=== PATIENT | male | born 1960 | race Caucasian/White ===

== ENCOUNTER → 2016-08-22 | Outpatient (CLI) | payer OTHER ==
[~2016-08-22] MED LIST: AMLO10TA2 PO; ASPI81TA83 OR; ATOR1TAB19 PO; BENA10TA2 OR; BISO5TAB5 PO; CHLO25TA PO; COLA100C2 OR; GLYB2.5T6 OR; HYDR25TA6 OR; LABE30TA OR; METF500T4 OR; METF500T4 PO; ONGLYZA PO; PRIL20CA9 PO; RANI150C OR; SIMV20TA2 OR; TYLE500T53 OR
--- NOTE | 2016-08-22 14:06 | REP ---
PA and lateral chest: Comparison is 08/24/2015. There is an incomplete inspiratory effort. The lung devries are under aerated. No infiltrates or effusions are identified. No nodules or masses are identified. Cardiac size is normal. The marlon, mediastinum, and bony thorax are unremarkable. Impression: Under aerated lung devries from an incomplete inspiratory effort. Given the history renal malignancy, I would recommend a repeat study with optimal inspiration or a chest CT. Signed by Sav Latif MD 08/22/2016 01:57 P
[2016-08-22 19:23] LABS: CALCIUM LEVEL 9.3 MG/DL (8.5-10.1); CREATININE FOR GFR 1.53 MG/DL (0.70-1.30); POTASSIUM SERUM 4.3 MEQ/L (3.5-5.1)
== END ==
LOC: M SMT 13:27
PROVIDERS: ATTEND Urology
DX: C64.2 Malignant neoplasm of left kidney, except renal pelvis (principal)

== ENCOUNTER → 2016-09-10 | Outpatient (CLI) | payer OTHER ==
[2016-09-10 13:33] LABS: CREATININE FOR GFR 1.37 MG/DL (0.70-1.30); GLOMERULAR FILTRATION RATE 56.8 (>56)
== END ==
LOC: M LAB 11:20
PROVIDERS: ATTEND Urology
DX: C64.2 Malignant neoplasm of left kidney, except renal pelvis (principal)

== ENCOUNTER → 2016-09-17 | Outpatient (CLI) | payer OTHER ==
[2016-09-17 12:06] LABS: CREATININE FOR GFR 1.43 MG/DL (0.70-1.30); GLOMERULAR FILTRATION RATE 54.1 (>56)
== END ==
LOC: M LAB 11:11
PROVIDERS: ATTEND Urology
DX: C64.2 Malignant neoplasm of left kidney, except renal pelvis (principal)

== ENCOUNTER → 2016-12-19 | Outpatient (REF) | payer OTHER | LOC: M SFHCCLAY 09:26 | PROVIDERS: ATTEND Family Medicine | DX: L02.611 Cutaneous abscess of right foot (principal) ==

== ENCOUNTER → 2017-01-01 | Outpatient (CLI) | payer OTHER ==
[~2017-01-01] MED LIST changes: +GASTROGRAFIN SOLUTION 30ML (Q9963) As Ordered ONE; +ISOVUE-370 76% 100ML VIAL (Q9967) As Ordered ONE
--- NOTE | 2017-01-01 12:28 | REP ---
CT chest with IV contrast: History: Left kidney cancer. CT contrast dose: 100 ml of Isovue 370 is administered intravenously. No comparison CT study. CT findings: There is a spiculated nodule in the left upper lobe adjacent to the pleura measuring 1.7 cm in greatest diameter x 0.9 x 0.8 cm. Primary versus metastatic lung malignancy cannot be excluded. There is a second noncalcified nodule in the right lower lobe measuring 8 mm in diameter. No other pulmonary nodule is seen. There is a small area of subpleural fibrosis in the left lower lobe. No pleural or pericardial effusion is seen. No hilar or mediastinal mass or adenopathy is observed. No extrathoracic mass or adenopathy is seen. Gynecomastia is seen mild in degree bilaterally. There is evidence of mild diffuse fatty infiltration of the liver. No focal liver lesion is seen. The patient is status post left nephrectomy. Gallstones are seen in the gallbladder. There is an area of focal fatty infiltration in the left lobe of the liver. No bony destructive lesion is seen. Impression: 1. Noncalcified pulmonary nodules noted, one in the left upper lobe measuring 1.7 cm and the other in the right lower lobe measuring 0.8 cm in greatest diameter. Primary versus metastatic pulmonary malignancy cannot be excluded. 2. Cholelithiasis. 3. Fatty infiltration of the liver. 4. Gynecomastia. Signed by Carrington Thompson MD 01/01/2017 01:07 P
--- NOTE | 2017-01-01 13:11 | REP ---
CT abdomen and pelvis without and with IV contrast: With oral contrast. History: Left renal malignancy status post left nephrectomy. CT contrast dose: 100 ccs of Isovue 370 is given intravenously. No comparison study. CT findings: There is diffuse fatty infiltration of the liver seen with a geographic area of decreased attenuation in the left lobe consistent with focal fatty liver change. No liver mass lesion is appreciated. There is a second area of focal fatty liver change adjacent to the intrahepatic segment of the IVC. Spleen is unremarkable. The patient is status post left nephrectomy. Pancreas is normal in appearance. There is no evidence of recurrent mass. There are normal sized periaortic lymph nodes noted. No definite adenopathy is seen. Gallstones are noted in the dependent portion of gallbladder. No right adrenal lesion is seen. No right renal mass is seen. Small and large intestinal bowel loops are normal in the abdomen and pelvis. A normal appendix is observed. Seminal vesicles, prostate and urinary bladder are unremarkable. No abdominal wall defect is seen. Bone window settings show no bony destructive lesion. Impression: 1. Cholelithiasis. 2. Foci of fatty infiltration of the liver. 3. Status post left nephrectomy. 4. No other significant abnormality. Signed by Carrington Thompson MD 01/01/2017 02:54 P
== END ==
LOC: M RAD 09:19
PROVIDERS: ATTEND Internal Medicine Hematology & Oncology
DX: C64.2 Malignant neoplasm of left kidney, except renal pelvis (principal); K80.80 Other cholelithiasis without obstruction; K76.0 Fatty (change of) liver, not elsewhere classified; R91.8 Other nonspecific abnormal finding of lung field; N62 Hypertrophy of breast; Z90.5 Acquired absence of kidney
CPT/HCPCS: 71260; 74178; Q9963; Q9967

== ENCOUNTER → 2017-03-22 | Outpatient (CLI) | payer OTHER ==
[~2017-03-22] MED LIST changes: -GASTROGRAFIN SOLUTION 30ML (Q9963) As Ordered ONE; -ISOVUE-370 76% 100ML VIAL (Q9967) As Ordered ONE
--- NOTE | 2017-03-22 14:30 | REP ---
RIGHT FOOT, FOUR VIEWS: HISTORY: Pain. There is no acute fracture or dislocation. There are old fractures of the bases of the 3rd through 5th metatarsals. The joint spaces are normal in appearance. Osteophytes are present on the inferior and posterior calcaneus. IMPRESSION: There is no acute fracture or dislocation.
== END ==
LOC: M CLY 11:05
PROVIDERS: ATTEND Family Medicine
DX: M79.671 Pain in right foot (principal)

== ENCOUNTER → 2017-03-22 | Outpatient (REF) | payer OTHER ==
[2017-03-22 16:36] LABS: ALBUMIN 3.5 GM/DL (3.2-5.2); ANION GAP 9 MEQ/L (8-16); BLOOD UREA NITROGEN 17 MG/DL (7-18); CALCIUM LEVEL 9.4 MG/DL (8.5-10.1); CARBON DIOXIDE LEVEL 28 MEQ/L (21-32); CHLORIDE LEVEL 100 MEQ/L (98-107); GLOMERULAR FILTRATION RATE > 60.0 (>56); GLUCOSE, FASTING 267 MG/DL (70-105); PHOSPHORUS LEVEL 3.2 MG/DL (2.5-4.9); POTASSIUM SERUM 4.1 MEQ/L (3.5-5.1); SODIUM LEVEL 137 MEQ/L (136-145)
== END ==
LOC: M SFHCCLAY 10:42
PROVIDERS: ATTEND Family Medicine
DX: E11.49 Type 2 diabetes mellitus with other diabetic neurological complication (principal)

== ENCOUNTER → 2017-06-16 | Outpatient (CLI) | payer OTHER ==
[2017-06-16 14:34] LABS: BASO % 0.4 % (0.0-1.0); EOS # 0.6 10^3/uL (0.0-0.50); EOS % 5.6 % (0.0-3.0); HEMATOCRIT 43.8 % (42.0-52.0); HEMOGLOBIN 15.7 g/dl (14.0-18.0); IMMATURE GRANULOCYTE % 0.1 % (0-0); LYMPH # 2.8 10^3/uL (1.5-4.5); MEAN CORPUSCULAR HEMOGLOBIN 32.8 pg (27.0-33.0); MEAN CORPUSCULAR HGB CONC 35.8 g/dl (32.0-36.5); MEAN CORPUSCULAR VOLUME 91.6 fl (80.0-96.0); MONO # 0.7 10^3/uL (0.0-0.8); MONO % 6.6 % (0.0-5.0); NEUTROPHILS # 6.3 10^3/uL (1.8-7.7); NEUTROPHILS % 60.3 % (36.0-66.0); PLATELET COUNT, AUTOMATED 256 10^3/uL (150-450); RED BLOOD COUNT 4.78 10^6/uL (4.30-6.10); WHITE BLOOD COUNT 10.5 10^3/uL (4.0-10.0)
[2017-06-16 14:49] LABS: ALBUMIN 3.5 GM/DL (3.2-5.2); ALKALINE PHOSPHATASE 79 U/L (45-117); ALT/SGPT 40 U/L (12-78); ANION GAP 7 MEQ/L (8-16); AST/SGOT 20 U/L (7-37); BILIRUBIN,TOTAL 0.4 MG/DL (0.2-1.0); BLOOD UREA NITROGEN 20 MG/DL (7-18); CALCIUM LEVEL 8.9 MG/DL (8.5-10.1); CARBON DIOXIDE LEVEL 29 MEQ/L (21-32); CHLORIDE LEVEL 100 MEQ/L (98-107); CREATININE FOR GFR 1.37 MG/DL (0.70-1.30); GLOMERULAR FILTRATION RATE 56.6 (>56); GLUCOSE, FASTING 247 MG/DL (70-100); POTASSIUM SERUM 4.1 MEQ/L (3.5-5.1); SODIUM LEVEL 136 MEQ/L (136-145); TOTAL PROTEIN 7.4 GM/DL (6.4-8.2)
== END ==
LOC: M LAB 14:06
DX: C64.2 Malignant neoplasm of left kidney, except renal pelvis (principal)

== ENCOUNTER → 2017-06-18 | Outpatient (CLI) | payer OTHER ==
[~2017-06-18] MED LIST changes: -AMLO10TA2 PO; -ASPI81TA83 OR; -ATOR1TAB19 PO; -BENA10TA2 OR; -BISO5TAB5 PO; -CHLO25TA PO; -COLA100C2 OR; +GASTROGRAFIN SOLUTION 30ML (Q9963) As Ordered; -GLYB2.5T6 OR; -HYDR25TA6 OR; +ISOVUE-370 76% 100ML VIAL (Q9967) As Ordered; -LABE30TA OR; -METF500T4 OR; -METF500T4 PO; -ONGLYZA PO; -PRIL20CA9 PO; -RANI150C OR; -SIMV20TA2 OR; -TYLE500T53 OR
== END ==
LOC: M RAD 12:07
DX: C78.00 Secondary malignant neoplasm of unspecified lung (principal); C64.2 Malignant neoplasm of left kidney, except renal pelvis
CPT/HCPCS: Q9963

== ENCOUNTER → 2017-08-15 | Outpatient (CLI) | payer OTHER ==
[2017-08-15 08:26] LABS: ALBUMIN 3.6 GM/DL (3.2-5.2); ALBUMIN/GLOBULIN RATIO 0.88 (1.00-1.93); ALKALINE PHOSPHATASE 87 U/L (45-117); ALT/SGPT 35 U/L (12-78); ANION GAP 7 MEQ/L (8-16); AST/SGOT 21 U/L (7-37); BILIRUBIN,TOTAL 0.5 MG/DL (0.2-1.0); BLOOD UREA NITROGEN 22 MG/DL (7-18); CALCIUM LEVEL 9.4 MG/DL (8.5-10.1); CARBON DIOXIDE LEVEL 29 MEQ/L (21-32); CHLORIDE LEVEL 103 MEQ/L (98-107); CREATININE FOR GFR 1.12 MG/DL (0.70-1.30); GLOMERULAR FILTRATION RATE > 60.0 (>56); GLUCOSE, FASTING 166 MG/DL (70-100); POTASSIUM SERUM 3.8 MEQ/L (3.5-5.1); SODIUM LEVEL 139 MEQ/L (136-145); TOTAL PROTEIN 7.7 GM/DL (6.4-8.2)
== END ==
LOC: M LAB 07:10
DX: C64.2 Malignant neoplasm of left kidney, except renal pelvis (principal)

== ENCOUNTER → 2017-09-24 | Outpatient (REF) | payer OTHER ==
[2017-09-24 17:19] LABS: ESTIMATED AVERAGE GLUCOSE 209 MG/DL (60-110); HEMOGLOBIN A1c 8.9 %
== END ==
LOC: M SFHCCLAY 09:41
DX: E11.49 Type 2 diabetes mellitus with other diabetic neurological complication (principal)

== ENCOUNTER → 2017-09-24 | Outpatient (REF) | payer OTHER ==
[2017-09-24 18:41] LABS: FREE T4 1.11 NG/DL (0.76-1.46)
== END ==
LOC: M LAB REF 17:31
DX: C64.2 Malignant neoplasm of left kidney, except renal pelvis (principal); C78.00 Secondary malignant neoplasm of unspecified lung
CPT/HCPCS: 84443

== ENCOUNTER → 2017-09-25 | Outpatient (REF) | payer OTHER ==
[2017-09-25 13:46] LABS: INR 0.94; PROTHROMBIN TIME 12.7 SECONDS (12.4-14.5)
[2017-09-25 13:47] LABS: PARTIAL THROMBOPLASTIN TIME 33.8 SECONDS (26.8-37.9)
== END ==
LOC: M LAB REF 12:57
DX: C64.2 Malignant neoplasm of left kidney, except renal pelvis (principal); C78.00 Secondary malignant neoplasm of unspecified lung
CPT/HCPCS: 85610

== ENCOUNTER → 2017-10-01 | Outpatient (CLI) | payer OTHER | END | disposition home or self-care (01) | LOC: M IRPRO 07:08 | DX: C64.9 Malignant neoplasm of unspecified kidney, except renal pelvis (principal); C78.00 Secondary malignant neoplasm of unspecified lung | CPT/HCPCS: 36561 ==

== ENCOUNTER → 2017-10-03 | Outpatient (CLI) | payer OTHER | LOC: M RAD 18:40 | DX: M25.552 Pain in left hip (principal) | CPT/HCPCS: 73502 ==

== ENCOUNTER → 2017-10-14 | Outpatient (CLI) | payer OTHER | LOC: M PLARAD 08:22 | DX: I67.82 Cerebral ischemia (principal); C64.9 Malignant neoplasm of unspecified kidney, except renal pelvis; R42 Dizziness and giddiness | CPT/HCPCS: 70553 ==

== ENCOUNTER → 2017-10-18 | Outpatient (REF) | payer OTHER ==
[2017-10-18 14:00] LABS: FREE T4 1.07 NG/DL (0.76-1.46)
== END ==
LOC: M LAB REF 13:16
DX: Z51.81 Encounter for therapeutic drug level monitoring (principal); Z79.899 Other long term (current) drug therapy

== ENCOUNTER → 2017-10-23 | Outpatient (CLI) | payer OTHER | LOC: M RAD 10:42 | DX: M25.552 Pain in left hip (principal); R07.81 Pleurodynia; C64.2 Malignant neoplasm of left kidney, except renal pelvis | CPT/HCPCS: 78306 ==

== ENCOUNTER → 2017-11-15 | Outpatient (REF) | payer OTHER ==
[2017-11-15 19:44] LABS: FREE T4 1.07 NG/DL (0.76-1.46)
== END ==
LOC: M LAB REF 16:38
DX: C64.9 Malignant neoplasm of unspecified kidney, except renal pelvis (principal); C78.00 Secondary malignant neoplasm of unspecified lung; Z79.899 Other long term (current) drug therapy
CPT/HCPCS: 84443

== ENCOUNTER → 2017-11-18 | Outpatient (REF) | payer OTHER | LOC: M SFHCLERA 12:05 | DX: L30.9 Dermatitis, unspecified (principal) | CPT/HCPCS: 88305 ==

== ENCOUNTER → 2017-11-30 | Outpatient (CLI) | payer OTHER ==
[2017-11-30 13:43] LABS: ALBUMIN 3.5 GM/DL (3.2-5.2); ALBUMIN/GLOBULIN RATIO 0.88 (1.00-1.93); ALKALINE PHOSPHATASE 111 U/L (45-117); ALT/SGPT 24 U/L (12-78); ANION GAP 7 MEQ/L (8-16); AST/SGOT 17 U/L (7-37); BILIRUBIN,TOTAL 0.3 MG/DL (0.2-1.0); BLOOD UREA NITROGEN 20 MG/DL (7-18); CALCIUM LEVEL 9.1 MG/DL (8.5-10.1); CARBON DIOXIDE LEVEL 28 MEQ/L (21-32); CHLORIDE LEVEL 103 MEQ/L (98-107); CREATININE FOR GFR 1.32 MG/DL (0.70-1.30); GLOMERULAR FILTRATION RATE 59.1 (>56); GLUCOSE, FASTING 195 MG/DL (70-100); POTASSIUM SERUM 4.1 MEQ/L (3.5-5.1); SODIUM LEVEL 138 MEQ/L (136-145); TOTAL PROTEIN 7.5 GM/DL (6.4-8.2)
== END ==
LOC: M LAB 12:39
DX: C78.00 Secondary malignant neoplasm of unspecified lung (principal); C64.2 Malignant neoplasm of left kidney, except renal pelvis
CPT/HCPCS: 80053

== ENCOUNTER → 2017-12-02 | Outpatient (CLI) | payer OTHER | LOC: M RAD 11:45 | DX: C64.2 Malignant neoplasm of left kidney, except renal pelvis (principal); C78.00 Secondary malignant neoplasm of unspecified lung | CPT/HCPCS: Q9963 ==

== ENCOUNTER → 2017-12-03 | Outpatient (REF) | payer OTHER ==
[2017-12-03 18:30] LABS: FREE T4 1.04 NG/DL (0.76-1.46)
== END ==
LOC: M LAB REF 17:21
DX: C64.9 Malignant neoplasm of unspecified kidney, except renal pelvis (principal); C78.00 Secondary malignant neoplasm of unspecified lung; Z79.899 Other long term (current) drug therapy

== ENCOUNTER → 2017-12-20 | Outpatient (REF) | payer OTHER ==
[2017-12-20 19:31] LABS: FREE T4 1.08 NG/DL (0.76-1.46)
== END ==
LOC: M LAB REF 16:58
DX: Z79.899 Other long term (current) drug therapy (principal)

== ENCOUNTER → 2018-01-17 | Outpatient (REF) | payer OTHER ==
[2018-01-17 19:33] LABS: FREE T4 1.15 NG/DL (0.76-1.46)
== END ==
LOC: M LAB REF 17:28
DX: Z79.899 Other long term (current) drug therapy (principal); C78.00 Secondary malignant neoplasm of unspecified lung; C79.51 Secondary malignant neoplasm of bone; C64.9 Malignant neoplasm of unspecified kidney, except renal pelvis

== ENCOUNTER → 2018-01-31 | Outpatient (REF) | payer OTHER ==
[2018-01-31 14:46] LABS: FREE T4 1.13 NG/DL (0.76-1.46)
== END ==
LOC: M LAB REF 13:55
DX: Z79.899 Other long term (current) drug therapy (principal); C78.00 Secondary malignant neoplasm of unspecified lung; C79.51 Secondary malignant neoplasm of bone; C64.9 Malignant neoplasm of unspecified kidney, except renal pelvis

== ENCOUNTER → 2018-03-28 | Outpatient (CLI) | payer OTHER | LOC: M RAD 13:59 | DX: M54.2 Cervicalgia (principal) | CPT/HCPCS: 72052 ==

== ENCOUNTER → 2018-04-08 | Outpatient (CLI) | payer OTHER ==
[~2018-04-08] MED LIST changes: +EMLA CREAM 5GM (LIDOCAINE/PRILOCAINE) As Ordered
== END ==
LOC: M RAD 13:49
DX: C64.9 Malignant neoplasm of unspecified kidney, except renal pelvis (principal); Z79.51 Long term (current) use of inhaled steroids; C78.00 Secondary malignant neoplasm of unspecified lung; Z90.5 Acquired absence of kidney; K57.30 Diverticulosis of large intestine without perforation or abscess without bleeding
CPT/HCPCS: Q9963

== ENCOUNTER → 2018-04-25 | Outpatient (CLI) | payer OTHER ==
[~2018-04-25] MED LIST changes: +AMLO10TA4 PO; +ASPI1TAB PO; +ASPI81TA83 OR; +ATOR1TAB19 PO; +BENA10TA2 OR; +BENA40TA7 PO; +BISO10TA6 PO; +BISO5TAB5 PO; +CHLO25TA PO; +CLON-412 PO; +COLA100C2 OR; -EMLA CREAM 5GM (LIDOCAINE/PRILOCAINE) As Ordered; -GASTROGRAFIN SOLUTION 30ML (Q9963) As Ordered; +GLIM4TAB PO; +GLYB2.5T6 OR; +HYDR25TA6 OR; -ISOVUE-370 76% 100ML VIAL (Q9967) As Ordered; +LABE30TA OR; +LANTINJ4 SC; +LORA10CA PO; +METF500T4 OR; +METF500T4 PO; +OMEP20CA3 PO; +ONGLYZA PO; +PRIL20CA9 PO; +RANI150C OR; +SIMV20TA2 OR; +TYLE500T53 OR
--- NOTE | 2018-04-25 11:26 | REP ---
Chest x-ray: Two views. History: Cough and shortness of breath. Kidney cancer. Comparison study: August 22, 2016. Findings: A right-sided [id number] catheter is noted in place. The lungs are well inflated and clear. The pleural angles are sharp. Heart size is normal. No nodule or infiltrate is appreciated. No hilar or mediastinal adenopathy is seen. There are some mild degenerative changes in the thoracic spine. No significant bony abnormality. Impression: Strruo-H-Cmfy catheter in place. No acute disease. Electronically Signed by Carrington Thompson MD 04/25/2018 11:18 A
== END ==
LOC: M RAD 10:29
PROVIDERS: ATTEND Internal Medicine Medical Oncology
DX: M54.2 Cervicalgia (principal); M25.519 Pain in unspecified shoulder

== ENCOUNTER 2018-05-08 09:45 | Outpatient (RCR) | payer OTHER | END 2018-05-12 | LOC: M PT 09:45 | PROVIDERS: ATTEND Internal Medicine Medical Oncology | DX: M54.2 Cervicalgia (principal); M25.512 Pain in left shoulder ==

== ENCOUNTER 2018-06-03 09:40 | Outpatient (RCR) | payer BC, OTHER ==
[~2018-06-03 09:40] MED LIST changes: -AMLO10TA4 PO; +AMLO10TA5 PO; +CEPH500C PO
== END 2018-06-12 ==
LOC: M PT 09:40
PROVIDERS: ATTEND Internal Medicine Medical Oncology
DX: M54.2 Cervicalgia (principal); M25.512 Pain in left shoulder

== ENCOUNTER → 2018-06-05 | Outpatient (CLI) | payer BC ==
[~2018-06-05] MED LIST changes: +METHACHOLINE KIT (J7674) INH ONE
--- NOTE | 2018-06-05 14:42 | PFTRPT ---
Height: 68.00 Inches Weight: 300.00 Lbs BSA: 2.43 Diagnosis: R06.02 DATE OF PROCEDURE: 06/05/2018 ORDERED BY: Dr. Jaime INTERPRETATION: Study of excellent technical quality. Under protocol, methacholine was administered. At a dose of 10 mg or 63.875 CDUs, a 23% decline in the FEV1 was noted. PC of 5.12 is significant. Flow rates did return to baseline post bronchodilator administration. IMPRESSION: Positive methacholine challenge study. MTDD
== END ==
LOC: M CARPUL 05-29 07:31
PROVIDERS: ATTEND Internal Medicine Pulmonary Disease
DX: R06.02 Shortness of breath (principal)
CPT/HCPCS: 94070; J7674

== ENCOUNTER → 2018-07-07 | Outpatient (CLI) | payer BC ==
[~2018-07-07] MED LIST changes: +GASTROGRAFIN SOLUTION 30ML (Q9963) As Ordered ONE; +ISOVUE-370 76% 100ML VIAL (Q9967) As Ordered ONE; -METHACHOLINE KIT (J7674) INH ONE
--- NOTE | 2018-07-07 12:48 | REP ---
Clinical: History of kidney cancer. Technique: Axial contrast enhanced images from the thoracic inlet to the upper abdomen with coronal and sagittal re-formations using 100 ml Isovue 370 intravenous contrast material. Comparison: 04/08/2018. Findings: The lung devries are well-aerated. There has been an obvious increase in quantity and size to the scattered bilateral pulmonary metastatic foci. As example, the largest previously noted metastatic focus in the left lower lobe previously measuring approximately 5.3 mm has increased to 8 mm maximal diameter. No pleural effusion. No pneumothorax. Tracheobronchial tree is patent. No obvious axillary, hilar, or mediastinal adenopathy is identified. Thoracic aorta without aneurysm or dissection. No cardiomegaly or pericardial effusion. Osseous structures are intact without obvious acute abnormality. Impression: Scattered bilateral pulmonary metastatic foci have increased in quantity and size. Electronically Signed by Isidro Prater MD 07/07/2018 12:40 P
--- NOTE | 2018-07-07 13:06 | REP ---
Clinical: History of kidney cancer. Technique: Axial contrast enhanced images from the lung bases to the pubic symphysis using oral oral (per protocol) and 100 ml Isovue 370 intravenous contrast material with delayed images of the abdomen as well as coronal and sagittal re-formations. Comparison: 04/08/2018. Findings: Lung bases demonstrate scattered bilateral pulmonary metastases which are increased from prior examination. Largest lesion in the left lower lobe measures approximately 8 mm diameter. Liver, spleen, pancreas, bilateral adrenal glands and right kidney are essentially normal/stable. Cholelithiasis noted without evidence for acute cholecystitis. The patient is known to be status post left nephrectomy. Few left periaortic retroperitoneal lymph nodes measure up to approximately 8 mm and are otherwise nonspecific but may be slightly more pronounced than prior examination. The enteric system is without obstruction or acute inflammatory process. Colonic diverticulosis noted without acute diverticulitis. Normal terminal ileum and appendix are identified in the right lower quadrant. Pelvis demonstrates normal bladder and age appropriate prostate/seminal vesicles. No ascites. No focal mass lesion identified. Abdominal aorta and vasculature without aneurysm or dissection. Surrounding musculoskeletal structures demonstrate degenerative changes along with stable lytic lesion in the proximal left femur. Impression: 1. Lung bases demonstrate increased pulmonary metastases. 2. Slightly more prominent appearance to the left periaortic retroperitoneal lymph nodes at the level of the left nephrectomy measure up to approximately 8 mm. 3. Cholelithiasis. 4. Diverticulosis without acute diverticulitis. 5. Stable lytic lesion in the proximal left femur. 6. No ascites. No focal recurrent mass lesion. Electronically Signed by Isidro Prater MD 07/07/2018 12:57 P
== END ==
LOC: M RAD 11:04
PROVIDERS: ATTEND Internal Medicine Medical Oncology
DX: C78.00 Secondary malignant neoplasm of unspecified lung (principal); M89.8X5 Other specified disorders of bone, thigh; K80.20 Calculus of gallbladder without cholecystitis without obstruction; K57.90 Diverticulosis of intestine, part unspecified, without perforation or abscess without bleeding; Z90.5 Acquired absence of kidney; Z85.528 Personal history of other malignant neoplasm of kidney
CPT/HCPCS: 71260; 74177; Q9963; Q9967

== ENCOUNTER → 2018-07-15 | Outpatient (CLI) | payer BC ==
[~2018-07-15] MED LIST changes: -GASTROGRAFIN SOLUTION 30ML (Q9963) As Ordered ONE; -ISOVUE-370 76% 100ML VIAL (Q9967) As Ordered ONE
--- NOTE | 2018-07-15 08:16 | REP ---
PA and lateral chest: Comparison is 04/25/2018. There are no lung masses or nodules. There are no infiltrates or pleural effusions. Lung devries are clear and unchanged. Cardiac size is normal. The marlon, mediastinum, skeletal structures are unremarkable. A right IJ Ijczjh-J-Rvzt is again identified with the tip in the superior vena cava in satisfactory position, unchanged. Impression: [id number], otherwise negative PA and lateral chest. No interval change. Half Electronically Signed by Sav Latif MD 07/15/2018 08:07 A
== END ==
LOC: M LAB 07:14
PROVIDERS: ATTEND Urology
DX: C64.2 Malignant neoplasm of left kidney, except renal pelvis (principal)

== ENCOUNTER → 2018-07-17 | Outpatient (CLI) | payer BC ==
--- NOTE | 2018-07-22 18:38 | SLEEPHOME ---
DATE OF PROCEDURE: 07/17/2018 ORDERED BY: Dr. Jaime Diagnostic home sleep testing was performed due to concern for the obstructive sleep apnea syndrome in this patient with excessive somnolence and nonrestorative sleep. For testing, a nocturnal T3 respiratory monitoring device was used. Continuous record was made of pulse, oxygen saturation, airflow, chest, abdominal strain and body position. 9 hours and 24 minutes of data were reviewed. There were 7 hours and 37 minutes marked as time in bed. During the interval marked time in bed, there were 95 respiratory events identified of 10 seconds in duration or greater for a respiratory event index of 12.5. The events were obstructive. Baseline pulse rate 64, pulse rate ranged 60-80. Baseline saturation 94%, saturations fell to 80%. Testing was performed in both the supine and nonsupine positions. IMPRESSION: Abnormal home sleep testing with repetitive respiratory events and oxygen desaturations to 80% with a respiratory event index of 12 is consistent with the obstructive sleep apnea syndrome. RECOMMENDATIONS: The patient should be referred for a formal sleep evaluation and in laboratory pressure titration.
== END ==
LOC: M SLEEP HO 13:29
PROVIDERS: ATTEND Internal Medicine Pulmonary Disease
DX: G47.30 Sleep apnea, unspecified (principal)

== ENCOUNTER → 2018-08-04 | Outpatient (CLI) | payer BC ==
[~2018-08-04] MED LIST changes: +LEVO500T3 PO
--- NOTE | 2018-08-04 14:47 | REP ---
WHOLE BODY RADIONUCLIDE BONE SCAN: HISTORY: Clear cell renal cell carcinoma progression. COMPARISON: Bone scan October 23, 2017. TECHNIQUE: 22.0 mCi of technetium 99m MDP is injected, and standard whole body bone scan imaging was acquired. SCINTIGRAPHIC FINDINGS: The patient's left kidney is absent. There is uptake in the right kidney and in the urinary bladder. An arthritic pattern of increased uptake is seen in the acromioclavicular joints, the medial compartment of each knee. The area of increased uptake in the greater trochanter of the left proximal femur is much less prominent consistent with improvement. The previously noted metaphyseal uptake pattern in the distal right femur just above the knee is no longer apparent. The previously noted uptake in the right anterior 8th rib is a much less prominent. No new bony lesion is seen. IMPRESSION: Improvement noted. No new skeletal metastatic site is appreciated. Electronically Signed by Carrington Thompson MD 08/04/2018 02:53 P
== END ==
LOC: M RAD 09:25
PROVIDERS: ATTEND Internal Medicine Hematology & Oncology
DX: C64.2 Malignant neoplasm of left kidney, except renal pelvis (principal)
CPT/HCPCS: 78306; A9503

== ENCOUNTER → 2018-11-05 | Outpatient (CLI) | payer BC ==
[~2018-11-05] MED LIST changes: +AMOX500C PO; -ASPI1TAB PO; +ASPI81TA26 PO; +CHLO125TA PO; +GASTROGRAFIN SOLUTION 30ML (Q9963) As Ordered ONE; +ISOVUE-370 76% 100ML VIAL (Q9967) As Ordered ONE; +KEFL250C11 PO; +LEVO25TA5 PO; +LEVO50TA5 PO; +LORA-674 PO; +MAGO400T2 PO
--- NOTE | 2018-11-05 14:14 | REP ---
Clinical: Metastatic renal cell carcinoma. Technique: Axial contrast enhanced images from the thoracic inlet to the upper abdomen with coronal and sagittal re-formations using 100 ml Isovue 370 intravenous contrast material. Comparison: 07/07/2018. Findings: Innumerable bilateral metastatic lesions measure up to approximately 1.4 cm and have increased in size and quantity as compared to prior examination. No consolidation. No effusion. No pneumothorax. Tracheobronchial tree is patent. Mediastinal and hilar lymph nodes measure up to approximately 1.5 cm and remains stable. Thoracic aorta, pulmonary vasculature and heart/pericardium appear normal. Surrounding musculoskeletal structures are intact. Impression: Innumerable bilateral pulmonary metastatic lesions up to 1.4 cm increased in both size and quantity as compared to prior examination. Electronically Signed by Isidro Prater MD 11/05/2018 02:06 P
--- NOTE | 2018-11-05 14:19 | REP ---
Clinical: Metastatic renal cell carcinoma. Technique: Axial contrast enhanced images from the lung bases to the pubic symphysis using oral (per protocol) and 100 ml Isovue 370 intravenous contrast material with coronal and sagittal re-formations as well as delayed images of the abdomen. Comparison: 07/07/2018. Findings: Evidence for prior left nephrectomy. Small lymph nodes in the left upper lobe are similar to prior examination measuring up to approximately 9 mm maximal diameter. No residual mass lesion identified. Liver, spleen, pancreas, bilateral adrenal glands and right kidney are essentially normal/stable. Cholelithiasis again noted without acute cholecystitis. The enteric system is without obstruction or acute inflammatory process. Normal terminal ileum and appendix identified in the right lower quadrant. Pelvis demonstrates normal bladder and age appropriate prostate/seminal vesicles. Small fat containing left inguinal hernia again noted. No ascites. No free air. Impression: 1. Multiple lymph nodes in the left upper abdomen adjacent to the left renal fossa up to 9 mm and essentially unchanged. No ascites or obvious recurrent mass lesion. 2. Cholelithiasis. Electronically Signed by Isidro Prater MD 11/05/2018 02:09 P
== END ==
LOC: M RAD 11:00
PROVIDERS: ATTEND Internal Medicine Hematology & Oncology
DX: C64.9 Malignant neoplasm of unspecified kidney, except renal pelvis (principal)
CPT/HCPCS: 71260; 74177; Q9963; Q9967

== ENCOUNTER → 2018-12-16 | Outpatient (REF) | payer BC ==
[~2018-12-16] MED LIST changes: -BISO10TA6 PO; +BISO10TA7 PO; -GASTROGRAFIN SOLUTION 30ML (Q9963) As Ordered ONE; +INLY5TAB PO; -ISOVUE-370 76% 100ML VIAL (Q9967) As Ordered ONE; -OMEP20CA3 PO; +OMEP20CA4 PO
[2018-12-16 17:55] LABS: HEMOGLOBIN A1c 9.4 %
== END ==
LOC: M SFHCCLAY 10:29
PROVIDERS: ATTEND Family Medicine
DX: E11.49 Type 2 diabetes mellitus with other diabetic neurological complication (principal)

== ENCOUNTER → 2019-01-29 | Outpatient (CLI) | payer BC ==
[~2019-01-29] MED LIST changes: +BISO10TA10 PO; -BISO10TA7 PO; -BISO5TAB5 PO; +BISO5TAB9 PO; +GASTROGRAFIN SOLUTION 30ML (Q9963) As Ordered ONE; +ISOVUE-370 76% 100ML VIAL (Q9967) As Ordered ONE; +METF-791 PO; -METF500T4 PO; +[UNRECOGNIZED DRUG - CODE] PO
--- NOTE | 2019-01-30 06:32 | REP ---
Clinical: History of renal cell carcinoma. Technique: Axial contrast enhanced images from the thoracic inlet to the upper abdomen with coronal and sagittal re-formations using 100 ml Isovue 370 intravenous contrast material. Comparison: 11/05/2018, 12/02/2017. Findings: In comparison with prior examination the bilateral metastatic lesions have either completely resolved or significantly regressed. As example, the previously noted 14.3 mm lesion along the medial left lower lobe currently measures roughly 7 mm maximal diameter. No new metastatic lesions are identified. No consolidation. No effusion. No pneumothorax. Tracheobronchial tree is patent. No obvious adenopathy. Mediastinum demonstrates normal thoracic aorta, pulmonary vasculature and heart/pericardium. Impression: 1. Significant improvement with near complete regression of the pulmonary metastatic lesions. 2. No new acute mediastinal or pleuroparenchymal process appreciated. Electronically Signed by Isidro Prater MD 01/30/2019 06:23 A
--- NOTE | 2019-01-30 06:41 | REP ---
Clinical: History of renal cell carcinoma for restaging. Technique: Axial contrast enhanced images from the lung bases to the pubic symphysis using oral (per protocol) and 100 ml Isovue 370 intravenous contrast material with coronal and sagittal re-formations as well as delayed images of the abdomen. Comparison: 11/05/2018. Findings: Lung bases demonstrate decreased pulmonary metastatic lesions. There is an area of low density involving the medial segment left hepatic lobe adjacent to the falciform which represents a relatively new finding as compared to prior examination. Findings are nonspecific and may represent fatty infiltration although further pathology given the patient's history of metastatic renal carcinoma cannot be excluded. Spleen, pancreas, bilateral adrenal glands and right kidney are normal. The patient is status post left nephrectomy. Cholelithiasis noted without acute cholecystitis. The enteric system is without obstruction or acute inflammatory process. Pelvis demonstrates normal bladder and age appropriate prostate/seminal vesicles. No ascites. No free air. Small left retroperitoneal lymph nodes at the level of the left renal fossa are nonspecific and essentially unchanged. No significant adenopathy or mass lesion appreciated. Abdominal aorta without aneurysm or dissection. Musculoskeletal structures demonstrate degenerative changes without focal abnormality. Impression: 1. 3 cm area of low density in the left hepatic lobe warrants followup examination. Consider ultrasound or MRI examination to reduce radiation exposure. Differential diagnosis includes but is not limited to fatty infiltration as well as metastatic disease given the patient's history of renal cell carcinoma. 2. Cholelithiasis. Electronically Signed by Isidro Prater MD 01/30/2019 06:33 A
== END ==
LOC: M RAD 14:25
PROVIDERS: ATTEND Advanced Practice Midwife
DX: C64.9 Malignant neoplasm of unspecified kidney, except renal pelvis (principal); C78.02 Secondary malignant neoplasm of left lung; Z90.5 Acquired absence of kidney; K80.20 Calculus of gallbladder without cholecystitis without obstruction
CPT/HCPCS: 71260; 74177; Q9963; Q9967

== ENCOUNTER → 2019-01-30 | Outpatient (CLI) | payer BC ==
[~2019-01-30] MED LIST changes: -GASTROGRAFIN SOLUTION 30ML (Q9963) As Ordered ONE; -ISOVUE-370 76% 100ML VIAL (Q9967) As Ordered ONE
--- NOTE | 2019-01-30 12:12 | REP ---
CHEST, TWO VIEWS: Two views of the chest performed and compared to a prior study of 07/15/2018. No acute infiltrate is seen. The heart is normal in size. Mediastinal silhouette is unchanged. Right central venous catheter is seen with the tip in the superior vena cava. There are degenerative changes of the spine. The pulmonary nodules seen on the CT from 01/29/2019 are not visualized on plane radiographs. IMPRESSION: No acute infiltrate. No change since the prior study of 07/15/2018. Electronically Signed by Sav Villarreal MD 01/30/2019 06:45 P
== END ==
LOC: M LAB 10:53
PROVIDERS: ATTEND Urology
DX: C64.2 Malignant neoplasm of left kidney, except renal pelvis (principal)

== ENCOUNTER → 2019-03-03 | Outpatient (CLI) | payer BC ==
[~2019-03-03] MED LIST changes: -GLIM4TAB PO; +GLIM4TAB3 PO; +SYNT75TA PO
--- NOTE | 2019-03-03 16:22 | REP ---
Two-view chest: 03/03/2019. Indication: Cough. Comparison: 01/30/2019. Findings: The lungs are clear. There is no pleural effusion or pneumothorax. Right-sided Port-A-Cath is present with the distal tip in the SVC near the cavoatrial junction. The known pulmonary metastases are better demonstrated on the recent CT evaluation. The cardiac silhouette is not enlarged. Impression: There is no evidence of acute cardiopulmonary process. Electronically Signed by Harmeet Flowers DO 03/03/2019 04:13 P
== END ==
LOC: M RAD 14:56
PROVIDERS: ATTEND Internal Medicine Hematology & Oncology
DX: R05 Cough (principal); C64.9 Malignant neoplasm of unspecified kidney, except renal pelvis

== ENCOUNTER → 2019-04-08 | Outpatient (REF) | payer BC ==
[2019-04-08 16:15] LABS: CALCIUM LEVEL 9.2 MG/DL (8.8-10.2); CREATININE FOR GFR 1.37 MG/DL (0.70-1.30); GLOMERULAR FILTRATION RATE 56.2 (>49); POTASSIUM SERUM 3.7 MEQ/L (3.5-5.1)
[2019-04-08 16:30] LABS: HEMOGLOBIN A1c 9.7 %
== END ==
LOC: M SFHCCLAY 13:03
PROVIDERS: ATTEND Family Medicine
DX: E11.49 Type 2 diabetes mellitus with other diabetic neurological complication (principal)

== ENCOUNTER → 2019-05-21 | Outpatient (CLI) | payer BC ==
[~2019-05-21] MED LIST changes: +GASTROGRAFIN SOLUTION 30ML (Q9963) As Ordered ONE; +ISOVUE-370 76% 100ML VIAL (Q9967) As Ordered ONE; +OMEP-172 PO; -OMEP20CA4 PO
--- NOTE | 2019-05-21 17:18 | REP ---
Whole body radionuclide bone scan: History: Status post renal cell carcinoma. Comparison bone scan study August 04, 2018. Comparison study is also reviewed from October 23, 2017. Technique: 21.7 mCi technetium 99m MDP is injected and standard whole body bone scan imaging was acquired. Scintigraphic findings: There is arthritic uptake in the medial compartment each knee and in both acromioclavicular joints. There is normal distribution of skeletal tracer with uptake in the remaining right kidney and in the urinary bladder. The left kidney is surgically absent. The originally noted area of avid uptake in the left greater trochanter and in the right distal femur are no longer apparent. No new focus of increased skeletal uptake is seen. There is no evidence to suggest skeletal metastatic disease. Impression: No evidence of skeletal metastasis. Previously noted foci of increased uptake in the left proximal femur and right distal femur and right rib cage are no longer apparent. Electronically Signed by Carrington Thompson MD 05/21/2019 06:34 P
--- NOTE | 2019-05-22 06:16 | REP ---
Clinical: Renal cell carcinoma. Restaging. Technique: Axial contrast enhanced images from the thoracic inlet to the upper abdomen with coronal and sagittal re-formations using 100 ml Isovue 370 intravenous contrast material. Comparison: 01/29/2019. Findings: The bilateral lung devries are well-aerated. Very subtle residual small scattered nodules up to approximately 2 mm and non solid ground-glass areas are consistent with continued resolution of prior metastatic lesions. No new consolidation, significant nodule or mass lesion is appreciated. No effusion. No pneumothorax. No axillary, hilar, or mediastinal adenopathy. Mediastinum demonstrates normal thoracic aorta, pulmonary vasculature and heart/pericardium. Musculoskeletal structures are intact without focal abnormality. Impression: 1. Continued improvement and resolution to the previously noted metastatic foci. 2. No new lesions identified. No acute mediastinal or pleuroparenchymal process. Electronically Signed by Isidro Prater MD 05/22/2019 06:08 A
--- NOTE | 2019-05-22 06:43 | REP ---
Clinical: Renal cell carcinoma. Restaging. Technique: Axial contrast enhanced images from the lung bases to the pubic symphysis using oral (per protocol) and 100 ml Isovue 370 intravenous contrast material with delayed images of the abdomen as well as coronal and sagittal re-formations. Comparison: 01/29/2019. Findings: Liver, spleen, pancreas, bilateral adrenal glands and right kidney are normal. Evidence of prior left nephrectomy. Previously identified hypodense region within the left hepatic lobe is no longer visible and likely represented transient fatty infiltration. The left renal fossa is unremarkable and without evidence for recurrent mass lesion. The enteric system including stomach, small and large bowel is without obstruction or acute inflammatory process. Normal terminal ileum, cecum and appendix identified in the right lower quadrant. Pelvis demonstrates normal bladder and age appropriate prostate/seminal vesicles. Small fat containing left inguinal hernia noted. No ascites. No free air. No intraperitoneal or retroperitoneal adenopathy. Abdominal aorta and vasculature without aneurysm or dissection. Musculoskeletal structures appear intact without focal osseous abnormality. Impression: 1. No evidence for recurrence or metastatic disease. 2. Cholelithiasis. 3. Small fat containing left inguinal hernia. 4. No ascites. No adenopathy. No focal inflammatory stranding. Electronically Signed by Isidro Prater MD 05/22/2019 06:35 A
== END ==
LOC: M RAD 09:28
PROVIDERS: ATTEND Internal Medicine Hematology
DX: C64.9 Malignant neoplasm of unspecified kidney, except renal pelvis (principal)
CPT/HCPCS: 71260; 74177; 78306; A9503; Q9963; Q9967

== ENCOUNTER → 2019-07-17 | Outpatient (REF) | payer BC ==
[~2019-07-17] MED LIST changes: +BENA40TA5 PO; -BENA40TA7 PO; -BISO10TA10 PO; +BISO10TA14 PO; +BISO5TAB14 PO; -BISO5TAB9 PO; -GASTROGRAFIN SOLUTION 30ML (Q9963) As Ordered ONE; -GLIM4TAB3 PO; +GLIM4TAB5 PO; -ISOVUE-370 76% 100ML VIAL (Q9967) As Ordered ONE; +LEVO100T5 PO; -OMEP-172 PO; +OMEP1CAP73 PO
[2019-07-17 16:54] LABS: HEMOGLOBIN A1c 8.4 %
== END ==
LOC: M SFHCCLAY 13:02
PROVIDERS: ATTEND Family Medicine
DX: E11.49 Type 2 diabetes mellitus with other diabetic neurological complication (principal)

== ENCOUNTER → 2019-07-30 | Outpatient (REF) | payer BC ==
[2019-07-30 19:23] LABS: INR 1.05; PROTHROMBIN TIME 13.5 SECONDS (11.8-14.0)
[2019-07-30 19:24] LABS: PARTIAL THROMBOPLASTIN TIME 34.1 SECONDS (25.0-38.4)
[2019-07-30 19:37] LABS: COMPLEMENT C3 199 MG/DL (90-180); COMPLEMENT C4 32 MG/DL (10-40)
[2019-08-04 00:06] LABS: ANCA-ATYPICAL <1:20 titer (Neg:<1:20); ANTI DS-DNA AB Negative (Negative); ANTI-GLOMERULAR BASEMENT MEMB 4 units (0-20); CYTOPLASMIC NEUTROP AB ANCA-C <1:20 titer (Neg:<1:20); PERINUCLEAR AB ANCA-P <1:20 titer (Neg:<1:20)
== END ==
LOC: M LAB REF 16:52
PROVIDERS: ATTEND Internal Medicine Nephrology
DX: R80.9 Proteinuria, unspecified (principal); R31.9 Hematuria, unspecified; N18.3 Chronic kidney disease, stage 3 (moderate)

== ENCOUNTER → 2019-08-04 | Outpatient (REF) | payer BC ==
[2019-08-04 14:34] LABS: URINE TOTAL PROTEIN 217.2 MG/DL (0-12)
== END ==
LOC: M LAB REF 13:26
PROVIDERS: ATTEND Internal Medicine Nephrology
DX: R80.9 Proteinuria, unspecified (principal)

== ENCOUNTER → 2019-08-12 | Outpatient (CLI) | payer BC ==
[~2019-08-12] MED LIST changes: +GASTROGRAFIN SOLUTION 30ML (Q9963) As Ordered ONE; +ISOVUE-370 76% 100ML VIAL (Q9967) As Ordered ONE
--- NOTE | 2019-08-12 14:20 | REP ---
REASON: History of renal cell carcinoma. All priors were reviewed. The latest of which is dated 05/21/2019. CONTRAST: 100 mL of Isovue 370. The mediastinum and pulmonary hilar are stable showing no evidence of mass or adenopathy. There are no pleural or pericardial effusions. The imaged upper abdomen and imaged osseous structures appear stable. Evaluation of the lung devries, shows numerable new and larger pulmonary nodules. The largest nodule is in the right lower lobe and today it measures 1.6 cm. Previously, this measured 1.3 cm. That measurement is in its greatest dimension, however, the width of this nodule has doubled. In the right middle lobe abutting the major fissure, there is a nodule which previously measured 5 mm and today measures 1 cm. Other smaller nodules scattered throughout the lung devries have also increased in size and there are multiple new subcentimeter sized nodules. IMPRESSION: Numerable pulmonary nodules has described above consistent with worsening disease. Close followup is recommended. Other findings as described above. Electronically Signed by Tejas Jim DO 08/12/2019 03:03 P
--- NOTE | 2019-08-12 14:33 | REP ---
REASON: Followup renal cell carcinoma. COMPARISON: Multiple, the latest 05/21/2019 Contrast 100 mL of Isovue 370. The patient is status post left nephrectomy. The liver, gallbladder, spleen, pancreas, right adrenal gland and right kidney are unchanged. There appears to be a left adrenal gland remnant status quo. The abdominal aorta and paraaortic regions are unchanged. No retroperitoneal adenopathy has developed, however, there were small stable periaortic lymph nodes. There are multiple nonenlarged mesenteric lymph nodes status quo. Stable lymph nodes are also seen in the mike hepatis. There is no free fluid or free air. The bowel loops and their mesenteries are again seen to be within normal limits. Bowel now occupies the left renal fossa. CT PELVIS: The pelvic bowel loops and their mesenteries are unchanged. There is no pelvic mass or adenopathy. There is no free fluid or free air. Bone window technique throughout the exam shows no evidence of significant change compared to the latest prior, however, it should be stated that the lytic lesion seen in the left proximal femur has increased in size when compared to an older exam of 01/01/2017 when it previously measured 1.7 cm, today it measures 3.2 cm. IMPRESSION: There has been no significant change compared to the latest prior exam. Findings as described above. There is a lytic lesion in the left proximal femur as described above. This needs to be correlated clinically with appropriate followup. Electronically Signed by Tejas Jim DO 08/12/2019 03:03 P
== END ==
LOC: M RAD 10:59
PROVIDERS: ATTEND Internal Medicine Medical Oncology
DX: C64.9 Malignant neoplasm of unspecified kidney, except renal pelvis (principal)
CPT/HCPCS: 71260; 74177; Q9963; Q9967

== ENCOUNTER → 2019-10-29 | Outpatient (CLI) | payer BC ==
[~2019-10-29] MED LIST changes: +ALLE10TA62 PO; -AMLO10TA5 PO; +AMLO1TAB25 PO; +BREO1INH; -ISOVUE-370 76% 100ML VIAL (Q9967) As Ordered ONE; +ISOVUE-370 76% 100ML VIAL As Ordered ONE; +LEVO112T2 PO; +LEVO125T4 PO; -METF-791 PO; +METF-838 PO; +MINO2.5T PO; +SPIR-10 PO
--- NOTE | 2019-10-29 15:25 | REP ---
Clinical: History of kidney carcinoma. Restaging. Technique: Axial contrast enhanced images from the thoracic inlet to the upper abdomen (followed by CT of the abdomen and pelvis) using 100 ml Isovue 370 intravenous contrast material. Coronal and sagittal re-formations obtained. Comparison: 08/12/1927, 05/21/2019. Findings: The bilateral lung devries are well-aerated and the previously noted bilateral metastatic nodules have either completely resolved or considerably regressed. The largest residual nodule is identified at the right base previously measuring roughly 16 mm and currently measuring approximately 9.5 mm AP diameter at the same level. No new pulmonary nodules or metastatic lesions are identified. No consolidation. No effusion. No pneumothorax. No adenopathy. Tracheobronchial tree is patent. Mediastinum demonstrates normal thoracic aorta, pulmonary vasculature, and heart/pericardium. Limited upper abdomen demonstrates prior left nephrectomy along with normal bilateral adrenal glands and evidence for cholelithiasis. Musculoskeletal structures demonstrate age-related changes without focal osseous abnormality. [id number] identified with tip in the SVC. Impression: 1. Previously noted metastatic nodules have resolved or regressed. No enlarging or new metastatic lesions are identified. No acute mediastinal or pleuroparenchymal process appreciated. Electronically Signed by Isidro Prater MD 10/29/2019 03:16 P
--- NOTE | 2019-10-29 15:35 | REP ---
Clinical: History of renal carcinoma. Restaging. Technique: Axial contrast enhanced images from the lung bases to the pubic symphysis using oral (per protocol) and 100 ml Isovue 370 intravenous contrast material with coronal and sagittal re-formations. Delayed images of the abdomen obtained. Comparison: 08/12/2019, 05/21/2019. Findings: Evidence of prior left nephrectomy with compensatory enlargement to the right kidney demonstrating mild chronic perinephric stranding. No hydronephrosis, nephrolithiasis, cystic or mass lesion identified. Left renal fossa is relatively normal and without evidence for recurrence or metastatic disease. Liver, spleen, pancreas, bilateral adrenal glands are normal. Cholelithiasis noted without acute cholecystitis. The enteric system is without obstruction or acute inflammatory process. Scattered colonic diverticula noted without acute diverticulitis. Normal terminal ileum and appendix are identified in the right lower quadrant. Pelvis demonstrates normal bladder and age appropriate prostate/seminal vesicles. No ascites. No free air. No significant intraperitoneal or retroperitoneal adenopathy. Abdominal aorta and vasculature without aneurysm or dissection. Musculoskeletal structures demonstrate age-related changes. The somewhat lytic lesion in the left proximal femur is again noted and unchanged. Impression: 1. Left nephrectomy without evidence for recurrence or metastatic disease. Compensatory enlargement to the right kidney noted. 2. Scattered colonic and sigmoid diverticula without acute diverticulitis. 3. Cholelithiasis. 4. Lytic lesion in the left proximal femur again noted which may warrant further investigation. Electronically Signed by Isidro Prater MD 10/29/2019 03:26 P
== END ==
LOC: M RAD 10:43
PROVIDERS: ATTEND Internal Medicine Medical Oncology
DX: C64.9 Malignant neoplasm of unspecified kidney, except renal pelvis (principal); K80.20 Calculus of gallbladder without cholecystitis without obstruction
CPT/HCPCS: 71260; 74177; Q9963; Q9967

== ENCOUNTER → 2020-02-01 | Outpatient (REF) | payer BC ==
[~2020-02-01] MED LIST changes: -GASTROGRAFIN SOLUTION 30ML (Q9963) As Ordered ONE; -ISOVUE-370 76% 100ML VIAL As Ordered ONE
[2020-02-01 16:04] LABS: HEMOGLOBIN A1c 7.9 %
== END ==
LOC: M LAB REF 14:59
PROVIDERS: ATTEND Family Medicine
DX: E11.40 Type 2 diabetes mellitus with diabetic neuropathy, unspecified (principal)

== ENCOUNTER → 2020-02-08 | Outpatient (REF) | payer BC | LOC: M LAB REF 17:57 | PROVIDERS: ATTEND Internal Medicine Nephrology | DX: N18.3 Chronic kidney disease, stage 3 (moderate) (principal); R80.9 Proteinuria, unspecified ==

== ENCOUNTER → 2020-02-16 | Outpatient (CLI) | payer BC ==
[~2020-02-16] MED LIST changes: +GASTROGRAFIN SOLUTION 30ML (Q9963) As Ordered ONE; +ISOVUE-370 76% 100ML VIAL As Ordered ONE
--- NOTE | 2020-02-22 10:16 | REP ---
CT ABDOMEN AND PELVIS WITH INTRAVENOUS (IV) AND ORAL CONTRAST HISTORY: Kidney cancer. COMPARISON: Abdominal CT study 10/29/2019. Prior study 08/12/[address] CONTRAST DOSE: 50 mL of intravenous Isovue-[address] FINDINGS: Preliminary digital bagger meat radiograph is unremarkable. Normal bowel gas pattern. The patient is status post left nephrectomy. There is no evidence of recurrent mass or adenopathy in the nephrectomy bed. Tiny accessory splenule is again noted. Gallstones are noted in the gallbladder lumen. The right kidney enhances normally and remains morphologically intact. No right renal mass is seen. No hydronephrosis is noted. No focal hepatic lesion is seen. The pancreas shows no evidence of mass or cyst. Normal appendix is seen. Small and large bowel loops are normal in the abdomen and pelvis. Seminal vesicles, prostate, and urinary bladder are unremarkable. No abdominal wall defect is seen. Bone window settings show no new bony abnormality. The previously noted lytic lesion in the intertrochanteric left proximal femur. This measures 2.9 cm right to left by 3.1 cm anterior to posterior and is felt to be unchanged in size and appearance from the 08/12/2019 study. No new bony destructive lesion is appreciated. IMPRESSION: No CT evidence of intraabdominal progression. Status post left nephrectomy. No change from 10/29/2019. MTDD
--- NOTE | 2020-02-22 10:17 | REP ---
CT CHEST WITH IV CONTRAST HISTORY: Kidney cancer. COMPARISON: Chest CT study October 29, 2019, and August 12, 2019. CT CONTRAST DOSE: 50 mL of intravenous Isovue-[address] FINDINGS: There is a right-sided [id number]-[id number] catheter. There is good opacification of the pulmonary arterial tree and the thoracic aorta. No vascular abnormality is seen. No hilar or mediastinal mass or adenopathy is observed. There is no evidence of pleural or pericardiac effusions. Gallstones are noted in the gallbladder. Normal right adrenal gland. Left adrenal gland appears normal as well. Patient is status post left nephrectomy. On lung window settings, there are multiple small subcentimeter nodules which are felt to be stable when compared with the most recent prior study of October 29, 2019, and improved when compared with the August 12, 2019, prior study. The largest of these nodules is a 1.4 cm density just above the right hemidiaphragm in the right lower lobe which is felt to be unchanged. No definite new pulmonary nodule is seen. There are scattered areas of linear fibrosis. No bony destructive lesion is appreciated. IMPRESSION: Stable chest CT findings since the most recent prior study of October 29, 2019. Pulmonary nodules have improved compared with the August 12, 2019, study. MTDD
== END ==
LOC: M RAD 09:20
PROVIDERS: ATTEND Internal Medicine Medical Oncology
DX: C64.9 Malignant neoplasm of unspecified kidney, except renal pelvis (principal); R91.1 Solitary pulmonary nodule; Z96.0 Presence of urogenital implants; Z90.5 Acquired absence of kidney
CPT/HCPCS: 71260; 74177; Q9963; Q9967

== ENCOUNTER → 2020-06-06 | Outpatient (CLI) | payer BC ==
[~2020-06-06] MED LIST changes: -GASTROGRAFIN SOLUTION 30ML (Q9963) As Ordered ONE; -ISOVUE-370 76% 100ML VIAL As Ordered ONE
[2020-06-06 16:15] LABS: CALCIUM LEVEL 9.3 MG/DL (8.8-10.2); CREATININE FOR GFR 1.42 MG/DL (0.70-1.30); GLOMERULAR FILTRATION RATE 53.8 (>49); POTASSIUM SERUM 4.8 MEQ/L (3.5-5.1)
[2020-06-06 16:21] LABS: HEMOGLOBIN A1c 7.3 %
--- NOTE | 2020-06-06 18:41 | REPPI ---
INDICATION: M25.462 SWELLING OF LEFT KNEE JOINT. COMPARISON: Comparison bilateral knee radiographic series December 08, 2015.. TECHNIQUE: Five views of the left knee. FINDINGS: Five views of the left knee demonstrate 3 compartment osteoarthritis with medial and patellofemoral compartment narrowing and spur formation. Early spur formation is seen in the lateral compartment. There is sclerosis about the narrowed medial compartment. Joint space narrowing appears a little more prominent than it did in the 2016 radiographs. There is no evidence of joint effusion or erosive change. Vascular calcification is noted. On lateral radiograph there are 2 or 3 small ossicles which may reflect osteocartilaginous loose bodies. These are unchanged.. No fracture or subluxation is seen. No opaque foreign body noted. IMPRESSION: 3 compartment osteoarthritis of the left knee, most pronounced in the medial and patellofemoral compartments. Probable osteocartilaginous loose bodies. Vascular calcification. Medial compartment joint space narrowing is somewhat more prominent than on the 2016 study.. <Electronically signed by Amauri Thompson > 06/06/20 [id number]
== END ==
LOC: M PLAIMG 12:06
PROVIDERS: ATTEND Family Medicine
DX: M17.12 Unilateral primary osteoarthritis, left knee (principal); M25.462 Effusion, left knee; E11.49 Type 2 diabetes mellitus with other diabetic neurological complication; I10 Essential (primary) hypertension

== ENCOUNTER → 2020-06-08 | Outpatient (CLI) | payer BC ==
--- NOTE | 2020-06-09 05:21 | REPPI ---
INDICATION: LEFT HAND PAIN COMPARISON: None. TECHNIQUE: AP, lateral, bilateral oblique views left hand. FINDINGS: Mild age related arthritic changes are appreciated including periarticular sclerosis, joint space narrowing and marginal spurring primarily involving the interphalangeal joints. No acute fracture or dislocation. No subcutaneous emphysema or foreign body. IMPRESSION: Mild generalized arthritic changes. No acute fracture or dislocation. <Electronically signed by Isidro Prater > 06/09/20 [id number]
== END ==
LOC: M PLAIMG 11:54
PROVIDERS: ATTEND Internal Medicine Medical Oncology
DX: M79.642 Pain in left hand (principal)

== ENCOUNTER → 2020-07-08 | Outpatient (CLI) | payer BC, MEDICAID ==
[~2020-07-08] MED LIST changes: +GASTROGRAFIN SOLUTION 30ML (Q9963) As Ordered ONE; +ISOVUE-370 76% 100ML VIAL As Ordered ONE; +LEVO150T42 PO
--- NOTE | 2020-07-08 13:54 | REP ---
INDICATION: KIDNEY CA. COMPARISON: 02/16/2020, 10/29/2019 right-sided indwelling jugular catheter is again seen tip in the SVC. The lung devries are well inflated there is no pleural effusion, pleural thickening or calcified plaque. The right lower lobe of along the diaphragmatic surface the liver is a 14.5 mm nodule unchanged from the previous study. In the right upper lobe on image 35 there is a 4.3 mm nodule which appears larger in volume than the previous study although they are about the same length there are other peripheral nodules there are the same or slightly larger ill-defined densities peripherally in the left upper lung zone image 45 and 42 show no gross change. TECHNIQUE: A bolus 100 mL Isovue 370 scanning through the chest with coronal and sagittal reconstructions. FINDINGS: A right-sided indwelling jugular catheter is again seen tip in the SVC. The lung devries are well inflated. There is no pleural effusion, pleural thickening or calcified plaque. In the right lower lobe along the diaphragmatic surface of the liver is a 1.45 mm nodule unchanged from the previous study. In the right upper lobe on image 35 there is a 4.3 mm nodule which appears larger in volume than the previous study although they are about the same length there are other peripheral nodules that are the same or slightly larger. Ill-defined densities peripherally in the left upper lung zone image 45 and 42 show no gross change. Heart is not enlarged. No pericardial thickening or effusion. The aorta has some calcifications but no aneurysm or dissection. No pathologic sized mediastinal, hilar, axillary or supraclavicular adenopathy. Bone windows show the sternum, manubrium, clavicles, scapulae and humeral head portions visible as well as ribs intact. Spine without acute finding or compression deformity. Adrenal glands grossly unremarkable. Patient has had a left nephrectomy. Please see the abdominal CT for discussion of abdominal findings. There is no hiatal hernia. IMPRESSION: 1. There bilateral small pulmonary nodules which are the same or and a few cases a mm or 2 larger than on the previous study most of these are less than 5 mm. The largest at 1.4 cm is unchanged. 2. There is no mediastinal, hilar, axillary supraclavicular adenopathy or mass. 3. Bones without acute finding. No destructive lesion. <Electronically signed by Bernardo Candelario > 07/08/20 [id number]
--- NOTE | 2020-07-08 14:14 | REP ---
INDICATION: KIDNEY CA. COMPARISON: 02/16/2020, 10/29/2019. TECHNIQUE: Oral Gastrografin mixture per our bowel contrast protocol followed by bolus 100 mL Isovue 370 scanning through the abdomen and pelvis with both coronal and sagittal reconstructions provided delayed images then obtained through the abdomen. FINDINGS: CT abdomen: There is no hiatal hernia. Stomach with small amount of retained fluid but no gross mass. There is no hepatosplenomegaly, focal hepatic or splenic lesion nor intrahepatic biliary dilatation. Small splenule anterior to the spleen on image 63 unchanged. The gallbladder shows multiple rim calcified stones in the dependent portion, the largest about 11 mm. No biliary dilatation in the liver or to the pancreatic head. Pancreas grossly intact. The aorta is without aneurysm or dissection. No periaortic,, mesenteric or other retroperitoneal pathologic sized lymphadenopathy. Multiple small nodes are seen which are unchanged. Small bowel loops are filled with oral contrast and without mass, wall thickening or obstructive change. Oral contrast reaches the colon to the level of the proximal transverse colon. No sign of colitis, diverticulitis, stricture or mass. Adrenal glands appear grossly normal. Right kidney shows compensatory hypertrophy and the left kidney is surgically absent. There is no evidence of mass in the left renal fossa. Pancreas extends into a portion of that the left renal fossa. The delayed images show anterior cortex 10 mm simple cyst on the right kidney, stable. No solid mass identified. There is another hypodense nodule about 6 a mm laterally in the upper pole. No hydronephrosis, stone or hydroureter. The ureter is seen to have a normal course 2 the bladder without dilatation or stone. Lung windows show no perforation or free air. There is no ascites. Bone windows show marginal osteophytes at several vertebral levels and no compression deformity or destructive lesion. Visualized ribs are intact CT pelvis: Sacrum, SI joints, pelvis and hips show no acute finding. The iliac and femoral arteries show calcifications without aneurysm distal left colon sigmoid and rectum unremarkable small bowel loops in the lower abdomen upper pelvis were unremarkable appendix is seen and normal. There is no pelvic lymphadenopathy or free fluid. Bladder partially filled without mass, wall thickening or stone. Presacral space unremarkable. No ventral or inguinal hernia nor pathologic sized inguinal adenopathy. IMPRESSION: 1. Status post left nephrectomy with no evidence of a current mass in the left renal fossa. 2. Right kidney shows a stable 10 mm simple cyst anterior upper pole and laterally in the upper pole a 6 mm hypodensity too small to characterize. Both of these may be followed as previously. 3. Multiple layered calcified gallstones. The liver, spleen, pancreas and adrenal glands are normal. 4. Colon and small bowel loops without any acute finding. Bones without acute abnormality. 5. No definite signs pathologic lymphadenopathy. Bones intact. <Electronically signed by Bernardo Candelario > 07/08/20 [id number]
== END ==
LOC: M RAD 08:56
PROVIDERS: ATTEND Internal Medicine Medical Oncology
DX: Z90.5 Acquired absence of kidney (principal); N28.1 Cyst of kidney, acquired; K80.20 Calculus of gallbladder without cholecystitis without obstruction; C64.9 Malignant neoplasm of unspecified kidney, except renal pelvis
CPT/HCPCS: 71260; 74177; Q9963; Q9967

== ENCOUNTER → 2020-07-27 | Outpatient (CLI) | payer MEDICAID, OTHER ==
[~2020-07-27] MED LIST changes: -GASTROGRAFIN SOLUTION 30ML (Q9963) As Ordered ONE; -ISOVUE-370 76% 100ML VIAL As Ordered ONE
--- NOTE | 2020-07-27 09:18 | REPPI ---
INDICATION: C64.2 MALIGNANT NEOPLASM OF LEFT KIDNEY, EXCEPT RENAL PELVIS COMPARISON: 03/03/2019 TECHNIQUE: PA and lateral. FINDINGS: [id number] with tip in the SVC. The mediastinum and cardiac silhouette are normal. The lung devries are clear and without acute consolidation, effusion, or pneumothorax. The small nodular densities noted on recent CT are poorly evaluated by radiographic technique. The skeletal structures are intact and normal. IMPRESSION: No acute cardiopulmonary process. <Electronically signed by Isidro Prater > 07/27/20 0914
== END ==
LOC: M PLAIMG 09:00
PROVIDERS: ATTEND Urology
DX: C64.2 Malignant neoplasm of left kidney, except renal pelvis (principal)

== ENCOUNTER → 2020-10-12 | Outpatient (REF) | payer OTHER ==
[~2020-10-12] MED LIST changes: +COVI2.5V IM
[2020-10-12 17:32] LABS: TOTAL PROTEIN 7.9 GM/DL (6.4-8.2)
[2020-10-13 10:49] LABS: ALBUMIN 4.21 GM/DL (3.29-5.55); ALBUMIN % 53.3 % (55.8-66.1); ALPHA-1-GLOBULIN % 3.4 % (2.9-4.9); ALPHA-1-GLOBULINS 0.27 GM/DL (0.17-0.41); ALPHA-2-GLOBULINS 1.26 GM/DL (0.42-0.99); ALPHA-2-GLOBULINS % 15.9 % (7.1-11.8); BETA-1-GLOBULINS 0.42 GM/DL (0.28-0.60); BETA-1-GLOBULINS % 5.3 % (4.7-7.2); BETA-2-GLOBULINS 0.41 GM/DL (0.19-0.55); BETA-2-GLOBULINS % 5.2 % (3.2-6.5); GAMMA GLOBULIN % 16.9 % (11.1-18.8); GAMMA GLOBULINS 1.34 GM/DL (0.65-1.58)
== END ==
LOC: M LAB REF 16:48
PROVIDERS: ATTEND Internal Medicine Nephrology
DX: N18.30 Chronic kidney disease, stage 3 unspecified (principal); R80.9 Proteinuria, unspecified

== ENCOUNTER → 2020-10-29 | Outpatient (CLI) | payer OTHER ==
[~2020-10-29] MED LIST changes: +GASTROGRAFIN SOLUTION 30ML (Q9963) As Ordered ONE; +ISOVUE-370 76% 100ML VIAL As Ordered ONE
--- NOTE | 2020-10-29 11:58 | REP ---
INDICATION: MET KIDNEY CA COMPARISON: Multiple the latest 07/08/2020 TECHNIQUE: Standard helical technique after the intravenous administration of 100 cc Isovue 370 FINDINGS: The mediastinum and pulmonary marlon are stable. There is no evidence of a mass or adenopathy. There are no pleural or pericardial effusions. The imaged osseous structures are stable. Evaluation of the lung devries shows multiple and in fact numerable pulmonary nodules of various sizes some stable with others having increased significantly in size particularly in the left lower lobe the nodule seen previously measuring 5 mm now measures 1 cm and also in the right upper lobe the nodule seen previously measuring 7 mm no measures 1 cm. The large right lower lobe nodule seen previously which measured 1.5 cm has significantly improved and is now barely perceptible. There are other nodules which are stable. IMPRESSION: Multiple pulmonary nodules as described above waxing and waning. I cannot rule out the possibility of a new tiny nodule due to the multitude of the nodules present. The nodules which have enlarged are certainly concerning for worsening disease. <Electronically signed by Tejas Jim > 10/29/20 [id number]
--- NOTE | 2020-10-29 12:05 | REP ---
INDICATION: MET KIDNEY CA. COMPARISON: Multiple latest 07/08/2020 TECHNIQUE: Standard helical technique after the intravenous administration of 100 cc Isovue 370 and oral bowel preparatory contrast administration. FINDINGS: The liver, gallbladder, spleen, pancreas, right adrenal gland, and right kidney are unchanged. The patient is status post left nephrectomy. Once again, there are numerous round and oval-shaped nonenlarged mesenteric lymph nodes having a stable appearance. Some of the nodes are borderline in size. There is no change in appearance of the abdominal aorta or para-regions. There is no significant change in the appearance of the bowel loops or the mesenteries. There is no free fluid or free air. No mass has developed. Bone window technique throughout the examination shows a new lytic lesion in the right femoral head which measures 1.5 cm. The larger mixed density lesion seen in the left femoral neck and greater trochanter is unchanged. IMPRESSION: 1. Evidence of skeletal metastatic lesions as described above. 2. Known cholelithiasis. 3. No evidence of acute intra-abdominal or intrapelvic disease with other findings as described above. <Electronically signed by Tejas Jim > 10/29/20 [id number]
== END ==
LOC: M RAD 09:58
PROVIDERS: ATTEND Internal Medicine Medical Oncology
DX: C64.9 Malignant neoplasm of unspecified kidney, except renal pelvis (principal); C79.51 Secondary malignant neoplasm of bone
CPT/HCPCS: 71260; 74177; Q9963; Q9967

== ENCOUNTER → 2020-12-22 | Outpatient (CLI) | payer OTHER ==
[~2020-12-22] MED LIST changes: -GASTROGRAFIN SOLUTION 30ML (Q9963) As Ordered ONE; -ISOVUE-370 76% 100ML VIAL As Ordered ONE; +LEVO137C PO
--- NOTE | 2020-12-22 13:36 | REP ---
INDICATION: MET RENAL CELL CA. COMPARISON: Comparison radionuclide bone scan is from May 21, 2019. August 04, 2018 and October 23, 2017 images are also reviewed. Comparison is made with recent CT study of the abdomen and pelvis October 29, 2020.. TECHNIQUE/RADIOTRACER AND DOSE: 22.0 mCi of Technetium-99m MDP was injected and standard whole-body bone scanning is acquired. FINDINGS: Today's bone scan images demonstrate a normal distribution of skeletal tracer. The left kidney is surgically absent. There is osteoarthritic uptake in the acromioclavicular joints bilaterally, right greater than left. There is also osteoarthritic uptake in the medial compartment of each knee. These findings are unchanged. There is a new focus of increased uptake in the femoral neck or head neck junction region on the right hip. This is felt to correspond with the new radiolucency seen on recent CT study. It is suspicious for a new metastasis. The known metastatic focus previously observed in 2018 in the region the greater trochanter on the left does not show avid uptake today unchanged from the prior study. The only other new focus of increased uptake visible on today's bone scan is in the right mandible. This is nonspecific and could be periodontal disease. Radionuclide bone scan images are otherwise unremarkable. IMPRESSION: There is a new suspicious focus of increased uptake in the femoral neck on the right corresponding with recent CT study. Osteoarthritic uptake is noted. A quick the cul uptake focus in the right mandible.. <Electronically signed by Amauri Thompson > 12/22/20 [id number]
== END ==
LOC: M RAD 07:49
PROVIDERS: ATTEND Internal Medicine Medical Oncology
DX: C64.9 Malignant neoplasm of unspecified kidney, except renal pelvis (principal); M17.0 Bilateral primary osteoarthritis of knee; C79.51 Secondary malignant neoplasm of bone
CPT/HCPCS: 78306; A9503

== ENCOUNTER → 2020-12-22 | Outpatient (CLI) | payer OTHER ==
--- NOTE | 2020-12-22 15:47 | RADONC.CN ---
Radiation Oncology Hx/Consult Radiation Oncology Consult Date of Service: Dec 22, 2020 Pt Identifier Gerald Nash is a 60 year old male with with a history of stage IV RCC. He has had stable metastatic disease on axitinib/keytruda and xgeva, however, he had to discontinue xgeva due to pending dental work. He is referred by Dr. Arauz for consideration of palliative RT to the hips. Diagnosis/Treatment History Oncologic History 1. Left radical nephrectomy 2010 for a left kidney clear cell carcinoma. 2. Found to have lung metastases on a July 2016 CT scan with a left lung nodule biopsy 09/2016 showing metastatic renal cell carcinoma. Started pazopanib September 2016 with subsequent positive response. CT scan from 08/2017 showing progression in the pleural based nodular densities identified along the left hemidiaphragm and left lower lobe. Started nivolumab treatment 09/2017 to June 2018. With positive response. 3. Bone scan 10/2017 showing increased uptake in the region of the greater trochanter of the proximal left femur compatible with a metastatic lesion, anterolateral right 8th rib and right medial femoral condyle lesions, deemed to likely represent metastatic lesions. Started denosumab treatment 11/2017. 4. CT chest, abdomen and pelvis, 06/2018, showing disease progression. Switched to Ipilimumab/Nivolumab 08/[address] chest, abdomen and pelvis 10/2018 showing further disease progression. 5. Switched to axitinib/pembrolizumab 12/2018 with subsequent imaging studies showing a positive response. Recent data: 10/29/20 CT abdomen Left greater trochanter/femoral neck lytic lesion Right femoral head lesion 12/22/20 Bone scan FINDINGS: Today's bone scan images demonstrate a normal distribution of skeletal tracer. The left kidney is surgically absent. There is osteoarthritic uptake in the acromioclavicular joints bilaterally, right greater than left. There is also osteoarthritic uptake in the medial compartment of each knee. These findings are unchanged. There is a new focus of increased uptake in the femoral neck or head neck junction region on the right hip. This is felt to correspond with the new radiolucency seen on recent CT study. It is suspicious for a new metastasis. The known metastatic focus previously observed in 2018 in the region the greater trochanter on the left does not show avid uptake today unchanged from the prior study. The only other new focus of increased uptake visible on today's bone scan is in the right mandible. This is nonspecific and could be periodontal disease. Radionuclide bone scan images are otherwise unremarkable. Interval History Reports minimal pain at this time. Has occasional left hip pain, starts in the low back radiates to the lateral left knee. Tolerating axitinib/keytruda well. Has had recent dental work. Appetite good and weight stable. No significant GI symptoms. Past Medical History: Arthritis DMII HTN NSCLC remission RCC Past Surgical History: Carpal tunnel right Tonsillectomy Family History: Father parathyroid cancer Social History: Non-smoker Does not drink Allergies / Meds Allergies: Coded Allergies: No Known Allergies (Unverified , 08/06/18) Home Meds Active Scripts Axitinib (Inlyta) 1 Mg Tablet, 2 TABS PO BID for 30 Days, #120 TAB 11 Refills TAKE 2 TABS BY MOUTH TWICE A DAY Prov:KODI ARAUZ MD FACP 07/26/20 Magnesium Oxide (Magox 400) 400 Mg Tablet, 400 MG PO ONCE for 30 Days, #30 TAB 1 Refill Prov:DAGOBERTO JACOBSON MD 09/03/18 Reported Medications Levothyroxine Sodium (Levothyroxine) 137 Mcg Capsule, 137 MCG PO, CAP 12/12/20 Covid-19 Vac,Ad26(Reflektion)/Pf (Reflektion Covid19 Vacc(Unapprov)) 0.5 Ml Vial, 2.5 ML IM, VIAL 09/19/20 Spironolactone (Spironolactone) 25 Mg Tablet, 25 MG PO DAILY 09/09/19 Fluticasone/Vilanterol (Breo Ellipta 100-25 Mcg INH) 1 Each Blst.w.dev 09/09/19 Minoxidil (Minoxidil) 2.5 Mg Tablet, 2.5 MG PO DAILY 09/09/19 Cetirizine HCl (24Hour Allergy) 10 Mg Tablet, 10 MG PO, TAB 08/17/19 Clonidine HCl (Clonidine HCl) 0.1 Mg Tab, 0.1 MG PO BID, TAB ONE TABLET IN THE MORNING AND TWO TABLETS AT NIGHT 07/18/18 Omeprazole (Omeprazole) 20 Mg Cap, 20 MG PO Q2D, CAP 02/28/18 Chlorthalidone (Chlorthalidone) 25 Mg Tab, 25 MG PO DAILY for 30 Days, #30 TAB 02/28/18 Insulin Glargine,Hum.rec.anlog (Lantus Solostar) 100 Unit/Ml Inj, 26 UNIT SC DAILY for 30 Days, #15 ML 01/31/18 Bisoprolol Fumarate (Bisoprolol Fumarate) 10 Mg Tab, 10 MG PO DAILY, TAB 09/24/17 Benazepril HCl (Benazepril HCl) 40 Mg Tab, 40 MG PO DAILY, TAB 09/24/17 Glimepiride (Glimepiride) 4 Mg Tab, 4 MG PO DAILY, TAB 6 mg (1.5 tab) once a day 09/24/17 Amlodipine Besylate (Amlodipine Besylate) 10 Mg Tab, 10 MG PO DAILY, TAB 03/28/15 Metformin HCl (Metformin HCl ER) 500 Mg Tab, 1000 MG PO BID, TAB 03/28/15 Review of Systems Constitutional: Denies: Chills, Fever, Fatigue, Weight Loss Eyes: Denies: Pain HEENT: Denies: Head Aches Skin: Denies: Rash Pulmonary: Denies: Dyspnea, Cough Cardiovascular: Denies: Chest Pain, Palpitations Gastrointestinal: Denies: Abdominal Pain, Diarrhea Genitourinary: Denies: Dysuria, Frequency Hematologic: Denies: Bruising Musculoskeletal: Reports: Leg pain; Denies: Neck pain, Back pain Neurological: Denies: Weakness, Numbness Psych: Reports: Mood Normal Vital Signs Wt 247 lbs T 97 P 67 RR 20 BP 156/76 O2 98% Pain 0 Fatigue 0 General Exam: Alert, Cooperative, No Acute Distress Eye Exam: PERRLA, EOMI ENT EXAM: Atraumatic Neck Exam: Supple Chest Exam: Clear to auscultation Heart Exam: Rate Normal Abdomen Exam: Soft; Negative: Tenderness Extremity Exam: Negative: Edema Skin Exam: Nl turgor and temperature Neuro Exam: Normal Gait, Normal Speech, Cranial Nerves 3-12 NL Psych Exam: Mental status NL Other Physical Findings Musculoskeletal: No spinal/paraspinal tenderness in the low back. No tenderness over hips/iliac/SI joints. Left knee non-tender medial condylar bony lesion ~ 4 cm Diagnostic and Laboratory Diagnostic Review Radiologic images, relevant labs and pathology reports were personally reviewed and discussed with Mr. Nash. Assessment and Plan Impression Mr. Nash is a 60 year old male with a history of stage IV RCC. He has had stable metastatic disease on axitinib/keytruda and xgeva, however, he had to discontinue xgeva due to pending dental work. He is referred by Dr. Arauz for consideration of palliative RT to the hips. Stage RCC stage IV Performance Status ECOG 0 Plan We had an extensive discussion with Mr. Nash regarding the diagnosis at hand and available therapeutic options. He is tolerating systemic therapy well. He has intermittent left low-back/leg pain which is most consistent with sciatica. I see that he does have evidence of degenerative arthritis in his spine. In addition he has arthritic distribution u ptake on his bone scan from today as well as left medial condyle lesion which seems a large osteophyte to me and not a metastasis. On his bone scan today he has active uptake in the right femoral head corresponding to the lytic lesion seen on CT from 10/29/20. On that CT he also had a larger lytic lesion in the left femoral neck/greater trochanter, which although quiescent on bone scan today, is certainly high risk based on location in a weight bearing area, and lytic in nature. Given that he has an active metastasis in the right hip and the high risk lesion in the left hip I recommended palliative RT to the BL hip lesions. The benefit of this would be arresting progression of the lesions, and promoting remineralization particularly of the left hip lesions, which although not avid on bone scan today appears a pure lytic lesion, and thus a bone scan is a poor correlate for activity. I would give 20 Gy in 5 fractions. These are low-volume well-lateralized lesions and so there is minimal side effect risk other than mild fatigue and skin reaction. He would have no GI toxicity. He also would not need to come off his systemic therapy. We discussed the logistics of receiving radiation therapy in detail including the need for a 1-time planning session. This can occur next week. After discussing the risks, benefits and alternatives to radiation therapy, Mr. Nash was amenable to pursuing radiotherapy. All questions were answered to the patient's satisfaction. We instructed the patient that if there were any questions,concerns or changes in clinical status in the interim to contact us. Recommendations Palliative RT to the BL hip lesions 20 Gy in 5 fractions Simulation next week Billing Statement Total time of [30] minutes was spent preparing for the visit [2], obtaining HPI [4], examining the patient [2], reviewing diagnostic tests [5], discussing management options [7], coordinating care [3], and writing this note [7]. RAYRAY STEINER MD Dec 22, 2020 15:45
== END ==
LOC: M ONCR 13:19
PROVIDERS: ATTEND General Practice
DX: C79.51 Secondary malignant neoplasm of bone (principal); E11.9 Type 2 diabetes mellitus without complications; I10 Essential (primary) hypertension; Z79.4 Long term (current) use of insulin; Z79.899 Other long term (current) drug therapy; Z85.528 Personal history of other malignant neoplasm of kidney; Z90.5 Acquired absence of kidney

== ENCOUNTER → 2021-01-04 | Outpatient (REF) | payer OTHER ==
[2021-01-04 14:05] LABS: CREATININE FOR GFR 1.48 MG/DL (0.70-1.30); GLOMERULAR FILTRATION RATE 51.3 (>49)
[2021-01-04 15:03] LABS: HEMOGLOBIN A1c 6.5 %
== END ==
LOC: M LAB REF 13:15
PROVIDERS: ATTEND Family Medicine
DX: E87.5 Hyperkalemia (principal); E11.49 Type 2 diabetes mellitus with other diabetic neurological complication

== ENCOUNTER → 2021-01-10 | Outpatient (RCR) | payer OTHER ==
[~2021-01-10] MED LIST changes: -BENA40TA5 PO; +BENA40TA84 PO; -BREO1INH; +BREO1INH INH; +CLON0.2T PO; +ECOT81TA5 PO; -LEVO500T3 PO; +LEVO500T4 PO; +TORS10TA3 PO
== END ==
LOC: M ONCR 12-29 09:18
PROVIDERS: ATTEND General Practice
DX: C79.51 Secondary malignant neoplasm of bone (principal)

== ENCOUNTER → 2021-02-20 | Outpatient (CLI) | payer OTHER ==
[~2021-02-20] MED LIST changes: +BENA40TA5 PO; -BENA40TA84 PO; +BREO1INH; -BREO1INH INH; -CLON0.2T PO; -ECOT81TA5 PO; +GASTROGRAFIN SOLUTION 30ML (Q9963) As Ordered ONE; +ISOVUE-370 76% 100ML VIAL As Ordered ONE; +LEVO500T3 PO; -LEVO500T4 PO; -TORS10TA3 PO
--- NOTE | 2021-02-20 16:57 | REP ---
INDICATION: F/U KIDNEY CA COMPARISON: 10/29/2020 TECHNIQUE: Axial contrast enhanced images from the thoracic inlet to the upper abdomen with coronal and sagittal reformations using 100 ml Isovue 370 intravenous contrast material. This CT examination was performed using the following dose reduction techniques: Automated exposure control, adjustment of mA and/or kv according to the patient's size, and use of iterative reconstruction technique. FINDINGS: Bilateral noncalcified metastatic lesions appears slightly increased in size from prior examination. Specifically, right upper lobe lesion now measures 12 mm diameter previously measuring 9 mm, and right lower lobe subpleural lesion measures 14 mm and previously measured 10 mm. Few wrist smaller scattered nodules and ground-glass non solid nodules are also identified. Minimal scattered chronic scarring and interstitial changes are appreciated. No pleural effusion. No pneumothorax. Tracheobronchial tree is patent. No significant axillary or hilar adenopathy is identified. Mediastinum demonstrates stable age-related changes to the thoracic aorta and heart/pericardium. No cardiomegaly or pericardial effusion. No thoracic aortic aneurysm or dissection. Pulmonary vasculature appears normal. Musculoskeletal structures are intact. IMPRESSION: Metastatic lesions slightly increased in size from prior examination. <Electronically signed by Isidro Prater > 02/20/21 [id number]
--- NOTE | 2021-02-20 17:03 | REP ---
INDICATION: F/U KIDNEY CA. COMPARISON: 10/29/2020 latest prior TECHNIQUE: Standard helical technique after the intravenous administration of 100 cc Isovue 370 FINDINGS: The liver, spleen, pancreas, adrenal glands, and right kidney are unchanged. There is compensatory hypertrophy of the right kidney.. The patient is status post left nephrectomy. The abdominal aorta and para-aortic regions are unchanged. No adenopathy has developed. There is no free fluid or free air. There is no evidence of a mass or adenopathy. There is cholelithiasis status quo. Bone window technique throughout the exam shows an unchanged left proximal femoral and right femoral head low density lesion. No new abnormal low-density lesions have developed. There is no significant change in appearance of the bowel loops or the mesenteries. IMPRESSION: There is no significant change from the prior exam. There is cholelithiasis status quo. There are low density osseous lesions which are stable as described above. Although the right femoral head osseous lesions stable compared to the latest prior to has increased significantly in size when compared to the 02/16/2020 exam. This needs to be correlated clinically with appropriate follow-up. <Electronically signed by Tejas Jim > 02/20/21 [id number]
== END ==
LOC: M RAD 14:57
PROVIDERS: ATTEND Internal Medicine Medical Oncology
DX: C64.9 Malignant neoplasm of unspecified kidney, except renal pelvis (principal)
CPT/HCPCS: 71260; 74177; Q9963; Q9967

== ENCOUNTER → 2021-03-02 | Outpatient (CLI) | payer OTHER ==
[~2021-03-02] MED LIST changes: -GASTROGRAFIN SOLUTION 30ML (Q9963) As Ordered ONE; -ISOVUE-370 76% 100ML VIAL As Ordered ONE
--- NOTE | 2021-03-02 16:36 | REP ---
INDICATION: UNSPECIFIED INJURY OF RIGHT FOOT, INITIAL ENCOUNTER. COMPARISON: 03/22/2017 TECHNIQUE: Four views FINDINGS: There are multiple old healed metatarsal fractures status quo. There is no acute fracture, dislocation, or subluxation. There is a small plantar calcaneal heel spur. IMPRESSION: Chronic changes <Electronically signed by Tejas Jim > 03/02/21 [id number]
== END ==
LOC: M PLAIMG 15:22 → M PLALAB 15:22
PROVIDERS: ATTEND Family Medicine
DX: S99.921A Unspecified injury of right foot, initial encounter (principal); W18.30XA Fall on same level, unspecified, initial encounter; Y92.009 Unspecified place in unspecified non-institutional (private) residence as the place of occurrence of the external cause

== ENCOUNTER → 2021-03-14 | Outpatient (REF) | payer OTHER ==
[~2021-03-14] MED LIST changes: +CLON0.2T PO
== END ==
LOC: M LAB REF 17:27
PROVIDERS: ATTEND Internal Medicine Nephrology
DX: E83.42 Hypomagnesemia (principal)

== ENCOUNTER → 2021-04-05 | Outpatient (CLI) | payer OTHER ==
--- NOTE | 2021-04-05 12:25 | REP ---
INDICATION: DECREASED RENAL FUNCTION COMPARISON: Dated 02/20/2021 TECHNIQUE: Real time barnes scale ultrasound examination using curved array transducer. FINDINGS: Right kidney is normal in appearance and measures 12.6 x 8.2 x 7.9 cm. No hydronephrosis, nephrolithiasis, cystic or renal mass lesion. Left kidney is not visualized. Bladder is appears normal. IMPRESSION: Normal right kidney. <Electronically signed by Isidro Prater > 04/05/21 [id number]
== END ==
LOC: M RAD 11:46
PROVIDERS: ATTEND Internal Medicine Medical Oncology
DX: N28.89 Other specified disorders of kidney and ureter (principal)

== ENCOUNTER → 2021-04-11 | Outpatient (CLI) | payer OTHER ==
[~2021-04-11] MED LIST changes: -BENA40TA5 PO; +BENA40TA84 PO; -BREO1INH; +BREO1INH INH; +D31000TA2 PO; +ECOT81TA5 PO; -LEVO500T3 PO; +LEVO500T4 PO; +TORS10TA3 PO
== END ==
LOC: M ONCR 11:00
PROVIDERS: ATTEND General Practice
DX: C79.51 Secondary malignant neoplasm of bone (principal); C64.2 Malignant neoplasm of left kidney, except renal pelvis; Z92.3 Personal history of irradiation; Z79.899 Other long term (current) drug therapy

== ENCOUNTER → 2021-05-31 | Outpatient (CLI) | payer OTHER ==
[~2021-05-31] MED LIST changes: -D31000TA2 PO
== END ==
LOC: M LABSMTC 09:42
PROVIDERS: ATTEND Family Medicine
DX: Z11.52 Encounter for screening for COVID-19 (principal)

== ENCOUNTER → 2021-06-12 | Outpatient (CLI) | payer OTHER | LOC: M RAD 09:22 | PROVIDERS: ATTEND Internal Medicine Medical Oncology | DX: C64.9 Malignant neoplasm of unspecified kidney, except renal pelvis (principal) | CPT/HCPCS: 71260; 74177; Q9963; Q9967 ==

== ENCOUNTER → 2021-08-01 | Outpatient (REF) | payer OTHER ==
[~2021-08-01] MED LIST changes: +VITA100093 PO
[2021-08-01 14:28] LABS: CHOLESTEROL RISK RATIO 5.514 (<5)
[2021-08-01 14:35] LABS: HEMOGLOBIN A1c 8.1 %
== END ==
LOC: M LAB REF 13:45
PROVIDERS: ATTEND Family Medicine
DX: E11.49 Type 2 diabetes mellitus with other diabetic neurological complication (principal)

== ENCOUNTER → 2021-08-02 | Outpatient (CLI) | payer OTHER | LOC: M PLALAB 14:11 | PROVIDERS: ATTEND Urology | DX: C64.2 Malignant neoplasm of left kidney, except renal pelvis (principal) ==

== ENCOUNTER → 2021-09-28 | Outpatient (CLI) | payer OTHER | LOC: M RAD 07:44 | PROVIDERS: ATTEND Specialist | DX: C64.1 Malignant neoplasm of right kidney, except renal pelvis (principal) | CPT/HCPCS: 78306; A9503 ==

== ENCOUNTER → 2021-10-06 | Outpatient (CLI) | payer OTHER ==
[~2021-10-06] MED LIST changes: +GASTROGRAFIN SOLUTION 30ML (Q9963) As Ordered ONE; +ISOVUE-370 76% 100ML VIAL As Ordered ONE
== END ==
LOC: M RAD 11:57
PROVIDERS: ATTEND Specialist
DX: R91.8 Other nonspecific abnormal finding of lung field (principal); C64.9 Malignant neoplasm of unspecified kidney, except renal pelvis
CPT/HCPCS: 71260; 74177; Q9963; Q9967

== ENCOUNTER → 2021-10-16 | Outpatient (CLI) | payer OTHER ==
[~2021-10-16] MED LIST changes: -GASTROGRAFIN SOLUTION 30ML (Q9963) As Ordered ONE; -ISOVUE-370 76% 100ML VIAL As Ordered ONE
== END ==
LOC: M CLY 14:35
PROVIDERS: ATTEND Physician Assistant
DX: M25.472 Effusion, left ankle (principal)

== ENCOUNTER → 2021-10-16 | Outpatient (REF) | payer OTHER ==
[2021-10-17 11:44] LABS: BASO # 0.1 10^3/uL (0.0-0.2); BASO % 0.6 % (0.0-1.0); EOS # 0.6 10^3/uL (0.0-0.5); EOS % 4.4 % (0.0-3.0); HEMATOCRIT 42.2 % (42.0-52.0); HEMOGLOBIN 14.1 g/dl (13.5-17.5); LYMPH # 1.4 10^3/uL (1.5-5.0); LYMPH % 11.1 % (24.0-44.0); MEAN CORPUSCULAR HEMOGLOBIN 28.8 pg (27.0-33.0); MEAN CORPUSCULAR HGB CONC 33.4 g/dl (32.0-36.5); MEAN CORPUSCULAR VOLUME 86.3 fl (80.0-96.0); MONO # 1.1 10^3/uL (0.0-0.8); MONO % 9.1 % (2.0-8.0); NEUTROPHILS # 9.3 10^3/uL (1.5-8.5); NEUTROPHILS % 74.1 % (36.0-66.0); PLATELET COUNT, AUTOMATED 336 10^3/uL (150-450); RED BLOOD COUNT 4.89 10^6/uL (4.30-6.10); WHITE BLOOD COUNT 12.6 10^3/uL (4.0-10.0)
[2021-10-17 12:23] LABS: ALBUMIN 2.9 GM/DL (3.2-5.2); BILIRUBIN,TOTAL 0.4 MG/DL (0.2-1.0); C REACTIVE PROTEIN QUANTITATIV 9.75 MG/DL (0.00-0.30); CALCIUM LEVEL 8.2 MG/DL (8.8-10.2); CREATININE FOR GFR 1.67 MG/DL (0.70-1.30); GLOMERULAR FILTRATION RATE 44.5 (>49); POTASSIUM SERUM 5.8 MEQ/L (3.5-5.1); TOTAL PROTEIN 7.3 GM/DL (6.4-8.2); URIC ACID 11.8 MG/DL (3.5-7.2)
[2021-10-17 12:39] LABS: ERYTHROCYTE SEDIMENTATION RATE 62 mm/hr (0-20)
== END ==
LOC: M SFHCCLAY 15:12
PROVIDERS: ATTEND Physician Assistant
DX: M25.472 Effusion, left ankle (principal)

== ENCOUNTER → 2021-11-28 | Outpatient (REF) | payer OTHER ==
[~2021-11-28] MED LIST changes: +AMOX500T2
[2021-11-28 18:07] LABS: HEMOGLOBIN A1c 7.4 %
== END ==
LOC: M SFHCCLAY 14:15
PROVIDERS: ATTEND Family Medicine
DX: E11.49 Type 2 diabetes mellitus with other diabetic neurological complication (principal)

== ENCOUNTER → 2021-12-05 | Outpatient (CLI) | payer OTHER | LOC: M PLAIMG 15:24 | PROVIDERS: ATTEND Internal Medicine Medical Oncology | DX: M54.2 Cervicalgia (principal) ==

== ENCOUNTER → 2022-01-09 | Outpatient (CLI) | payer OTHER ==
[~2022-01-09] MED LIST changes: +LEVO1TAB39 PO; -LEVO500T4 PO
== END ==
LOC: M RAD 12:54
PROVIDERS: ATTEND Internal Medicine Medical Oncology
DX: C64.9 Malignant neoplasm of unspecified kidney, except renal pelvis (principal)

== ENCOUNTER → 2022-03-30 | Outpatient (CLI) | payer OTHER ==
[~2022-03-30] MED LIST changes: +ALLO100T; +BENA1TAB23 PO; +MITI1CAP
== END ==
LOC: M RAD 11:05
PROVIDERS: ATTEND Internal Medicine Medical Oncology
DX: C64.1 Malignant neoplasm of right kidney, except renal pelvis (principal)

== ENCOUNTER → 2022-07-20 | Outpatient (CLI) | payer OTHER ==
[~2022-07-20] MED LIST changes: -ALLO100T; +ALLO100T PO; +CINNAMON PO; +GLIP5TAB20 PO
== END ==
LOC: M RAD 14:02
PROVIDERS: ATTEND Internal Medicine Medical Oncology
DX: C64.9 Malignant neoplasm of unspecified kidney, except renal pelvis (principal)

== ENCOUNTER 2022-09-25 14:16 | Inpatient (IN) | payer OTHER ==
[~2022-09-25] VITALS: Ht 172.7 cm; Wt 108.5 kg
[~2022-09-25 14:16] MED LIST changes: +SPIR-10
[2022-09-25] MEDS ORDERED: BENZONATATE 100MG CAPSULE PO ONE (14:45)
[2022-09-25] MEDS ORDERED: cefTRIAXone SOD 1 GM in D5W MINI-BAG PLUS 50 ML IV ONE (16:50)
[2022-09-25] MEDS ORDERED: NS 3,270 ML in IV 1 EA IV ONE (18:15)
[2022-09-25] MEDS ORDERED: ALBUTEROL SULFATE 2.5MG/0.5ML INH NEB SOLN NEB ONE (19:20)
[2022-09-25] MEDS ORDERED: AZITHROMYCIN INJ 500 MG, VIAL MATE ADAPTER 1 EACH in NS 250 ML IV ONE (19:40)
[2022-09-25] MEDS ORDERED: DEXTROSE 50% 50ML SYRINGE IV PRN (22:35)
[2022-09-25] MEDS ORDERED: GLUCAGON INJ 1MG VIAL SC PRN (22:35)
[2022-09-25] MEDS ORDERED: ALBUTEROL SULFATE 2.5MG/0.5ML INH NEB SOLN NEB PRN (22:35)
[2022-09-25] MEDS ORDERED: GLUCOSE 4GM CHEW TABLET PO PRN (22:35)
[2022-09-25 23:34] LABS: ABG BASE EXCESS -11.2 (-2.0-2.0); ABG HCO3 13.6 MMOL/L (22.0-26.0); ABG O2 SATURATION 92.4 % (95.0-99.0); ABG PARTIAL PRESSURE CO2 27.8 mmHg (35.0-45.0); ABG PARTIAL PRESSURE O2 64.1 mmHg (75.0-100.0); ABG STANDARD HCO3 15.7 MMOL/L. (22.0-26.0); ABG TOTAL CO2 14.4 MMOL/L (23.0-31.0); ABG pH (ARTERIAL) 7.306 UNITS (7.350-7.450)
[2022-09-26] MEDS ORDERED: TORS10TA3 PO (00:18)
[2022-09-26] MEDS ORDERED: SPIR-10 PO (00:18)
[2022-09-26] MEDS ORDERED: NASA1SPR (00:18)
[2022-09-26] MEDS ORDERED: ALLO100T PO (00:18)
[2022-09-26] MEDS ORDERED: AMLO1TAB25 PO (00:18)
[2022-09-26] MEDS ORDERED: AIRD1INH2 INH (00:18)
[2022-09-26] MEDS ORDERED: MAGN400T2 PO (00:18)
[2022-09-26] MEDS ORDERED: COLC0.6T47 PO (00:18)
[2022-09-26] MEDS ORDERED: ASPI-161 PO (00:18)
[2022-09-26] MEDS ORDERED: ALBU8.5H INH (00:18)
[2022-09-26] MEDS ORDERED: GLIP5TAB8 PO (00:18)
[2022-09-26] MEDS ORDERED: BENA40TA84 PO (00:18)
[2022-09-26] MEDS ORDERED: CHLO125TA PO (00:18)
[2022-09-26] MEDS ORDERED: CLON0.3T PO (00:18)
[2022-09-26] MEDS ORDERED: HOME MED LIST COMPLETE! XX SCH (00:20)
[2022-09-26 01:29] LABS: RSV AMPLIFICATION NEGATIVE (NEGATIVE)
[2022-09-26] MEDS ORDERED: NS 1,000 ML IV SCH ×3 (01:30→22:20)
[2022-09-26] MEDS: IPRATROPIUM 0.5MG/ALBUTEROL 2.5MG INH SOL UD 3ML (DUONEB) NEB SCH ×4 (01:37→18:57)
[2022-09-26] MEDS: LEVOTHYROXINE 137MCG TABLET (0.137MG) PO SCH (06:00)
[2022-09-26] MEDS ORDERED: HEPARIN SOD (PORCINE) 5000UNITS/ML 1ML VIAL/SYRINGE SC SCH (06:00)
[2022-09-26 06:10] LABS: CALCIUM LEVEL 7.7 MG/DL (8.3-10.6); CREATININE FOR GFR 2.49 MG/DL (0.70-1.30); GLOMERULAR FILTRATION RATE 27.9 (>49); POTASSIUM SERUM 4.6 MMOL/L (3.5-5.1)
[2022-09-26] MEDS: INSULIN LISPRO (NovoLOG) PER UNIT SC SCH ×3 (07:10→17:26)
[2022-09-26 07:12] LABS: HEMATOCRIT 35.7 % (42.0-52.0); HEMOGLOBIN 11.9 g/dl (13.5-17.5); MEAN CORPUSCULAR HEMOGLOBIN 29.5 pg (27.0-33.0); MEAN CORPUSCULAR HGB CONC 33.3 g/dl (32.0-36.5); MEAN CORPUSCULAR VOLUME 88.4 fl (80.0-96.0); PLATELET COUNT, AUTOMATED 320 10^3/uL (150-450); RED BLOOD COUNT 4.04 10^6/uL (4.30-6.10); WHITE BLOOD COUNT 25.7 10^3/uL (4.0-10.0)
[2022-09-26 07:33] VITALS: BP 111/53
[2022-09-26 08:10] LABS: ATYPICAL LYMPH 3 % (0-5); LYMPHOCYTES 2 % (16-44); MONOCYTES 6 % (0-5); NEUTROPHILS 82 % (28-66)
[2022-09-26 08:11] LABS: PLATELET ESTIMATE NORMAL (NORMAL)
[2022-09-26 08:56] VITALS: BP 119/58
[2022-09-26] MEDS ORDERED: PILL CUTTER 1 EACH XX PRN (10:55)
[2022-09-26] MEDS: CETIRIZINE (ZyrTEC) 10 MG TAB PO SCH (11:09)
[2022-09-26] MEDS: allopurinoL 100 MG TAB PO SCH (11:09)
[2022-09-26 12:14] VITALS: BP 116/57
[2022-09-26 12:31] LABS: HEMATOCRIT 32.6 % (42.0-52.0); HEMOGLOBIN 11.1 g/dl (13.5-17.5)
[2022-09-26] MEDS: cloNIDine 0.1MG TABLET PO SCH ×2 (12:50→20:15)
[2022-09-26] MEDS: bisoproloL fumarate 10 MG TAB PO SCH (12:50)
[2022-09-26 16:32] VITALS: BP 134/64
[2022-09-26] MEDS ORDERED: cefTRIAXone SOD 1 GM in D5W MINI-BAG PLUS 50 ML IV SCH (18:00)
[2022-09-26] MEDS ORDERED: AZITHROMYCIN INJ 500 MG, VIAL MATE ADAPTER 1 EACH in NS 250 ML IV SCH (20:00)
[2022-09-26 20:10] VITALS: BP 117/58
[2022-09-26] MEDS ORDERED: OMEPRAZOLE 20MG CAP PO SCH (21:00)
[2022-09-26] MEDS ORDERED: INSULIN LISPRO (NovoLOG) PER UNIT SC SCH (21:00)
[2022-09-26 23:57] VITALS: BP 108/60
[2022-09-27] MEDS: IPRATROPIUM 0.5MG/ALBUTEROL 2.5MG INH SOL UD 3ML (DUONEB) NEB SCH ×3 (01:36→12:47)
[2022-09-27 03:51] VITALS: BP 134/63
[2022-09-27] MEDS: LEVOTHYROXINE 137MCG TABLET (0.137MG) PO SCH (05:01)
[2022-09-27 07:37] LABS: BASO # 0.1 10^3/uL (0.0-0.2); BASO % 0.5 % (0.0-1.0); EOS # 0.5 10^3/uL (0.0-0.5); EOS % 2.5 % (0.0-3.0); HEMATOCRIT 34.9 % (42.0-52.0); HEMOGLOBIN 12.1 g/dl (13.5-17.5); LYMPH # 0.8 10^3/uL (1.5-5.0); LYMPH % 4.3 % (24.0-44.0); MEAN CORPUSCULAR HEMOGLOBIN 29.8 pg (27.0-33.0); MEAN CORPUSCULAR HGB CONC 34.7 g/dl (32.0-36.5); MONO # 1.2 10^3/uL (0.0-0.8); MONO % 6.3 % (2.0-8.0); NEUTROPHILS # 16.5 10^3/uL (1.5-8.5); NEUTROPHILS % 84.3 % (36.0-66.0); PLATELET COUNT, AUTOMATED 317 10^3/uL (150-450); RED BLOOD COUNT 4.06 10^6/uL (4.30-6.10); WHITE BLOOD COUNT 19.6 10^3/uL (4.0-10.0)
[2022-09-27 08:00] VITALS: BP 132/60
[2022-09-27 08:06] LABS: BILIRUBIN,TOTAL 0.3 MG/DL (0.3-1.2); CALCIUM LEVEL 7.5 MG/DL (8.3-10.6); CREATININE FOR GFR 1.65 MG/DL (0.70-1.30); GLOMERULAR FILTRATION RATE 44.9 (>49); MAGNESIUM LEVEL 1.2 MG/DL (1.8-2.4); POTASSIUM SERUM 4.2 MMOL/L (3.5-5.1); TOTAL PROTEIN 5.4 G/DL (5.7-8.2)
[2022-09-27] MEDS: allopurinoL 100 MG TAB PO SCH (08:13)
[2022-09-27] MEDS: bisoproloL fumarate 10 MG TAB PO SCH (08:13)
[2022-09-27 08:14] VITALS: BP 132/60
[2022-09-27] MEDS: INSULIN LISPRO (NovoLOG) PER UNIT SC SCH ×2 (08:14→11:57)
[2022-09-27] MEDS: cloNIDine 0.1MG TABLET PO SCH (08:14)
[2022-09-27] MEDS: CETIRIZINE (ZyrTEC) 10 MG TAB PO SCH (08:14)
[2022-09-27] MEDS ORDERED: MAG SULF 1GM/100ML (MAG RUN) 1 GM in IV 1 EA IV ONE (08:20)
[2022-09-27] MEDS: MAG SULF 1GM/100ML (MAG RUN) 1 GM in IV 1 EA IV SCH ×4 (08:58→11:56)
[2022-09-27] MEDS ORDERED: SODIUM CHLORIDE 0.9% INJ 10 ML SYR IV SCH (09:00)
[2022-09-27] MEDS ORDERED: SPIR-10 PO (09:42)
[2022-09-27] MEDS ORDERED: TORS10TA3 PO (09:42)
[2022-09-27] MEDS ORDERED: CEFD300C41 PO (10:15)
[2022-09-27] MEDS ORDERED: AZIT500T5 PO (10:15)
[2022-09-27 12:00] VITALS: BP 133/61
[2022-09-27] MEDS ORDERED: SODIUM CHLORIDE 0.9% INJ 10 ML SYR IV PRN (12:20)
[2022-09-27] MEDS ORDERED: MAGN400T35 PO (13:33)
[2022-09-27] MEDS ORDERED: MAGN400T2 PO (13:37)
== END 2022-09-27 14:33 | disposition home health service (06) | DRG 720 ==
LOC: M ED 14:16 → M ED INP 20:59 → ENRESERV 09-26 08:25 → M MS4PR 09-26 08:55
PROVIDERS: ADMIT Internal Medicine; ATTEND Internal Medicine
DX: A41.9 Sepsis, unspecified organism (principal); J96.21 Acute and chronic respiratory failure with hypoxia; I13.0 Hypertensive heart and chronic kidney disease with heart failure and stage 1 through stage 4 chronic kidney disease, or unspecified chronic kidney disease; N17.9 Acute kidney failure, unspecified; J18.9 Pneumonia, unspecified organism; C78.01 Secondary malignant neoplasm of right lung; I50.9 Heart failure, unspecified; E87.20 Acidosis, unspecified; N18.9 Chronic kidney disease, unspecified; E11.22 Type 2 diabetes mellitus with diabetic chronic kidney disease; E03.9 Hypothyroidism, unspecified; R04.2 Hemoptysis; K21.9 Gastro-esophageal reflux disease without esophagitis; R19.7 Diarrhea, unspecified; M10.9 Gout, unspecified; Z99.81 Dependence on supplemental oxygen; Z90.5 Acquired absence of kidney; Z85.528 Personal history of other malignant neoplasm of kidney; Z79.82 Long term (current) use of aspirin; Z79.890 Hormone replacement therapy; Z79.899 Other long term (current) drug therapy; Z79.84 Long term (current) use of oral hypoglycemic drugs

== ENCOUNTER → 2022-10-01 | Outpatient (CLI) | payer OTHER ==
[~2022-10-01] MED LIST changes: +AIRD1INH2 INH; +ALBU8.5H INH; +ASPI-161 PO; +AZIT500T5 PO; +CEFD300C41 PO; +CLON0.3T PO; +COLC0.6T47 PO; +GLIP5TAB8 PO; +MAGN400T2 PO; +MAGN400T35 PO; +NASA1SPR
[2022-10-01 12:01] LABS: BLOOD UREA NITROGEN 45 MG/DL (9-23); CALCIUM LEVEL 7.9 MG/DL (8.3-10.6); CARBON DIOXIDE LEVEL 23 MMOL/L (20-31); CHLORIDE LEVEL 104 MMOL/L (98-107); GLOMERULAR FILTRATION RATE > 60.0 (>49); GLUCOSE, FASTING 238 MG/DL (74-106); POTASSIUM SERUM 4.7 MMOL/L (3.5-5.1); SODIUM LEVEL 133 MMOL/L (136-145)
== END ==
LOC: M WUC 09:22
PROVIDERS: ATTEND Internal Medicine
DX: N17.0 Acute kidney failure with tubular necrosis (principal)

== ENCOUNTER → 2022-10-15 | Outpatient (CLI) | payer OTHER ==
[~2022-10-15] MED LIST changes: +LEVO150T7 PO; +NYST-38
== END ==
LOC: M WUC 11:51
PROVIDERS: ATTEND Family Medicine
DX: J18.9 Pneumonia, unspecified organism (principal)

== ENCOUNTER → 2022-10-30 | Outpatient (CLI) | payer OTHER | LOC: M ONCR 09:13 | PROVIDERS: ATTEND General Practice | DX: C78.02 Secondary malignant neoplasm of left lung (principal); C79.51 Secondary malignant neoplasm of bone; Z85.528 Personal history of other malignant neoplasm of kidney; Z79.620 Long term (current) use of immunosuppressive biologic; E11.9 Type 2 diabetes mellitus without complications; I10 Essential (primary) hypertension; M19.90 Unspecified osteoarthritis, unspecified site; Z79.51 Long term (current) use of inhaled steroids; Z79.82 Long term (current) use of aspirin; Z79.84 Long term (current) use of oral hypoglycemic drugs; Z79.890 Hormone replacement therapy; Z79.899 Other long term (current) drug therapy; Z80.8 Family history of malignant neoplasm of other organs or systems; Z90.5 Acquired absence of kidney; Z92.29 Personal history of other drug therapy ==

== ENCOUNTER → 2023-01-28 | Outpatient (REF) | payer MEDICARE, OTHER ==
[~2023-01-28] MED LIST changes: +LORA-1041 PO; -LORA-674 PO
[2023-01-29 12:02] LABS: FOLATE 10.8 NG/ML (>5.4)
[2023-01-29 12:31] LABS: HEMOGLOBIN A1c 5.9 % (4.0-6.0)
== END ==
LOC: M SFHCCLAY 11:37
PROVIDERS: ATTEND Nurse Practitioner Family
DX: D64.9 Anemia, unspecified (principal)

== ENCOUNTER → 2023-01-29 | Outpatient (CLI) | payer MEDICARE, OTHER | LOC: M CLY 10:26 | PROVIDERS: ATTEND Nurse Practitioner Family | DX: R06.02 Shortness of breath (principal); D64.9 Anemia, unspecified ==

== ENCOUNTER 2023-02-27 11:16 | Day surgery (SDC) | payer MEDICARE, OTHER ==
[~2023-02-27] VITALS: Ht 172.7 cm; Wt 107.0 kg
[~2023-02-27 11:16] MED LIST changes: +ARNU1INH INH; -CEFD300C41 PO; +CEFD300C42 PO; +GLIP5TAB17 PO; -GLIP5TAB8 PO; +INSULANT SC; +LEVO175T2 PO; +LIDOCAINE 2% 100MG/5ML SDV (FOR ANES.) As Ordered ONE; +NS 1,000 ML IV ONE; +SODI15SS PO; +TUMS500C PO; +fentaNYL 100 MCG/2 ML INJECTION As Ordered ONE; +propofoL 200 MG/20 ML VIAL As Ordered ONE
[2023-02-27 13:10] VITALS: TEMP 97.8
[2023-02-27 13:26] VITALS: BP 119/56; O2SAT 98
== END 2023-02-27 13:26 | disposition home or self-care (01) ==
LOC: M OPP 11:16
PROVIDERS: ATTEND Internal Medicine Gastroenterology
DX: K64.0 First degree hemorrhoids (principal); K57.30 Diverticulosis of large intestine without perforation or abscess without bleeding; D50.9 Iron deficiency anemia, unspecified; K63.89 Other specified diseases of intestine; D72.820 Lymphocytosis (symptomatic); K29.70 Gastritis, unspecified, without bleeding; K20.90 Esophagitis, unspecified without bleeding; Z79.4 Long term (current) use of insulin; Z79.52 Long term (current) use of systemic steroids; Z79.82 Long term (current) use of aspirin; Z79.890 Hormone replacement therapy; Z79.899 Other long term (current) drug therapy; E11.9 Type 2 diabetes mellitus without complications
CPT/HCPCS: 43239; 45378; 88305; J3010

== ENCOUNTER → 2023-03-04 | Outpatient (CLI) | payer MEDICARE, OTHER ==
[~2023-03-04] MED LIST changes: -LIDOCAINE 2% 100MG/5ML SDV (FOR ANES.) As Ordered ONE; -NS 1,000 ML IV ONE; -fentaNYL 100 MCG/2 ML INJECTION As Ordered ONE; -propofoL 200 MG/20 ML VIAL As Ordered ONE
== END ==
LOC: M PLAIMG 09:30
PROVIDERS: ATTEND Nurse Practitioner
DX: C64.1 Malignant neoplasm of right kidney, except renal pelvis (principal)

== ENCOUNTER → 2023-03-05 | Outpatient (CLI) | payer MEDICARE, OTHER | LOC: M WUC 12:37 | PROVIDERS: ATTEND Internal Medicine Gastroenterology | DX: D50.9 Iron deficiency anemia, unspecified (principal) ==

== ENCOUNTER → 2023-05-02 | Outpatient (REF) | payer MEDICARE, OTHER ==
[~2023-05-02] MED LIST changes: +CEFD1CAP9 PO; -CEFD300C42 PO
[2023-05-02 10:43] LABS: HEMOGLOBIN A1c 6.6 % (4.0-6.0)
== END ==
LOC: M LAB REF 09:49
PROVIDERS: ATTEND Family Medicine
DX: E11.49 Type 2 diabetes mellitus with other diabetic neurological complication (principal)

== ENCOUNTER → 2023-05-24 | Outpatient (CLI) | payer MEDICARE, OTHER ==
[~2023-05-24] MED LIST changes: +ISOVUE-370 76% 100ML VIAL ONE
== END ==
LOC: M PLAIMG 09:47
PROVIDERS: ATTEND Nurse Practitioner
DX: R91.1 Solitary pulmonary nodule (principal); R07.89 Other chest pain; R06.02 Shortness of breath
CPT/HCPCS: 71275; Q9967

== ENCOUNTER → 2023-05-29 | Outpatient (CLI) | payer MEDICARE, OTHER ==
[~2023-05-29] MED LIST changes: -ISOVUE-370 76% 100ML VIAL ONE
== END ==
LOC: M CARPUL 14:50
PROVIDERS: ATTEND Nurse Practitioner
DX: C64.9 Malignant neoplasm of unspecified kidney, except renal pelvis (principal); R06.02 Shortness of breath

== ENCOUNTER → 2023-08-07 | Outpatient (REF) | payer MEDICARE ==
[~2023-08-07] MED LIST changes: -ASPI-161 PO; +ASPI-615 PO
[2023-08-07 19:03] LABS: PERCENT SATURATION 7.4 % (19.7-50.0)
== END ==
LOC: M LAB REF 16:57
PROVIDERS: ATTEND Internal Medicine Nephrology
DX: E61.1 Iron deficiency (principal)

== ENCOUNTER → 2023-08-12 | Outpatient (CLI) | payer MEDICARE | LOC: M SOG 07:53 | PROVIDERS: ATTEND Physician Assistant | DX: M17.12 Unilateral primary osteoarthritis, left knee (principal) ==

== ENCOUNTER → 2023-08-12 | Outpatient (CLI) | payer MEDICARE | LOC: M RAD 16:03 | PROVIDERS: ATTEND Nurse Practitioner | DX: C64.9 Malignant neoplasm of unspecified kidney, except renal pelvis (principal); K80.80 Other cholelithiasis without obstruction ==

== ENCOUNTER → 2023-08-28 | Outpatient (REF) | payer MEDICARE | LOC: M SFHCCLAY 10:35 | PROVIDERS: ATTEND Family Medicine | DX: E11.49 Type 2 diabetes mellitus with other diabetic neurological complication (principal) ==

== ENCOUNTER 2023-08-30 12:02 | Outpatient (CLI) | payer MEDICARE ==
[~2023-08-30 12:02] MED LIST changes: +ALBUTEROL SULFATE 2.5MG/0.5ML INH NEB SOLN INH PRN; +EPINEPHrine INJ 1 MG/ML 1ML AMP IM PRN; +diphenhydrAMINE 50MG/ML VIAL IV PRN; +methylPREDNISolone 125MG 2ML VIAL IV PRN
[2023-08-30 12:25] VITALS: BP 177/78; O2SAT 100
[2023-08-30] MEDS ORDERED: NS 1,000 ML IV SCH (12:30)
[2023-08-30] MEDS: IRON SUCROSE 300 MG in NS 250 ML OVER 90 MIN. IV ONE (12:34)
== END 2023-08-30 14:15 | disposition home or self-care (01) ==
LOC: M INFU 12:02
PROVIDERS: ATTEND Internal Medicine Nephrology
DX: E61.1 Iron deficiency (principal)
CPT/HCPCS: 96365; 96366; J1756

== ENCOUNTER → 2023-09-05 | Outpatient (REF) | payer MEDICARE ==
[~2023-09-05] MED LIST changes: -ALBUTEROL SULFATE 2.5MG/0.5ML INH NEB SOLN INH PRN; -EPINEPHrine INJ 1 MG/ML 1ML AMP IM PRN; +IRON65TA2 PO; -diphenhydrAMINE 50MG/ML VIAL IV PRN; -methylPREDNISolone 125MG 2ML VIAL IV PRN
[2023-09-05 14:47] LABS: HEMOGLOBIN A1c 5.7 % (4.0-6.0)
== END ==
LOC: M LAB REF 13:15
PROVIDERS: ATTEND Family Medicine
DX: E11.49 Type 2 diabetes mellitus with other diabetic neurological complication (principal)

== ENCOUNTER → 2023-09-09 | Outpatient (CLI) | payer MEDICARE | LOC: M CLY 19:29 | PROVIDERS: ATTEND Family Medicine | DX: M25.552 Pain in left hip (principal) ==

== ENCOUNTER 2023-09-13 15:30 | Outpatient (CLI) | payer MEDICARE ==
[~2023-09-13] VITALS: Ht 172.7 cm; Wt 90.9 kg
[~2023-09-13 15:30] MED LIST changes: +ALBUTEROL SULFATE 2.5MG/0.5ML INH NEB SOLN INH PRN; +EPINEPHrine INJ 1 MG/ML 1ML AMP IM PRN; +NS 1,000 ML IV SCH; +diphenhydrAMINE 50MG/ML VIAL IV PRN; +methylPREDNISolone 125MG 2ML VIAL IV PRN
[2023-09-13 15:35] VITALS: BP 130/78; O2SAT 97
[2023-09-13] MEDS: IRON SUCROSE 300 MG in NS 250 ML OVER 90 MIN. IV ONE (15:39)
[2023-09-13 17:40] VITALS: BP 139/64; O2SAT 100
== END 2023-09-13 17:30 ==
LOC: M INFU 15:30
PROVIDERS: ATTEND Internal Medicine Nephrology
DX: E61.1 Iron deficiency (principal)
CPT/HCPCS: 96365; 96366; J1756

== ENCOUNTER → 2023-09-13 | Outpatient (CLI) | payer MEDICARE | LOC: M WUC 12:44 | PROVIDERS: ATTEND Family Medicine | DX: M25.552 Pain in left hip (principal) ==

== ENCOUNTER 2023-09-16 11:09 | Emergency (ER) | payer MEDICARE ==
[~2023-09-16] VITALS: Ht 172.7 cm; Wt 90.9 kg
[~2023-09-16 11:09] MED LIST changes: -ALBUTEROL SULFATE 2.5MG/0.5ML INH NEB SOLN INH PRN; -EPINEPHrine INJ 1 MG/ML 1ML AMP IM PRN; -NS 1,000 ML IV SCH; -diphenhydrAMINE 50MG/ML VIAL IV PRN; -methylPREDNISolone 125MG 2ML VIAL IV PRN
[2023-09-16 11:56] LABS: HEMOGLOBIN 9.4 g/dl (13.5-17.5); MEAN CORPUSCULAR HEMOGLOBIN 29.9 pg (27.0-33.0); MEAN CORPUSCULAR HGB CONC 32.4 g/dl (32.0-36.5); MEAN CORPUSCULAR VOLUME 92.4 fl (80.0-96.0); PLATELET COUNT, AUTOMATED 561 10^3/uL (150-450); RED BLOOD COUNT 3.14 10^6/uL (4.30-6.10); WHITE BLOOD COUNT 13.9 10^3/uL (4.0-10.0)
[2023-09-16] MEDS: ONDANSETRON 4MG 2ML VIAL IV ONE (12:02)
[2023-09-16] MEDS: NS 1,000 ML IV SCH (12:03)
[2023-09-16] MEDS: MORPHINE 4 MG/ML 1ML VIAL IV PRN (12:03)
[2023-09-16 12:25] LABS: BLOOD UREA NITROGEN 38 MG/DL (9-23); CALCIUM LEVEL 7.8 MG/DL (8.3-10.6); CARBON DIOXIDE LEVEL 19 MMOL/L (20-31); CHLORIDE LEVEL 107 MMOL/L (98-107); CREATININE FOR GFR 1.04 MG/DL (0.70-1.30); GLOMERULAR FILTRATION RATE > 60.0 (>49); GLUCOSE, FASTING 195 MG/DL (74-106); POTASSIUM SERUM 5.7 MMOL/L (3.5-5.1); SODIUM LEVEL 135 MMOL/L (136-145)
[2023-09-16] MEDS ORDERED: [UNRECOGNIZED DRUG - CODE] PO (12:29)
[2023-09-16] MEDS ORDERED: HOME MED LIST COMPLETE! XX SCH (12:30)
[2023-09-16 14:45] VITALS: BP 157/68; TEMP 98.3
[2023-09-16 15:09] VITALS: O2SAT 100
[2023-09-16] MEDS: fentaNYL 100 MCG/2 ML INJECTION IV PRN (15:09)
== END 2023-09-16 15:19 | disposition short-term general hospital (02) ==
LOC: EDBD 11:09 → M ED 11:09
DX: S72.92XA Unspecified fracture of left femur, initial encounter for closed fracture (principal); Y92.019 Unspecified place in single-family (private) house as the place of occurrence of the external cause; Y93.9 Activity, unspecified; Y99.9 Unspecified external cause status; I10 Essential (primary) hypertension; E78.5 Hyperlipidemia, unspecified; Z85.528 Personal history of other malignant neoplasm of kidney; Z79.51 Long term (current) use of inhaled steroids; Z79.1 Long term (current) use of non-steroidal anti-inflammatories (NSAID); Z79.84 Long term (current) use of oral hypoglycemic drugs; Z79.4 Long term (current) use of insulin; Z79.899 Other long term (current) drug therapy
CPT/HCPCS: 73552; 80048; 85027; 93041; 94760; 96361; 96374; 96375; 99285; J2405; J3010

== ENCOUNTER 2023-09-25 08:00 | Inpatient (IN) | payer MEDICARE ==
[~2023-09-25] VITALS: Ht 172.7 cm; Wt 91.0 kg
[2023-09-25 13:00] VITALS: BP 147/67; TEMP 96.6; O2SAT 100
[2023-09-25 14:00] VITALS: BP 142/68; TEMP 97.1; O2SAT 100
[2023-09-25] MEDS ORDERED: ALBUTEROL 90 MCG/ACT 8GM HFA INHALER INH PRN (14:10)
[2023-09-25] MEDS ORDERED: FLUTICASONE PROP 0.05% NASAL SPRAY 16 GM (FLONASE) NARES PRN (14:10)
[2023-09-25] MEDS ORDERED: CYCLOBENZAPRINE 5MG TABLET PO PRN (14:10)
[2023-09-25] MEDS ORDERED: BISACODYL 10MG SUPP PR PRN (14:10)
[2023-09-25] MEDS ORDERED: GLUCAGON INJ 1MG VIAL SC PRN (14:20)
[2023-09-25] MEDS ORDERED: GLUCOSE 4 GM CHEW PO PRN (14:20)
[2023-09-25] MEDS ORDERED: DEXTROSE 50% 50ML SYRINGE IV PRN (14:20)
[2023-09-25] MEDS ORDERED: DOCU100C16 PO (15:47)
[2023-09-25] MEDS ORDERED: ENOX40IN3 SC (15:47)
[2023-09-25] MEDS ORDERED: MELA3TAB30 PO (15:54)
[2023-09-25] MEDS ORDERED: SENN-186 PO (15:54)
[2023-09-25] MEDS ORDERED: POLY17PO18 PO (15:54)
[2023-09-25] MEDS ORDERED: PANT-23 PO (15:54)
[2023-09-25] MEDS: ACETAMINOPHEN 500 MG TAB PO SCH (16:00)
[2023-09-25] MEDS ORDERED: HOME MED LIST COMPLETE! XX SCH (16:05)
[2023-09-25] MEDS ORDERED: PILL CUTTER 1 EACH XX PRN (16:30)
[2023-09-25] MEDS: INSULIN LISPRO (NovoLOG) PER UNIT SC SCH ×2 (18:08→20:44)
[2023-09-25 20:00] VITALS: BP 160/71; TEMP 97; O2SAT 99
[2023-09-25] MEDS: DOCUSATE SODIUM 100MG CAPSULE PO SCH (20:42)
[2023-09-25] MEDS: MAGNESIUM OXIDE 400MG TAB (MAG-OX) PO SCH (20:42)
[2023-09-25] MEDS: SENNA 8.6 MG TAB (SENOKOT) PO SCH (20:42)
[2023-09-25] MEDS: SPIRONOLACTONE 25 MG TAB PO SCH (20:42)
[2023-09-25] MEDS: APIXABAN 2.5 MG TAB (ELIQUIS) PO SCH (20:42)
[2023-09-25] MEDS: RAMELTEON 8 MG TAB (ROZEREM) PO PRN (20:43)
[2023-09-25] MEDS: cloNIDine 0.1MG TABLET PO SCH (20:43)
[2023-09-25] MEDS: DICLOFENAC EPOLAMINE 1.3% PATCH TOP SCH (20:44)
[2023-09-25] MEDS: AXITINIB 1 MG PO SCH (20:45)
[2023-09-26] MEDS: LEVOTHYROXINE 150MCG TABLET (0.15MG) PO SCH (05:38)
[2023-09-26] MEDS: LEVOTHYROXINE 25MCG TABLET (0.025MG) PO SCH (05:39)
[2023-09-26 06:00] VITALS: BP 154/66; TEMP 96.9; O2SAT 100
[2023-09-26] MEDS: MIRALAX *UNIT DOSE* 17GM PACKET PO SCH (08:25)
[2023-09-26] MEDS: LIDOCAINE 5% (LIDODERM) PATCH TD SCH (08:26)
[2023-09-26] MEDS: FERROUS SULFATE 325MG TAB PO SCH (08:27)
[2023-09-26] MEDS: allopurinoL 100 MG TAB PO SCH (08:28)
[2023-09-26] MEDS: VITAMIN D 1,000 INTERNATIONAL UNITS TABLET PO SCH (08:28)
[2023-09-26] MEDS: TORSEMIDE 10 MG TABLET PO SCH (08:28)
[2023-09-26] MEDS: bisoproloL fumarate 10 MG TAB PO SCH (08:29)
[2023-09-26] MEDS: CETIRIZINE (ZyrTEC) 10 MG TAB PO SCH (08:29)
[2023-09-26] MEDS: LEVEMIR (INSULIN DETEMIR) 1 UNITS/0.01ML SC SCH (08:31)
[2023-09-26 08:32] LABS: HEMATOCRIT 31.3 % (42.0-52.0); MEAN CORPUSCULAR HEMOGLOBIN 30.2 pg (27.0-33.0); MEAN CORPUSCULAR HGB CONC 31.9 g/dl (32.0-36.5); MEAN CORPUSCULAR VOLUME 94.6 fl (80.0-96.0); PLATELET COUNT, AUTOMATED 802 10^3/uL (150-450); RED BLOOD COUNT 3.31 10^6/uL (4.30-6.10)
[2023-09-26] MEDS ORDERED: glipiZIDE (GLUCOTROL) 5 MG TAB PO SCH (09:00)
[2023-09-26 09:11] LABS: ALBUMIN 1.6 G/DL (3.2-5.2); ALKALINE PHOSPHATASE 237 U/L (46-116); ALT/SGPT 25 U/L (7.0-40); AST/SGOT 36 U/L (<34); BILIRUBIN,TOTAL 0.3 MG/DL (0.3-1.2); BLOOD UREA NITROGEN 21 MG/DL (9-23); CALCIUM LEVEL 8.4 MG/DL (8.3-10.6); CARBON DIOXIDE LEVEL 23 MMOL/L (20-31); CHLORIDE LEVEL 107 MMOL/L (98-107); CREATININE FOR GFR 1.08 MG/DL (0.70-1.30); GLOMERULAR FILTRATION RATE > 60.0 (>49); GLUCOSE, FASTING 86 MG/DL (74-106); POTASSIUM SERUM 5.4 MMOL/L (3.5-5.1); SODIUM LEVEL 136 MMOL/L (136-145); TOTAL PROTEIN 5.4 G/DL (5.7-8.2)
[2023-09-26] MEDS ORDERED: KETOCONAZOLE 2% TOP ONE (12:40)
[2023-09-26] MEDS: PATIROMER SORBITEX CALCIUM 8.4 GM POWDER PACKET (VELTASSA) PO ONE (12:44)
[2023-09-26 13:00] LABS: MAGNESIUM LEVEL 1.6 MG/DL (1.8-2.4)
[2023-09-26 14:00] VITALS: BP 130/72; TEMP 97.2; O2SAT 96
[2023-09-26 19:37] VITALS: BP 158/72; TEMP 97; O2SAT 99
[2023-09-27 05:30] VITALS: BP 158/72; TEMP 96.1; O2SAT 100
[2023-09-27 06:02] LABS: HEMOGLOBIN 9.8 g/dl (13.5-17.5); MEAN CORPUSCULAR HEMOGLOBIN 29.8 pg (27.0-33.0); MEAN CORPUSCULAR HGB CONC 31.6 g/dl (32.0-36.5); MEAN CORPUSCULAR VOLUME 94.2 fl (80.0-96.0); PLATELET COUNT, AUTOMATED 762 10^3/uL (150-450); RED BLOOD COUNT 3.29 10^6/uL (4.30-6.10); WHITE BLOOD COUNT 9.4 10^3/uL (4.0-10.0)
[2023-09-27 06:21] LABS: CALCIUM LEVEL 8.7 MG/DL (8.3-10.6); CREATININE FOR GFR 1.28 MG/DL (0.70-1.30); MAGNESIUM LEVEL 1.6 MG/DL (1.8-2.4); POTASSIUM SERUM 5.2 MMOL/L (3.5-5.1)
[2023-09-27] MEDS: LEVEMIR (INSULIN DETEMIR) 1 UNITS/0.01ML SC SCH (08:10)
[2023-09-27] MEDS: OMEPRAZOLE 20MG CAP PO SCH (08:11)
[2023-09-27] MEDS: TORSEMIDE 10 MG TABLET PO SCH (08:12)
[2023-09-27] MEDS: diphenhydrAMINE 25MG CAP PO PRN (08:20)
[2023-09-27] MEDS: PATIROMER SORBITEX CALCIUM 8.4 GM POWDER PACKET (VELTASSA) PO ONE (12:24)
[2023-09-27 14:00] VITALS: BP 132/62; TEMP 97; O2SAT 100
[2023-09-27] MEDS: MAGNESIUM OXIDE 400MG TAB (MAG-OX) PO SCH (17:20)
[2023-09-27 20:03] VITALS: BP 172/76; TEMP 97.2; O2SAT 100
[2023-09-27] MEDS: MAGNESIUM OXIDE 400MG TAB (MAG-OX) PO ONE (20:14)
[2023-09-27 22:23] VITALS: BP 147/63; O2SAT 100
[2023-09-28 06:06] VITALS: BP 154/78; TEMP 96.5; O2SAT 99
[2023-09-28 07:47] LABS: HEMATOCRIT 33.1 % (42.0-52.0); HEMOGLOBIN 10.5 g/dl (13.5-17.5); MEAN CORPUSCULAR HEMOGLOBIN 29.8 pg (27.0-33.0); MEAN CORPUSCULAR HGB CONC 31.7 g/dl (32.0-36.5); PLATELET COUNT, AUTOMATED 891 10^3/uL (150-450); RED BLOOD COUNT 3.52 10^6/uL (4.30-6.10); WHITE BLOOD COUNT 12.7 10^3/uL (4.0-10.0)
[2023-09-28 08:14] LABS: CREATININE FOR GFR 1.49 MG/DL (0.70-1.30); GLOMERULAR FILTRATION RATE 50.4 (>49); MAGNESIUM LEVEL 1.6 MG/DL (1.8-2.4); POTASSIUM SERUM 5.5 MMOL/L (3.5-5.1)
[2023-09-28] MEDS: DEXTROSE 50% 50ML SYRINGE IV STA (13:49)
[2023-09-28] MEDS: HumuLIN R (REGULAR) INSULIN (NovoLIN R) **100U/ML** PER UNIT IV STA (13:50)
[2023-09-28 14:00] VITALS: BP 145/68; TEMP 97.6; O2SAT 100
[2023-09-28] MEDS: SOD POLYSTYRENE SULFONATE SUSP 15GM 60ML UD PO ONE (14:30)
[2023-09-28] MEDS: diphenhydrAMINE 25MG CAP PO PRN (14:44)
[2023-09-28 19:07] LABS: CREATININE FOR GFR 1.64 MG/DL (0.70-1.30); GLOMERULAR FILTRATION RATE 45.1 (>49); POTASSIUM SERUM 5.7 MMOL/L (3.5-5.1)
[2023-09-28 20:08] VITALS: BP 135/70; TEMP 97.3; O2SAT 100
[2023-09-28] MEDS: CALCIUM GLUCONATE 1,000 MG in D5W MINI-BAG PLUS 100 ML IV ONE (20:56)
[2023-09-29 02:43] LABS: CALCIUM LEVEL 8.6 MG/DL (8.3-10.6); CREATININE FOR GFR 1.52 MG/DL (0.70-1.30); GLOMERULAR FILTRATION RATE 49.2 (>49); POTASSIUM SERUM 4.6 MMOL/L (3.5-5.1)
[2023-09-29 05:20] VITALS: BP 171/76; TEMP 97.6; O2SAT 99
[2023-09-29 05:24] VITALS: BP 148/68
[2023-09-29 07:30] LABS: HEMATOCRIT 33.1 % (42.0-52.0); HEMOGLOBIN 10.7 g/dl (13.5-17.5); MEAN CORPUSCULAR HEMOGLOBIN 30.5 pg (27.0-33.0); MEAN CORPUSCULAR HGB CONC 32.3 g/dl (32.0-36.5); MEAN CORPUSCULAR VOLUME 94.3 fl (80.0-96.0); RED BLOOD COUNT 3.51 10^6/uL (4.30-6.10)
[2023-09-29 07:31] LABS: PLATELET COUNT, AUTOMATED 1010 10^3/uL (150-450)
[2023-09-29 07:50] LABS: CALCIUM LEVEL 8.4 MG/DL (8.3-10.6); CREATININE FOR GFR 1.47 MG/DL (0.70-1.30); GLOMERULAR FILTRATION RATE 51.2 (>49); MAGNESIUM LEVEL 1.6 MG/DL (1.8-2.4); POTASSIUM SERUM 4.7 MMOL/L (3.5-5.1)
[2023-09-29 08:13] VITALS: BP 141/65
[2023-09-29 14:00] VITALS: BP 137/69; TEMP 97.6; O2SAT 100
[2023-09-29 20:07] VITALS: BP 142/65; TEMP 97.8; O2SAT 99
[2023-09-30 06:00] VITALS: BP 178/78; TEMP 96.2; O2SAT 98
[2023-09-30 06:05] VITALS: BP 146/64
[2023-09-30 07:25] LABS: HEMATOCRIT 32.1 % (42.0-52.0); HEMOGLOBIN 10.5 g/dl (13.5-17.5); MEAN CORPUSCULAR HEMOGLOBIN 30.7 pg (27.0-33.0); MEAN CORPUSCULAR HGB CONC 32.7 g/dl (32.0-36.5); MEAN CORPUSCULAR VOLUME 93.9 fl (80.0-96.0); PLATELET COUNT, AUTOMATED 930 10^3/uL (150-450); RED BLOOD COUNT 3.42 10^6/uL (4.30-6.10); WHITE BLOOD COUNT 13.7 10^3/uL (4.0-10.0)
[2023-09-30 07:50] LABS: BLOOD UREA NITROGEN 51 MG/DL (9-23); CALCIUM LEVEL 8.3 MG/DL (8.3-10.6); CARBON DIOXIDE LEVEL 25 MMOL/L (20-31); CHLORIDE LEVEL 101 MMOL/L (98-107); CREATININE FOR GFR 1.27 MG/DL (0.70-1.30); GLOMERULAR FILTRATION RATE > 60.0 (>49); GLUCOSE, FASTING 162 MG/DL (74-106); MAGNESIUM LEVEL 1.5 MG/DL (1.8-2.4); POTASSIUM SERUM 4.5 MMOL/L (3.5-5.1); SODIUM LEVEL 133 MMOL/L (136-145)
[2023-09-30] MEDS: MAGNESIUM OXIDE 400MG TAB (MAG-OX) PO SCH (08:38)
[2023-09-30] MEDS: oxyCODONE 5MG TAB PO PRN (08:38)
[2023-09-30 20:10] VITALS: BP 130/62; TEMP 96.8; O2SAT 96
[2023-10-01 05:38] VITALS: BP 180/77; TEMP 96.8; O2SAT 96
[2023-10-01 07:45] LABS: HEMATOCRIT 31.8 % (42.0-52.0); MEAN CORPUSCULAR HEMOGLOBIN 29.9 pg (27.0-33.0); MEAN CORPUSCULAR HGB CONC 31.4 g/dl (32.0-36.5); MEAN CORPUSCULAR VOLUME 94.9 fl (80.0-96.0); PLATELET COUNT, AUTOMATED 909 10^3/uL (150-450); RED BLOOD COUNT 3.35 10^6/uL (4.30-6.10); WHITE BLOOD COUNT 14.8 10^3/uL (4.0-10.0)
[2023-10-01 08:05] LABS: BLOOD UREA NITROGEN 60 MG/DL (9-23); CALCIUM LEVEL 8.5 MG/DL (8.3-10.6); CARBON DIOXIDE LEVEL 28 MMOL/L (20-31); CHLORIDE LEVEL 102 MMOL/L (98-107); CREATININE FOR GFR 1.23 MG/DL (0.70-1.30); GLOMERULAR FILTRATION RATE > 60.0 (>49); GLUCOSE, FASTING 172 MG/DL (74-106); MAGNESIUM LEVEL 1.7 MG/DL (1.8-2.4); POTASSIUM SERUM 4.5 MMOL/L (3.5-5.1); SODIUM LEVEL 135 MMOL/L (136-145)
[2023-10-01 13:52] LABS: ALBUMIN 1.7 G/DL (3.2-5.2); BILIRUBIN,DIRECT 0.1 MG/DL (<0.4); BILIRUBIN,TOTAL 0.2 MG/DL (0.3-1.2); TOTAL PROTEIN 4.9 G/DL (5.7-8.2)
[2023-10-01 14:00] VITALS: BP 136/64; TEMP 97.1; O2SAT 97
[2023-10-01 17:35] LABS: APPEARANCE, URINE CLEAR (CLEAR); BACTERIA, URINE AUTO NEGATIVE (NEGATIVE); BILIRUBIN, URINE AUTO NEGATIVE (NEGATIVE); BLOOD, URINE BLOOD NEGATIVE (NEGATIVE); COLOR, URINE STRAW (YELLOW); GLUCOSE, URINE (UA) AUTO NEGATIVE (NEGATIVE); KETONE, URINE AUTO NEGATIVE (NEGATIVE); LEUKOCYTE ESTERASE, URINE AUTO NEGATIVE (NEGATIVE); NITRITE, URINE AUTO NEGATIVE (NEGATIVE); PROTEIN, URINE AUTO 2+ mg/dL (NEGATIVE); RBC, URINE AUTO 0 /HPF (0-3); SQUAMOUS EPITHELIAL CELL UR AU 0 /HPF (0-6); UROBILINOGEN, URINE AUTO 0.2 mg/dL (0.0-2.0); WBC, URINE AUTO 0 /HPF (0-3)
[2023-10-01 19:50] VITALS: BP 106/58; TEMP 96.8; O2SAT 99
[2023-10-02 05:30] VITALS: TEMP 97; O2SAT 98
[2023-10-02 06:08] LABS: HEMATOCRIT 29.5 % (42.0-52.0); HEMOGLOBIN 9.4 g/dl (13.5-17.5); MEAN CORPUSCULAR HGB CONC 31.9 g/dl (32.0-36.5); MEAN CORPUSCULAR VOLUME 94.2 fl (80.0-96.0); PLATELET COUNT, AUTOMATED 826 10^3/uL (150-450); RED BLOOD COUNT 3.13 10^6/uL (4.30-6.10); WHITE BLOOD COUNT 13.1 10^3/uL (4.0-10.0)
[2023-10-02 06:11] LABS: BLOOD UREA NITROGEN 52 MG/DL (9-23); CALCIUM LEVEL 8.3 MG/DL (8.3-10.6); CARBON DIOXIDE LEVEL 28 MMOL/L (20-31); CHLORIDE LEVEL 106 MMOL/L (98-107); CPK CREATINE PHOSPHOKINASE 54 U/L (46-171); CREATININE FOR GFR 1.11 MG/DL (0.70-1.30); GLOMERULAR FILTRATION RATE > 60.0 (>49); GLUCOSE, FASTING 190 MG/DL (74-106); MAGNESIUM LEVEL 1.9 MG/DL (1.8-2.4); POTASSIUM SERUM 4.9 MMOL/L (3.5-5.1); SODIUM LEVEL 138 MMOL/L (136-145)
[2023-10-02] MEDS ORDERED: TORSEMIDE 10 MG TABLET PO SCH (09:00)
[2023-10-02] MEDS: KETOCONAZOLE 2% TOP ONE (11:32)
[2023-10-02 14:00] VITALS: BP 130/60; TEMP 97.2; O2SAT 100
[2023-10-02 20:04] VITALS: BP 152/69; TEMP 96.5; O2SAT 92
[2023-10-03 06:06] VITALS: BP 158/72; TEMP 97.8; O2SAT 97
[2023-10-03 06:36] LABS: HEMATOCRIT 29.6 % (42.0-52.0); HEMOGLOBIN 9.5 g/dl (13.5-17.5); MEAN CORPUSCULAR HEMOGLOBIN 30.7 pg (27.0-33.0); MEAN CORPUSCULAR HGB CONC 32.1 g/dl (32.0-36.5); MEAN CORPUSCULAR VOLUME 95.8 fl (80.0-96.0); PLATELET COUNT, AUTOMATED 756 10^3/uL (150-450); RED BLOOD COUNT 3.09 10^6/uL (4.30-6.10); WHITE BLOOD COUNT 10.8 10^3/uL (4.0-10.0)
[2023-10-03 07:05] LABS: BLOOD UREA NITROGEN 44 MG/DL (9-23); CALCIUM LEVEL 8.6 MG/DL (8.3-10.6); CARBON DIOXIDE LEVEL 28 MMOL/L (20-31); CHLORIDE LEVEL 103 MMOL/L (98-107); CREATININE FOR GFR 0.95 MG/DL (0.70-1.30); GLOMERULAR FILTRATION RATE > 60.0 (>49); GLUCOSE, FASTING 166 MG/DL (74-106); MAGNESIUM LEVEL 2.1 MG/DL (1.8-2.4); POTASSIUM SERUM 4.7 MMOL/L (3.5-5.1); SODIUM LEVEL 135 MMOL/L (136-145)
[2023-10-03] MEDS: MAGNESIUM OXIDE 400MG TAB (MAG-OX) PO SCH (12:05)
[2023-10-03 14:00] VITALS: BP 129/58; TEMP 97.6; O2SAT 100
[2023-10-03 20:01] VITALS: BP 165/72; TEMP 97; O2SAT 100
[2023-10-04 06:01] VITALS: BP 162/70; TEMP 96.3; O2SAT 100
[2023-10-04 07:58] VITALS: BP 162/70
[2023-10-04] MEDS: APIXABAN 2.5 MG TAB (ELIQUIS) PO SCH (07:58)
[2023-10-04 09:28] LABS: HEMATOCRIT 31.7 % (42.0-52.0); MEAN CORPUSCULAR HGB CONC 31.5 g/dl (32.0-36.5); MEAN CORPUSCULAR VOLUME 98.1 fl (80.0-96.0); PLATELET COUNT, AUTOMATED 991 10^3/uL (150-450); RED BLOOD COUNT 3.23 10^6/uL (4.30-6.10); WHITE BLOOD COUNT 15.4 10^3/uL (4.0-10.0)
[2023-10-04 09:55] LABS: BLOOD UREA NITROGEN 37 MG/DL (9-23); CALCIUM LEVEL 8.5 MG/DL (8.3-10.6); CARBON DIOXIDE LEVEL 24 MMOL/L (20-31); CHLORIDE LEVEL 100 MMOL/L (98-107); CREATININE FOR GFR 0.98 MG/DL (0.70-1.30); GLOMERULAR FILTRATION RATE > 60.0 (>49); GLUCOSE, FASTING 270 MG/DL (74-106); POTASSIUM SERUM 5.2 MMOL/L (3.5-5.1); SODIUM LEVEL 133 MMOL/L (136-145)
[2023-10-04] MEDS ORDERED: ELIQ2.5T PO (11:35)
[2023-10-04] MEDS ORDERED: VITAD1000T PO (11:35)
[2023-10-04] MEDS ORDERED: MAGN400T2 PO (11:35)
== END 2023-10-04 12:30 | disposition home health service (06) | DRG 560 ==
LOC: M PM&R 12:35
PROVIDERS: ADMIT Student in an Organized Health Care Education/Training Program; ATTEND Student in an Organized Health Care Education/Training Program
DX: M84.552D Pathological fracture in neoplastic disease, left femur, subsequent encounter for fracture with routine healing (principal); C64.2 Malignant neoplasm of left kidney, except renal pelvis; C78.00 Secondary malignant neoplasm of unspecified lung; J96.11 Chronic respiratory failure with hypoxia; C79.51 Secondary malignant neoplasm of bone; I50.32 Chronic diastolic (congestive) heart failure; I13.0 Hypertensive heart and chronic kidney disease with heart failure and stage 1 through stage 4 chronic kidney disease, or unspecified chronic kidney disease; D62 Acute posthemorrhagic anemia; E11.42 Type 2 diabetes mellitus with diabetic polyneuropathy; K90.0 Celiac disease; K21.9 Gastro-esophageal reflux disease without esophagitis; E03.9 Hypothyroidism, unspecified; M17.0 Bilateral primary osteoarthritis of knee; E78.5 Hyperlipidemia, unspecified; J45.909 Unspecified asthma, uncomplicated; M10.9 Gout, unspecified; N40.0 Benign prostatic hyperplasia without lower urinary tract symptoms; M54.50 Low back pain, unspecified; N18.9 Chronic kidney disease, unspecified; E11.22 Type 2 diabetes mellitus with diabetic chronic kidney disease; R49.0 Dysphonia; Z74.09 Other reduced mobility; Z74.1 Need for assistance with personal care; D50.9 Iron deficiency anemia, unspecified; D75.838 Other thrombocytosis; B36.9 Superficial mycosis, unspecified; L89.312 Pressure ulcer of right buttock, stage 2; L89.322 Pressure ulcer of left buttock, stage 2; K59.00 Constipation, unspecified; E87.5 Hyperkalemia; R21 Rash and other nonspecific skin eruption; E83.42 Hypomagnesemia; M25.572 Pain in left ankle and joints of left foot; Z79.69 Long term (current) use of other immunomodulators and immunosuppressants; Z79.4 Long term (current) use of insulin; Z79.899 Other long term (current) drug therapy; Z90.5 Acquired absence of kidney

== ENCOUNTER → 2023-10-14 | Outpatient (CLI) | payer MEDICARE ==
[~2023-10-14] MED LIST changes: +DOCU100C16 PO; +ELIQ2.5T PO; +ENOX40IN3 SC; +MELA3TAB30 PO; +PANT-23 PO; +POLY17PO18 PO; +SENN-186 PO; +VITAD1000T PO
[2023-10-14 12:53] LABS: BASO # 0.1 10^3/uL (0.0-0.2); BASO % 0.9 % (0.0-1.0); EOS # 0.9 10^3/uL (0.0-0.5); EOS % 7.1 % (0.0-3.0); HEMATOCRIT 28.1 % (42.0-52.0); HEMOGLOBIN 8.7 g/dl (13.5-17.5); LYMPH # 1.7 10^3/uL (1.5-5.0); MEAN CORPUSCULAR HEMOGLOBIN 30.3 pg (27.0-33.0); MEAN CORPUSCULAR VOLUME 97.9 fl (80.0-96.0); MONO # 0.8 10^3/uL (0.0-0.8); MONO % 6.5 % (2.0-8.0); NEUTROPHILS # 9.1 10^3/uL (1.5-8.5); NEUTROPHILS % 71.9 % (36.0-66.0); PLATELET COUNT, AUTOMATED 813 10^3/uL (150-450); RED BLOOD COUNT 2.87 10^6/uL (4.30-6.10); WHITE BLOOD COUNT 12.7 10^3/uL (4.0-10.0)
[2023-10-14 13:03] LABS: BLOOD UREA NITROGEN 22 MG/DL (9-23); CALCIUM LEVEL 8.8 MG/DL (8.3-10.6); CARBON DIOXIDE LEVEL 21 MMOL/L (20-31); CHLORIDE LEVEL 108 MMOL/L (98-107); CREATININE FOR GFR 0.84 MG/DL (0.70-1.30); GLOMERULAR FILTRATION RATE > 60.0 (>49); GLUCOSE, FASTING 144 MG/DL (74-106); POTASSIUM SERUM 4.8 MMOL/L (3.5-5.1); SODIUM LEVEL 137 MMOL/L (136-145)
== END ==
LOC: M LAB 11:41
PROVIDERS: ATTEND Family Medicine
DX: C64.2 Malignant neoplasm of left kidney, except renal pelvis (principal); C79.51 Secondary malignant neoplasm of bone

== ENCOUNTER → 2023-11-11 | Outpatient (REF) | payer MEDICARE ==
[2023-11-11 15:04] LABS: BASO # 0.1 10^3/uL (0.0-0.2); BASO % 0.6 % (0.0-1.0); EOS # 0.8 10^3/uL (0.0-0.5); EOS % 4.7 % (0.0-3.0); HEMATOCRIT 24.7 % (42.0-52.0); HEMOGLOBIN 7.5 g/dl (13.5-17.5); LYMPH # 2.3 10^3/uL (1.5-5.0); LYMPH % 14.5 % (24.0-44.0); MEAN CORPUSCULAR HEMOGLOBIN 30.6 pg (27.0-33.0); MEAN CORPUSCULAR HGB CONC 30.4 g/dl (32.0-36.5); MEAN CORPUSCULAR VOLUME 100.8 fl (80.0-96.0); MONO # 1.1 10^3/uL (0.0-0.8); MONO % 6.9 % (2.0-8.0); NEUTROPHILS # 11.5 10^3/uL (1.5-8.5); NEUTROPHILS % 71.6 % (36.0-66.0); PLATELET COUNT, AUTOMATED 925 10^3/uL (150-450); RED BLOOD COUNT 2.45 10^6/uL (4.30-6.10); WHITE BLOOD COUNT 16.1 10^3/uL (4.0-10.0)
[2023-11-11 15:16] LABS: ERYTHROCYTE SEDIMENTATION RATE 56 mm/hr (0-20)
[2023-11-11 15:22] LABS: ALBUMIN 1.8 G/DL (3.2-5.2); ALKALINE PHOSPHATASE 177 U/L (46-116); ALT/SGPT 27 U/L (7.0-40); AST/SGOT 28 U/L (<34); BILIRUBIN,TOTAL < 0.2 MG/DL (0.3-1.2); BLOOD UREA NITROGEN 27 MG/DL (9-23); CALCIUM LEVEL 8.1 MG/DL (8.3-10.6); CARBON DIOXIDE LEVEL 21 MMOL/L (20-31); CHLORIDE LEVEL 103 MMOL/L (98-107); CREATININE FOR GFR 0.87 MG/DL (0.70-1.30); GLOMERULAR FILTRATION RATE > 60.0 (>49); GLUCOSE, FASTING 158 MG/DL (74-106); POTASSIUM SERUM 5.2 MMOL/L (3.5-5.1); SODIUM LEVEL 135 MMOL/L (136-145); TOTAL PROTEIN 5.6 G/DL (5.7-8.2)
== END ==
LOC: M LAB REF 14:32
PROVIDERS: ATTEND Internal Medicine Infectious Disease
DX: M84.552A Pathological fracture in neoplastic disease, left femur, initial encounter for fracture (principal)

== ENCOUNTER 2023-11-18 18:06 | Observation (INO) | payer MEDICARE ==
[~2023-11-18] VITALS: Ht 172.7 cm; Wt 87.2 kg
[2023-11-18] VITALS (7 sets, daily range): BP systolic 144–188; BP diastolic 65–83; TEMP 96.9–98.2; O2SAT 98–100
[~2023-11-18 18:06] MED LIST changes: -OMEP-173 PO; -OMEP40CA4 PO
[2023-11-18 19:20] LABS: BASO # 0.1 10^3/uL (0.0-0.2); BASO % 0.5 % (0.0-1.0); EOS # 0.7 10^3/uL (0.0-0.5); EOS % 5.8 % (0.0-3.0); LYMPH # 1.6 10^3/uL (1.5-5.0); LYMPH % 14.3 % (24.0-44.0); MEAN CORPUSCULAR HEMOGLOBIN 31.1 pg (27.0-33.0); MEAN CORPUSCULAR VOLUME 103.8 fl (80.0-96.0); MONO # 0.5 10^3/uL (0.0-0.8); MONO % 4.8 % (2.0-8.0); NEUTROPHILS # 8.3 10^3/uL (1.5-8.5); NEUTROPHILS % 73.9 % (36.0-66.0); PLATELET COUNT, AUTOMATED 780 10^3/uL (150-450); RED BLOOD COUNT 2.12 10^6/uL (4.30-6.10); WHITE BLOOD COUNT 11.3 10^3/uL (4.0-10.0)
[2023-11-18 19:24] LABS: HEMOGLOBIN 6.6 g/dl (13.5-17.5)
[2023-11-18 19:40] LABS: CK-MB VALUE MASS < 1.0 NG/ML (<3.6); INR 1.1; PARTIAL THROMBOPLASTIN TIME 30.9 SECONDS (24.8-34.2); PROTHROMBIN TIME 13.9 SECONDS (12.5-14.5)
[2023-11-18 19:42] LABS: CPK CREATINE PHOSPHOKINASE 17 U/L (46-171); MB/CK RELATIVE INDEX 5.88 (< OR =4)
[2023-11-18 19:43] LABS: ALBUMIN 2.1 G/DL (3.2-5.2); ALKALINE PHOSPHATASE 172 U/L (46-116); ALT/SGPT 26 U/L (7.0-40); AST/SGOT 25 U/L (<34); BILIRUBIN,DIRECT < 0.1 MG/DL (<0.4); BILIRUBIN,TOTAL 0.2 MG/DL (0.3-1.2); BLOOD UREA NITROGEN 21 MG/DL (9-23); CALCIUM LEVEL 8.1 MG/DL (8.3-10.6); CARBON DIOXIDE LEVEL 24 MMOL/L (20-31); CHLORIDE LEVEL 106 MMOL/L (98-107); CREATININE FOR GFR 0.88 MG/DL (0.70-1.30); GLOMERULAR FILTRATION RATE > 60.0 (>49); GLUCOSE, FASTING 92 MG/DL (74-106); POTASSIUM SERUM 4.6 MMOL/L (3.5-5.1); SODIUM LEVEL 137 MMOL/L (136-145); TOTAL PROTEIN 5.7 G/DL (5.7-8.2)
[2023-11-18] MEDS ORDERED: MAGN400T2 PO (20:42)
[2023-11-18] MEDS ORDERED: OMEP-173 PO (20:42)
[2023-11-18] MEDS ORDERED: HOME MED LIST COMPLETE! XX SCH ×2 (20:45)
[2023-11-18] MEDS ORDERED: GLUCOSE 4 GM CHEW PO PRN (21:35)
[2023-11-18] MEDS ORDERED: DEXTROSE 50% 50ML SYRINGE IV PRN (21:35)
[2023-11-18] MEDS ORDERED: GLUCAGON INJ 1MG VIAL SC PRN (21:35)
[2023-11-18] MEDS: cloNIDine 0.1MG TABLET PO SCH (22:09)
[2023-11-19 01:51] VITALS: BP 169/76; TEMP 98; O2SAT 97
[2023-11-19] MEDS: PANTOPRAZOLE 40MG VIAL IV ONE (02:04)
[2023-11-19 03:19] LABS: HEMATOCRIT 30.1 % (42.0-52.0); MEAN CORPUSCULAR HEMOGLOBIN 29.5 pg (27.0-33.0); MEAN CORPUSCULAR HGB CONC 31.9 g/dl (32.0-36.5); MEAN CORPUSCULAR VOLUME 92.6 fl (80.0-96.0); RED BLOOD COUNT 3.25 10^6/uL (4.30-6.10); WHITE BLOOD COUNT 10.4 10^3/uL (4.0-10.0)
[2023-11-19 03:20] LABS: HEMOGLOBIN 9.6 g/dl (13.5-17.5); PLATELET COUNT, AUTOMATED 636 10^3/uL (150-450)
[2023-11-19 03:51] LABS: ALBUMIN 1.8 G/DL (3.2-5.2); ALKALINE PHOSPHATASE 159 U/L (46-116); ALT/SGPT 23 U/L (7.0-40); AST/SGOT 24 U/L (<34); BILIRUBIN,TOTAL 0.8 MG/DL (0.3-1.2); BLOOD UREA NITROGEN 20 MG/DL (9-23); CALCIUM LEVEL 8.1 MG/DL (8.3-10.6); CARBON DIOXIDE LEVEL 26 MMOL/L (20-31); CHLORIDE LEVEL 107 MMOL/L (98-107); CREATININE FOR GFR 0.89 MG/DL (0.70-1.30); GLOMERULAR FILTRATION RATE > 60.0 (>49); GLUCOSE, FASTING 81 MG/DL (74-106); SODIUM LEVEL 136 MMOL/L (136-145)
[2023-11-19] MEDS: LEVOTHYROXINE 25MCG TABLET (0.025MG) PO SCH (06:44)
[2023-11-19] MEDS: LEVOTHYROXINE 150MCG TABLET (0.15MG) PO SCH (06:45)
[2023-11-19] MEDS: INSULIN LISPRO (NovoLOG) PER UNIT SC SCH (07:23)
[2023-11-19] MEDS: allopurinoL 100 MG TAB PO SCH (07:39)
[2023-11-19] MEDS: FERROUS SULFATE 325MG TAB PO SCH (07:40)
[2023-11-19] MEDS: MAGNESIUM OXIDE 400MG TAB (MAG-OX) PO SCH (07:40)
[2023-11-19 07:41] VITALS: BP 155/70
[2023-11-19] MEDS: bisoproloL fumarate 10 MG TAB PO SCH (07:41)
[2023-11-19] MEDS ORDERED: PANTOPRAZOLE 40MG VIAL IV SCH ×2 (09:00→14:00)
[2023-11-19 09:01] LABS: FERRITIN 74.8 NG/ML (10.5-307.3); FOLATE 9.79 NG/ML (>5.4); IRON (FE) 122 UG/DL (65-175); PERCENT SATURATION 49.4 % (19.7-50.0); TOTAL IRON BINDING CAPACITY 247 UG/DL (250-425); VITAMIN B12 LEVEL 916 PG/ML (211-911)
[2023-11-19] MEDS ORDERED: OMEP40CA4 PO (09:04)
[2023-11-19 09:53] VITALS: BP 147/70; TEMP 97; O2SAT 98
[2023-11-19] MEDS ORDERED: INSULIN LISPRO (NovoLOG) PER UNIT SC SCH (21:00)
== END 2023-11-19 09:57 | disposition home or self-care (01) ==
LOC: EDBD 18:06 → M ED 18:06 → INTOOBSV 21:31 → M ED INP 21:31
PROVIDERS: ADMIT Family Medicine; ATTEND Family Medicine
DX: D64.9 Anemia, unspecified (principal); R19.5 Other fecal abnormalities; E11.40 Type 2 diabetes mellitus with diabetic neuropathy, unspecified; I13.0 Hypertensive heart and chronic kidney disease with heart failure and stage 1 through stage 4 chronic kidney disease, or unspecified chronic kidney disease; E03.9 Hypothyroidism, unspecified; M86.152 Other acute osteomyelitis, left femur; C78.00 Secondary malignant neoplasm of unspecified lung; C64.9 Malignant neoplasm of unspecified kidney, except renal pelvis; R06.02 Shortness of breath; K90.0 Celiac disease; K21.9 Gastro-esophageal reflux disease without esophagitis; E78.5 Hyperlipidemia, unspecified; M17.0 Bilateral primary osteoarthritis of knee; J45.909 Unspecified asthma, uncomplicated; J31.0 Chronic rhinitis; M10.9 Gout, unspecified; N40.0 Benign prostatic hyperplasia without lower urinary tract symptoms; M54.30 Sciatica, unspecified side; N18.9 Chronic kidney disease, unspecified; I50.9 Heart failure, unspecified; Z87.09 Personal history of other diseases of the respiratory system; R49.0 Dysphonia; Z91.018 Allergy to other foods; Z79.899 Other long term (current) drug therapy; Z79.890 Hormone replacement therapy; Z90.5 Acquired absence of kidney; Z90.89 Acquired absence of other organs; Z87.81 Personal history of (healed) traumatic fracture; Z98.890 Other specified postprocedural states; M84.552A Pathological fracture in neoplastic disease, left femur, initial encounter for fracture
CPT/HCPCS: 36415; 36430; 71045; 80048; 80053; 80076; 82550; 82553; 82607; 82728; 82746; 83550; 83880; 84484; 85025; 85027; 85610; 85652; 85730; 86140; 86850; 86900; 86901; 86920; 93005; 93041; 96374; 99285; G0378; J2470; P9016

== ENCOUNTER → 2023-11-18 | Outpatient (REF) | payer MEDICARE ==
[~2023-11-18] MED LIST changes: +OMEP-173 PO; +OMEP40CA4 PO
[2023-11-18 13:18] LABS: BASO # 0.1 10^3/uL (0.0-0.2); BASO % 0.5 % (0.0-1.0); EOS # 0.6 10^3/uL (0.0-0.5); EOS % 5.2 % (0.0-3.0); LYMPH # 1.1 10^3/uL (1.5-5.0); MEAN CORPUSCULAR HEMOGLOBIN 30.6 pg (27.0-33.0); MEAN CORPUSCULAR HGB CONC 29.3 g/dl (32.0-36.5); MEAN CORPUSCULAR VOLUME 104.4 fl (80.0-96.0); MONO # 0.6 10^3/uL (0.0-0.8); MONO % 5.5 % (2.0-8.0); NEUTROPHILS # 8.8 10^3/uL (1.5-8.5); NEUTROPHILS % 78.2 % (36.0-66.0); PLATELET COUNT, AUTOMATED 767 10^3/uL (150-450); RED BLOOD COUNT 2.06 10^6/uL (4.30-6.10); WHITE BLOOD COUNT 11.3 10^3/uL (4.0-10.0)
[2023-11-18 13:20] LABS: HEMOGLOBIN 6.3 g/dl (13.5-17.5)
[2023-11-18 13:21] LABS: HEMATOCRIT 21.5 % (42.0-52.0)
[2023-11-18 13:25] LABS: ERYTHROCYTE SEDIMENTATION RATE 47 mm/hr (0-20)
[2023-11-18 13:50] LABS: ALKALINE PHOSPHATASE 168 U/L (46-116); ALT/SGPT 26 U/L (7.0-40); AST/SGOT 26 U/L (<34); BILIRUBIN,TOTAL 0.2 MG/DL (0.3-1.2); BLOOD UREA NITROGEN 20 MG/DL (9-23); CARBON DIOXIDE LEVEL 24 MMOL/L (20-31); CHLORIDE LEVEL 107 MMOL/L (98-107); CREATININE FOR GFR 0.89 MG/DL (0.70-1.30); GLOMERULAR FILTRATION RATE > 60.0 (>49); GLUCOSE, FASTING 133 MG/DL (74-106); POTASSIUM SERUM 4.9 MMOL/L (3.5-5.1); SODIUM LEVEL 137 MMOL/L (136-145); TOTAL PROTEIN 5.5 G/DL (5.7-8.2)
== END ==
LOC: M LAB REF 12:05
PROVIDERS: ATTEND Internal Medicine Infectious Disease
DX: M84.552A Pathological fracture in neoplastic disease, left femur, initial encounter for fracture (principal)

== ENCOUNTER → 2023-11-21 | Outpatient (CLI) | payer MEDICARE ==
[~2023-11-21] MED LIST changes: +OMEP-173 PO; +OMEP40CA4 PO
[2023-11-21 11:00] LABS: HEMATOCRIT 29.9 % (42.0-52.0); HEMOGLOBIN 9.4 g/dl (13.5-17.5); MEAN CORPUSCULAR HEMOGLOBIN 29.4 pg (27.0-33.0); MEAN CORPUSCULAR HGB CONC 31.4 g/dl (32.0-36.5); MEAN CORPUSCULAR VOLUME 93.4 fl (80.0-96.0); PLATELET COUNT, AUTOMATED 709 10^3/uL (150-450); WHITE BLOOD COUNT 12.2 10^3/uL (4.0-10.0)
== END ==
LOC: M LAB 10:25
PROVIDERS: ATTEND Family Medicine
DX: K92.2 Gastrointestinal hemorrhage, unspecified (principal)

== ENCOUNTER → 2023-11-26 | Outpatient (REF) | payer MEDICARE ==
[2023-11-26 18:05] LABS: HEMATOCRIT 26.2 % (42.0-52.0); HEMOGLOBIN 7.9 g/dl (13.5-17.5); MEAN CORPUSCULAR HEMOGLOBIN 29.3 pg (27.0-33.0); MEAN CORPUSCULAR HGB CONC 30.2 g/dl (32.0-36.5); PLATELET COUNT, AUTOMATED 844 10^3/uL (150-450); WHITE BLOOD COUNT 13.4 10^3/uL (4.0-10.0)
[2023-11-26 18:34] LABS: PERCENT SATURATION 25.5 % (19.7-50.0)
== END ==
LOC: M SFHCCLAY 11:22
PROVIDERS: ATTEND Family Medicine
DX: C64.2 Malignant neoplasm of left kidney, except renal pelvis (principal); D50.8 Other iron deficiency anemias

== ENCOUNTER → 2023-12-02 | Outpatient (REF) | payer MEDICARE ==
[2023-12-02 17:43] LABS: HEMATOCRIT 24.9 % (42.0-52.0); HEMOGLOBIN 7.4 g/dl (13.5-17.5); MEAN CORPUSCULAR HEMOGLOBIN 30.1 pg (27.0-33.0); MEAN CORPUSCULAR HGB CONC 29.7 g/dl (32.0-36.5); MEAN CORPUSCULAR VOLUME 101.2 fl (80.0-96.0); PLATELET COUNT, AUTOMATED 922 10^3/uL (150-450); RED BLOOD COUNT 2.46 10^6/uL (4.30-6.10); WHITE BLOOD COUNT 10.7 10^3/uL (4.0-10.0)
== END ==
LOC: M SFHCCLAY 09:50
PROVIDERS: ATTEND Family Medicine
DX: D50.8 Other iron deficiency anemias (principal)

== ENCOUNTER 2023-12-03 15:59 | Outpatient (CLI) | payer MEDICARE ==
[2023-12-03 16:15] VITALS: BP 145/66; O2SAT 100
[2023-12-03 17:00] VITALS: BP 141/61; TEMP 98.5; O2SAT 97
[2023-12-03] MEDS: ACETAMINOPHEN TAB 650MG DOSE (2X325MG) PO ONE (17:05)
[2023-12-03 18:00] VITALS: BP 142/66; TEMP 97.6; O2SAT 100
[2023-12-03 19:06] VITALS: BP 138/78; TEMP 97.3; O2SAT 100
[2023-12-03] MEDS: SODIUM CHLORIDE 0.9% INJ 10 ML SYR IV PRN (19:06)
== END 2023-12-03 19:20 ==
LOC: M INFU 15:59
PROVIDERS: ATTEND Family Medicine
DX: D50.9 Iron deficiency anemia, unspecified (principal); Z91.018 Allergy to other foods
CPT/HCPCS: 36430; 86850; 86900; 86901; 86920; G0463; P9016

== ENCOUNTER → 2023-12-03 | Outpatient (REF) | payer MEDICARE | LOC: M LAB REF 13:19 | PROVIDERS: ATTEND Family Medicine | DX: Z53.9 Procedure and treatment not carried out, unspecified reason (principal) ==

== ENCOUNTER → 2023-12-12 | Outpatient (CLI) | payer MEDICARE ==
[~2023-12-12] MED LIST changes: +ISOVUE-370 76% 100ML VIAL As Ordered ONE
== END ==
LOC: M RAD 12:09
PROVIDERS: ATTEND Internal Medicine Medical Oncology
DX: C64.9 Malignant neoplasm of unspecified kidney, except renal pelvis (principal); R91.8 Other nonspecific abnormal finding of lung field; R59.0 Localized enlarged lymph nodes
CPT/HCPCS: 71260; 74177; Q9967

== ENCOUNTER → 2023-12-18 | Outpatient (CLI) | payer MEDICARE ==
[~2023-12-18] MED LIST changes: -ISOVUE-370 76% 100ML VIAL As Ordered ONE
== END ==
LOC: M LAB 12:01
PROVIDERS: ATTEND Family Medicine
DX: D50.9 Iron deficiency anemia, unspecified (principal)

== ENCOUNTER → 2023-12-19 | Outpatient (REF) | payer MEDICARE ==
[2023-12-19 13:03] LABS: HEMATOCRIT 21.3 % (42.0-52.0); MEAN CORPUSCULAR HEMOGLOBIN 32.6 pg (27.0-33.0); MEAN CORPUSCULAR HGB CONC 28.6 g/dl (32.0-36.5); MEAN CORPUSCULAR VOLUME 113.9 fl (80.0-96.0); PLATELET COUNT, AUTOMATED 820 10^3/uL (150-450); RED BLOOD COUNT 1.87 10^6/uL (4.30-6.10); WHITE BLOOD COUNT 11.5 10^3/uL (4.0-10.0)
[2023-12-19 13:24] LABS: HEMOGLOBIN 6.1 g/dl (13.5-17.5)
[2023-12-19 13:29] LABS: PERCENT SATURATION 31.2 % (19.7-50.0)
== END ==
LOC: M LAB REF 10:54
PROVIDERS: ATTEND Family Medicine
DX: D50.8 Other iron deficiency anemias (principal)

== ENCOUNTER 2023-12-20 09:07 | Outpatient (CLI) | payer MEDICARE ==
[2023-12-20] VITALS (7 sets, daily range): BP systolic 147–167; BP diastolic 65–82; TEMP 96.4–97.7; O2SAT 96–100
[~2023-12-20] VITALS: Ht 172.7 cm; Wt 88.0 kg
[2023-12-20] MEDS: SODIUM CHLORIDE 0.9% INJ 10 ML SYR IV SCH (13:59)
[2023-12-23] MEDS ORDERED: VITA-243 PO (14:48)
== END 2023-12-20 14:10 ==
LOC: M INFU 09:07
PROVIDERS: ATTEND Family Medicine
DX: D50.9 Iron deficiency anemia, unspecified (principal); Z91.018 Allergy to other foods
CPT/HCPCS: 36430; 86920; 96523; P9016

== ENCOUNTER → 2024-01-01 | Outpatient (CLI) | payer MEDICARE ==
[~2024-01-01] MED LIST changes: +VITA-243 PO
== END ==
LOC: M RAD 09:27
PROVIDERS: ATTEND Internal Medicine Medical Oncology
DX: C64.1 Malignant neoplasm of right kidney, except renal pelvis (principal)
CPT/HCPCS: 78306; A9503

== ENCOUNTER → 2024-01-01 | Outpatient (CLI) | payer MEDICARE | LOC: M RAD 09:32 | PROVIDERS: ATTEND Family Medicine | DX: M79.89 Other specified soft tissue disorders (principal) ==

== ENCOUNTER 2024-01-09 17:17 | Emergency (ER) | payer MEDICARE ==
[~2024-01-09] VITALS: Ht 172.7 cm; Wt 91.0 kg
[~2024-01-09 17:17] MED LIST changes: -AMOX500T PO; -AMOX875T2 PO; -CARA1TAB6 PO; -CETI10TA4 PO; -PANT40TA29 PO; -PROBCAP14 PO; -PROT1TAB2 PO; -SUCR1TAB56 PO
[2024-01-09 18:19] LABS: INR 1.17; PROTHROMBIN TIME 14.5 SECONDS (12.5-14.5)
[2024-01-09 18:25] LABS: ALBUMIN 1.4 G/DL (3.2-5.2); ALKALINE PHOSPHATASE 162 U/L (46-116); ALT/SGPT 30 U/L (7.0-40); AST/SGOT 35 U/L (<34); BILIRUBIN,DIRECT < 0.1 MG/DL (<0.4); BILIRUBIN,TOTAL < 0.2 MG/DL (0.3-1.2); TOTAL PROTEIN 5.2 G/DL (5.7-8.2)
[2024-01-09] MEDS: SUCRALFATE 1 GM TAB PO SCH (19:07)
[2024-01-09] MEDS ORDERED: CETI10TA4 PO (19:08)
[2024-01-09] MEDS: PANTOPRAZOLE 40MG VIAL IV ONE (19:08)
[2024-01-09] MEDS ORDERED: AMOX500T PO (19:08)
[2024-01-09] MEDS ORDERED: HOME MED LIST COMPLETE! XX SCH (19:10)
[2024-01-09] MEDS ORDERED: ALBUTEROL 90 MCG/ACT 8GM HFA INHALER INH PRN (19:10)
[2024-01-09] MEDS: ACETAMINOPHEN TAB 650MG DOSE (2X325MG) PO ONE (19:19)
[2024-01-09] MEDS: diphenhydrAMINE 25MG CAP PO ONE (19:20)
[2024-01-09] MEDS: LEVEMIR (INSULIN DETEMIR) 1 UNITS/0.01ML SC SCH (21:00)
[2024-01-09] MEDS: AMOXICILLIN 500 MG CAP PO SCH (21:00)
[2024-01-09] MEDS: cloNIDine 0.1MG TABLET PO SCH (21:19)
[2024-01-10 00:06] VITALS: BP 148/70; TEMP 97
[2024-01-10 00:47] LABS: HEMATOCRIT 22.3 % (42.0-52.0)
[2024-01-10 00:53] LABS: HEMOGLOBIN 6.8 g/dl (13.5-17.5)
[2024-01-10] MEDS ORDERED: PROT1TAB2 PO (06:03)
[2024-01-10] MEDS ORDERED: CARA1TAB6 PO (06:03)
[2024-01-10 07:33] LABS: BASO # 0.1 10^3/uL (0.0-0.2); BASO % 0.6 % (0.0-1.0); EOS # 0.3 10^3/uL (0.0-0.5); EOS % 4.2 % (0.0-3.0); HEMOGLOBIN 8.7 g/dl (13.5-17.5); MEAN CORPUSCULAR HEMOGLOBIN 31.5 pg (27.0-33.0); MEAN CORPUSCULAR HGB CONC 31.1 g/dl (32.0-36.5); MEAN CORPUSCULAR VOLUME 101.4 fl (80.0-96.0); MONO # 0.8 10^3/uL (0.0-0.8); MONO % 9.9 % (2.0-8.0); NEUTROPHILS # 5.9 10^3/uL (1.5-8.5); NEUTROPHILS % 72.3 % (36.0-66.0); RED BLOOD COUNT 2.76 10^6/uL (4.30-6.10); WHITE BLOOD COUNT 8.2 10^3/uL (4.0-10.0)
[2024-01-10 07:37] LABS: PLATELET COUNT, AUTOMATED 667 10^3/uL (150-450)
[2024-01-10] MEDS: PANTOPRAZOLE 40MG VIAL IV ONE (07:48)
[2024-01-10] MEDS: ASCORBIC ACID 500 MG TAB PO SCH (07:48)
[2024-01-10] MEDS: FERROUS SULFATE 325MG TAB PO SCH (07:48)
[2024-01-10] MEDS: SUCRALFATE 1 GM TAB PO ONE (07:49)
[2024-01-10] MEDS: MAGNESIUM OXIDE 400MG TAB (MAG-OX) PO SCH (07:49)
[2024-01-10] MEDS: VITAMIN D 1,000 INTERNATIONAL UNITS TABLET PO SCH (07:49)
[2024-01-10] MEDS: allopurinoL 100 MG TAB PO SCH (07:49)
[2024-01-10] MEDS: CETIRIZINE (ZyrTEC) 10 MG TAB PO SCH (07:49)
[2024-01-10] MEDS: glipiZIDE (GLUCOTROL) 5 MG TAB PO SCH (08:07)
[2024-01-10 08:43] LABS: BLOOD UREA NITROGEN 23 MG/DL (9-23); CALCIUM LEVEL 7.5 MG/DL (8.3-10.6); CARBON DIOXIDE LEVEL 24 MMOL/L (20-31); CHLORIDE LEVEL 107 MMOL/L (98-107); CREATININE FOR GFR 0.79 MG/DL (0.70-1.30); GLOMERULAR FILTRATION RATE > 60.0 (>49); GLUCOSE, FASTING 152 MG/DL (74-106); POTASSIUM SERUM 4.5 MMOL/L (3.5-5.1); SODIUM LEVEL 135 MMOL/L (136-145)
[2024-01-10 08:49] VITALS: BP 163/75
[2024-01-10] MEDS: bisoproloL fumarate 10 MG TAB PO SCH (08:49)
[2024-01-10] MEDS ORDERED: ASPIRIN 81MG ENTERIC TABLET PO SCH (09:00)
[2024-01-10] MEDS ORDERED: PANTOPRAZOLE 40MG TAB (PROTONIX) PO SCH (09:00)
[2024-01-10 10:15] VITALS: BP 142/65; TEMP 97.9; O2SAT 100
[2024-01-11] MEDS ORDERED: OMEPRAZOLE 20MG CAP PO SCH (09:00)
== END 2024-01-10 10:25 | disposition home or self-care (01) ==
LOC: M ED 17:17
DX: D64.9 Anemia, unspecified (principal); C64.2 Malignant neoplasm of left kidney, except renal pelvis; C78.00 Secondary malignant neoplasm of unspecified lung; C79.51 Secondary malignant neoplasm of bone; I10 Essential (primary) hypertension; E11.9 Type 2 diabetes mellitus without complications; E03.9 Hypothyroidism, unspecified; E78.5 Hyperlipidemia, unspecified; N18.9 Chronic kidney disease, unspecified; Z79.52 Long term (current) use of systemic steroids; Z79.2 Long term (current) use of antibiotics; Z79.4 Long term (current) use of insulin; Z79.899 Other long term (current) drug therapy; Z91.02 Food additives allergy status
CPT/HCPCS: 36430; 71046; 80048; 80076; 81001; 85014; 85018; 85025; 85610; 86850; 86900; 86901; 86920; 87486; 87581; 87633; 87798; 96374; 96376; 99285; J2470; P9016

== ENCOUNTER → 2024-01-09 | Outpatient (CLI) | payer MEDICARE ==
[~2024-01-09] MED LIST changes: +AMOX500T PO; +AMOX875T2 PO; +CARA1TAB6 PO; +CETI10TA4 PO; +PANT40TA29 PO; +PROBCAP14 PO; +PROT1TAB2 PO; +SUCR1TAB56 PO
[2024-01-09 15:11] LABS: BASO # 0.1 10^3/uL (0.0-0.2); BASO % 0.4 % (0.0-1.0); EOS # 0.3 10^3/uL (0.0-0.5); EOS % 2.3 % (0.0-3.0); HEMATOCRIT 21.7 % (42.0-52.0); LYMPH # 1.4 10^3/uL (1.5-5.0); LYMPH % 11.3 % (24.0-44.0); MEAN CORPUSCULAR HEMOGLOBIN 31.8 pg (27.0-33.0); MEAN CORPUSCULAR HGB CONC 28.6 g/dl (32.0-36.5); MEAN CORPUSCULAR VOLUME 111.3 fl (80.0-96.0); MONO % 7.7 % (2.0-8.0); NEUTROPHILS # 9.6 10^3/uL (1.5-8.5); NEUTROPHILS % 76.8 % (36.0-66.0); RED BLOOD COUNT 1.95 10^6/uL (4.30-6.10); WHITE BLOOD COUNT 12.5 10^3/uL (4.0-10.0)
[2024-01-09 15:14] LABS: HEMOGLOBIN 6.2 g/dl (13.5-17.5); PLATELET COUNT, AUTOMATED 1029 10^3/uL (150-450)
[2024-01-09 15:31] LABS: BLOOD UREA NITROGEN 29 MG/DL (9-23); CALCIUM LEVEL 8.4 MG/DL (8.3-10.6); CARBON DIOXIDE LEVEL 21 MMOL/L (20-31); CHLORIDE LEVEL 106 MMOL/L (98-107); CREATININE FOR GFR 0.83 MG/DL (0.70-1.30); GLOMERULAR FILTRATION RATE > 60.0 (>49); GLUCOSE, FASTING 223 MG/DL (74-106); IRON (FE) 32 UG/DL (65-175); PERCENT SATURATION 16.3 % (19.7-50.0); SODIUM LEVEL 135 MMOL/L (136-145); TOTAL IRON BINDING CAPACITY 196 UG/DL (250-425)
== END ==
LOC: M LAB 14:28
PROVIDERS: ATTEND Family Medicine
DX: D64.9 Anemia, unspecified (principal)

== ENCOUNTER 2024-01-18 00:53 | Inpatient (IN) | payer MEDICARE ==
[2024-01-18] VITALS (32 sets, daily range): BP systolic 82–167; BP diastolic 42–70; TEMP 97.3–97.7; O2SAT 95–100
[~2024-01-18] VITALS: Ht 172.7 cm; Wt 98.8 kg
[~2024-01-18 00:53] MED LIST changes: +AMOX500T PO; +CARA1TAB6 PO; +CETI10TA4 PO; +PROT1TAB2 PO
[2024-01-18 02:32] LABS: HEMATOCRIT 24.5 % (42.0-52.0); HEMOGLOBIN 7.5 g/dl (13.5-17.5); MEAN CORPUSCULAR HGB CONC 30.6 g/dl (32.0-36.5); MEAN CORPUSCULAR VOLUME 101.2 fl (80.0-96.0); PLATELET COUNT, AUTOMATED 862 10^3/uL (150-450); RED BLOOD COUNT 2.42 10^6/uL (4.30-6.10); WHITE BLOOD COUNT 24.8 10^3/uL (4.0-10.0)
[2024-01-18 02:51] LABS: LIPASE 13 U/L (12-53)
[2024-01-18 02:53] LABS: CPK CREATINE PHOSPHOKINASE 20 U/L (46-171)
[2024-01-18 02:54] LABS: ALBUMIN 1.2 G/DL (3.2-5.2); ALKALINE PHOSPHATASE 165 U/L (46-116); ALT/SGPT 24 U/L (7.0-40); AST/SGOT 33 U/L (<34); BILIRUBIN,DIRECT 0.1 MG/DL (<0.4); BILIRUBIN,TOTAL 0.2 MG/DL (0.3-1.2); BLOOD UREA NITROGEN 31 MG/DL (9-23); CALCIUM LEVEL 7.3 MG/DL (8.3-10.6); CARBON DIOXIDE LEVEL 21 MMOL/L (20-31); CHLORIDE LEVEL 106 MMOL/L (98-107); CK-MB VALUE MASS < 1.0 NG/ML (<3.6); CREATININE FOR GFR 1.31 MG/DL (0.70-1.30); GLOMERULAR FILTRATION RATE 58.5 (>49); GLUCOSE, FASTING 126 MG/DL (74-106); POTASSIUM SERUM 4.4 MMOL/L (3.5-5.1); SODIUM LEVEL 135 MMOL/L (136-145); TOTAL PROTEIN 4.9 G/DL (5.7-8.2)
[2024-01-18 03:29] LABS: ANISOCYTOSIS 1+; EOSINOPHILS 1 % (0-3); HYPOCHROMASIA 1+; MONOCYTES 4 % (0-5); NEUTROPHILS 84 % (28-66); PLATELET ESTIMATE INCREASED (NORMAL)
[2024-01-18] MEDS ORDERED: MORPHINE 4 MG/ML 1ML VIAL IV PRN (04:55)
[2024-01-18] MEDS ORDERED: ISOVUE-370 76% 100ML VIAL As Ordered ONE (05:00)
[2024-01-18] MEDS: HYDROMORPHONE HCL 0.5 MG/ 0.5 ML SYRINGE IV PRN (05:18)
[2024-01-18] MEDS: ONDANSETRON 4MG 2ML VIAL IV ONE (05:18)
[2024-01-18] MEDS: NS 1,000 ML IV ONE (05:18)
[2024-01-18] MEDS: NS 2,800 ML in IV 1 EA IV ONE (05:30)
[2024-01-18] MEDS: PIPERACILLIN/TAZOBACTAM SOD 4.5 GM in D5W MINI-BAG PLUS 50 ML IV ONE (06:18)
[2024-01-18] MEDS ORDERED: PANT40TA29 PO (06:33)
[2024-01-18] MEDS ORDERED: SUCR1TAB56 PO (06:33)
[2024-01-18] MEDS ORDERED: HOME MED LIST COMPLETE! XX SCH (06:35)
[2024-01-18 08:20] LABS: CPK CREATINE PHOSPHOKINASE 19 U/L (46-171)
[2024-01-18 08:21] LABS: CK-MB VALUE MASS < 1.0 NG/ML (<3.6); MB/CK RELATIVE INDEX 5.26 (< OR =4)
[2024-01-18] MEDS ORDERED: fentaNYL 100 MCG/2 ML INJECTION IV PRN (08:30)
[2024-01-18] MEDS ORDERED: ONDANSETRON 4MG 2ML VIAL IV PRN (08:30)
[2024-01-18] MEDS ORDERED: HYDROMORPHONE HCL 0.5 MG/ 0.5 ML SYRINGE IV PRN (08:30)
[2024-01-18] MEDS ORDERED: oxyCODONE 5MG TAB PO PRN (08:30)
[2024-01-18] MEDS ORDERED: MEPERIDINE 25 MG/ML 1ML VIAL IV PRN (08:30)
[2024-01-18] MEDS ORDERED: ETOMIDATE INJ 20MG/10ML VIAL As Ordered ONE (08:35)
[2024-01-18] MEDS ORDERED: fentaNYL 100 MCG/2 ML INJECTION As Ordered ONE (08:35)
[2024-01-18] MEDS ORDERED: ROCURONIUM BROMIDE 50MG/5ML VIAL As Ordered ONE (08:35)
[2024-01-18] MEDS ORDERED: ONDANSETRON 4MG 2ML VIAL As Ordered ONE (08:35)
[2024-01-18] MEDS ORDERED: LIDOCAINE 2% 100MG/5ML SDV (FOR ANES.) As Ordered ONE (08:35)
[2024-01-18] MEDS ORDERED: propofoL 200 MG/20 ML VIAL As Ordered ONE (08:35)
[2024-01-18] MEDS ORDERED: PHENYLEPHRINE 10MG/ML 1ML VIAL As Ordered ONE (08:35)
[2024-01-18] MEDS ORDERED: MIDAZOLAM INJ 2MG/2ML VIAL As Ordered ONE (08:35)
[2024-01-18] MEDS ORDERED: SUCCINYLCHOLINE 100MG/5ML SYRINGE As Ordered ONE (08:36)
[2024-01-18] MEDS ORDERED: ACETAMINOPHEN 1000MG 100ML IV BAG As Ordered ONE (08:55)
[2024-01-18] MEDS: allopurinoL 100 MG TAB PO SCH (09:00)
[2024-01-18] MEDS: PANTOPRAZOLE 40MG TAB (PROTONIX) PO SCH (09:00)
[2024-01-18] MEDS: glipiZIDE (GLUCOTROL) 5 MG TAB PO SCH (09:00)
[2024-01-18] MEDS ORDERED: HYDROmorphone HCL 2MG/ML 1ML VIAL As Ordered ONE (09:00)
[2024-01-18] MEDS: NS 1,000 ML IV SCH (10:50)
[2024-01-18] MEDS: LEVOTHYROXINE 75MCG TABLET (0.075MG) PO SCH (11:00)
[2024-01-18] MEDS: LEVOTHYROXINE 100MCG TABLET (0.1MG) PO SCH (11:00)
[2024-01-18] MEDS: bisoproloL fumarate 10 MG TAB PO SCH (11:22)
[2024-01-18] MEDS: LEVEMIR (INSULIN DETEMIR) 1 UNITS/0.01ML SC SCH (11:23)
[2024-01-18] MEDS: cloNIDine 0.1MG TABLET PO SCH (11:42)
[2024-01-18 11:49] LABS: BASO % 0.1 % (0.0-1.0); HEMATOCRIT 36.7 % (42.0-52.0); LYMPH # 0.4 10^3/uL (1.5-5.0); LYMPH % 2.2 % (24.0-44.0); MEAN CORPUSCULAR HEMOGLOBIN 30.2 pg (27.0-33.0); MEAN CORPUSCULAR HGB CONC 31.3 g/dl (32.0-36.5); MEAN CORPUSCULAR VOLUME 96.3 fl (80.0-96.0); MONO # 0.4 10^3/uL (0.0-0.8); MONO % 2.3 % (2.0-8.0); NEUTROPHILS # 16.1 10^3/uL (1.5-8.5); NEUTROPHILS % 95.2 % (36.0-66.0); PLATELET COUNT, AUTOMATED 808 10^3/uL (150-450); RED BLOOD COUNT 3.81 10^6/uL (4.30-6.10); WHITE BLOOD COUNT 16.9 10^3/uL (4.0-10.0)
[2024-01-18 12:03] LABS: HEMOGLOBIN 11.5 g/dl (13.5-17.5)
[2024-01-18 12:20] LABS: ALBUMIN 1.2 G/DL (3.2-5.2); ALKALINE PHOSPHATASE 168 U/L (46-116); ALT/SGPT 23 U/L (7.0-40); AST/SGOT 37 U/L (<34); BILIRUBIN,TOTAL 1.1 MG/DL (0.3-1.2); BLOOD UREA NITROGEN 30 MG/DL (9-23); CALCIUM LEVEL 7.5 MG/DL (8.3-10.6); CARBON DIOXIDE LEVEL 20 MMOL/L (20-31); CHLORIDE LEVEL 108 MMOL/L (98-107); CREATININE FOR GFR 1.25 MG/DL (0.70-1.30); GLOMERULAR FILTRATION RATE > 60.0 (>49); GLUCOSE, FASTING 185 MG/DL (74-106); SODIUM LEVEL 136 MMOL/L (136-145); TOTAL PROTEIN 5.1 G/DL (5.7-8.2)
[2024-01-18] MEDS: PIPERACILLIN/TAZOBACTAM SOD 3.375 GM in D5W MINI-BAG PLUS 50 ML IV SCH (13:03)
[2024-01-18] MEDS: ENOXAPARIN 40MG/0.4ML SYRINGE (J1650 PER 10MG) SC SCH (13:03)
[2024-01-19] VITALS: BP 162/71; TEMP 97.2; O2SAT 93
[2024-01-19] MEDS: KETOROLAC 30 MG/ML 1ML VIAL IV PRN (00:56)
[2024-01-19 02:11] VITALS: BP 123/60
[2024-01-19 04:00] VITALS: BP 154/67; TEMP 97.1; O2SAT 97
[2024-01-19 04:28] LABS: BASO % 0.1 % (0.0-1.0); EOS % 0.1 % (0.0-3.0); HEMATOCRIT 30.4 % (42.0-52.0); HEMOGLOBIN 9.6 g/dl (13.5-17.5); LYMPH # 0.6 10^3/uL (1.5-5.0); LYMPH % 4.5 % (24.0-44.0); MEAN CORPUSCULAR HEMOGLOBIN 30.4 pg (27.0-33.0); MEAN CORPUSCULAR HGB CONC 31.6 g/dl (32.0-36.5); MEAN CORPUSCULAR VOLUME 96.2 fl (80.0-96.0); MONO # 0.8 10^3/uL (0.0-0.8); MONO % 5.6 % (2.0-8.0); NEUTROPHILS # 12.5 10^3/uL (1.5-8.5); NEUTROPHILS % 89.3 % (36.0-66.0); PLATELET COUNT, AUTOMATED 742 10^3/uL (150-450); RED BLOOD COUNT 3.16 10^6/uL (4.30-6.10)
[2024-01-19 05:10] LABS: BILIRUBIN,TOTAL 0.4 MG/DL (0.3-1.2); CALCIUM LEVEL 6.6 MG/DL (8.3-10.6); CREATININE FOR GFR 1.42 MG/DL (0.70-1.30); GLOMERULAR FILTRATION RATE 53.3 (>49); TOTAL PROTEIN 4.3 G/DL (5.7-8.2)
[2024-01-19] MEDS ORDERED: LR 1,000 ML IV ONE (07:20)
[2024-01-19 08:00] VITALS: BP 161/72; TEMP 97.4; O2SAT 97
[2024-01-19 11:20] VITALS: BP 114/66; TEMP 97.3; O2SAT 90
[2024-01-19] MEDS: SODIUM CHLORIDE 0.9% INJ 10 ML SYR IV PRN (14:10)
[2024-01-19] MEDS ORDERED: GLUCAGON INJ 1MG VIAL SC PRN (16:00)
[2024-01-19] MEDS ORDERED: DEXTROSE 50% 50ML SYRINGE IV PRN (16:00)
[2024-01-19] MEDS: INSULIN LISPRO (NovoLOG) PER UNIT SC SCH ×2 (16:53→21:00)
[2024-01-19 20:48] VITALS: BP 117/64; TEMP 97.5; O2SAT 98
[2024-01-20 03:31] VITALS: BP 121/63; TEMP 97.7; O2SAT 94
[2024-01-20 05:10] LABS: HEMATOCRIT 29.3 % (42.0-52.0); HEMOGLOBIN 9.2 g/dl (13.5-17.5); MEAN CORPUSCULAR HEMOGLOBIN 30.7 pg (27.0-33.0); MEAN CORPUSCULAR HGB CONC 31.4 g/dl (32.0-36.5); MEAN CORPUSCULAR VOLUME 97.7 fl (80.0-96.0); PLATELET COUNT, AUTOMATED 652 10^3/uL (150-450); WHITE BLOOD COUNT 12.2 10^3/uL (4.0-10.0)
[2024-01-20 05:31] LABS: ALBUMIN 0.9 G/DL (3.2-5.2); BILIRUBIN,TOTAL 0.2 MG/DL (0.3-1.2); CALCIUM LEVEL 6.8 MG/DL (8.3-10.6); CREATININE FOR GFR 1.38 MG/DL (0.70-1.30); GLOMERULAR FILTRATION RATE 54.9 (>49); POTASSIUM SERUM 4.3 MMOL/L (3.5-5.1); TOTAL PROTEIN 4.4 G/DL (5.7-8.2)
[2024-01-20] MEDS: GLUCOSE 4 GM CHEW PO PRN (06:02)
[2024-01-20 09:00] VITALS: BP 124/64; TEMP 97.3; O2SAT 97
[2024-01-20] MEDS: SODIUM CHLORIDE 0.9% INJ 10 ML SYR IV SCH (09:00)
[2024-01-20 12:00] VITALS: BP 116/57; TEMP 98.2; O2SAT 93
[2024-01-20 19:54] VITALS: BP 136/61; TEMP 97.9; O2SAT 94
[2024-01-21 03:46] VITALS: BP 133/61; TEMP 97.5; O2SAT 94
[2024-01-21 07:26] LABS: HEMATOCRIT 25.6 % (42.0-52.0); HEMOGLOBIN 7.9 g/dl (13.5-17.5); MEAN CORPUSCULAR HGB CONC 30.9 g/dl (32.0-36.5); MEAN CORPUSCULAR VOLUME 97.3 fl (80.0-96.0); PLATELET COUNT, AUTOMATED 604 10^3/uL (150-450); RED BLOOD COUNT 2.63 10^6/uL (4.30-6.10); WHITE BLOOD COUNT 13.6 10^3/uL (4.0-10.0)
[2024-01-21 07:59] LABS: ALBUMIN 0.8 G/DL (3.2-5.2); ALKALINE PHOSPHATASE 254 U/L (46-116); ALT/SGPT 21 U/L (7.0-40); AST/SGOT 39 U/L (<34); BILIRUBIN,TOTAL 0.2 MG/DL (0.3-1.2); BLOOD UREA NITROGEN 36 MG/DL (9-23); CALCIUM LEVEL 6.5 MG/DL (8.3-10.6); CARBON DIOXIDE LEVEL 22 MMOL/L (20-31); CHLORIDE LEVEL 108 MMOL/L (98-107); CREATININE FOR GFR 1.16 MG/DL (0.70-1.30); GLOMERULAR FILTRATION RATE > 60.0 (>49); GLUCOSE, FASTING 87 MG/DL (74-106); POTASSIUM SERUM 4.2 MMOL/L (3.5-5.1); SODIUM LEVEL 135 MMOL/L (136-145); TOTAL PROTEIN 4.2 G/DL (5.7-8.2)
[2024-01-21 12:00] VITALS: BP 126/61; TEMP 97.7; O2SAT 97
[2024-01-21] MEDS: AUGMENTIN 875 MG TAB PO SCH (12:17)
[2024-01-21 19:37] LABS: BASO % 0.2 % (0.0-1.0); EOS # 0.3 10^3/uL (0.0-0.5); EOS % 1.9 % (0.0-3.0); HEMATOCRIT 24.4 % (42.0-52.0); HEMOGLOBIN 7.7 g/dl (13.5-17.5); LYMPH # 0.7 10^3/uL (1.5-5.0); LYMPH % 4.6 % (24.0-44.0); MEAN CORPUSCULAR HEMOGLOBIN 30.9 pg (27.0-33.0); MEAN CORPUSCULAR HGB CONC 31.6 g/dl (32.0-36.5); MONO % 6.3 % (2.0-8.0); NEUTROPHILS # 13.2 10^3/uL (1.5-8.5); NEUTROPHILS % 86.3 % (36.0-66.0); PLATELET COUNT, AUTOMATED 578 10^3/uL (150-450); RED BLOOD COUNT 2.49 10^6/uL (4.30-6.10); WHITE BLOOD COUNT 15.3 10^3/uL (4.0-10.0)
[2024-01-21 20:13] VITALS: BP 116/59; TEMP 97.7; O2SAT 95
[2024-01-21] MEDS: NORCO, ANEXSIA 5/325MG TABLET (HYDROcodone/ACETAMINOPHEN) PO PRN (20:51)
[2024-01-22] VITALS (8 sets, daily range): BP systolic 120–135; BP diastolic 51–74; TEMP 97.5–98.8; O2SAT 91–98
[2024-01-22 05:26] LABS: HEMATOCRIT 22.8 % (42.0-52.0); HEMOGLOBIN 7.1 g/dl (13.5-17.5); MEAN CORPUSCULAR HEMOGLOBIN 30.5 pg (27.0-33.0); MEAN CORPUSCULAR HGB CONC 31.1 g/dl (32.0-36.5); MEAN CORPUSCULAR VOLUME 97.9 fl (80.0-96.0); PLATELET COUNT, AUTOMATED 574 10^3/uL (150-450); RED BLOOD COUNT 2.33 10^6/uL (4.30-6.10); WHITE BLOOD COUNT 14.9 10^3/uL (4.0-10.0)
[2024-01-22 06:01] LABS: ALBUMIN 0.8 G/DL (3.2-5.2); ALKALINE PHOSPHATASE 213 U/L (46-116); ALT/SGPT 19 U/L (7.0-40); AST/SGOT 23 U/L (<34); BILIRUBIN,TOTAL 0.2 MG/DL (0.3-1.2); BLOOD UREA NITROGEN 35 MG/DL (9-23); CALCIUM LEVEL 6.1 MG/DL (8.3-10.6); CARBON DIOXIDE LEVEL 23 MMOL/L (20-31); CHLORIDE LEVEL 107 MMOL/L (98-107); CREATININE FOR GFR 1.15 MG/DL (0.70-1.30); GLOMERULAR FILTRATION RATE > 60.0 (>49); GLUCOSE, FASTING 129 MG/DL (74-106); POTASSIUM SERUM 4.5 MMOL/L (3.5-5.1); SODIUM LEVEL 134 MMOL/L (136-145)
[2024-01-22 13:41] LABS: HEMATOCRIT 28.4 % (42.0-52.0)
[2024-01-22] MEDS ORDERED: AMOX875T2 PO (14:03)
[2024-01-22] MEDS ORDERED: PROBCAP14 PO (14:03)
[2024-01-22 19:38] LABS: BASO % 0.2 % (0.0-1.0); EOS # 0.3 10^3/uL (0.0-0.5); EOS % 1.4 % (0.0-3.0); HEMATOCRIT 24.7 % (42.0-52.0); LYMPH # 0.8 10^3/uL (1.5-5.0); LYMPH % 3.9 % (24.0-44.0); MEAN CORPUSCULAR HEMOGLOBIN 30.4 pg (27.0-33.0); MEAN CORPUSCULAR HGB CONC 32.4 g/dl (32.0-36.5); MEAN CORPUSCULAR VOLUME 93.9 fl (80.0-96.0); MONO # 1.4 10^3/uL (0.0-0.8); MONO % 6.5 % (2.0-8.0); NEUTROPHILS # 18.7 10^3/uL (1.5-8.5); NEUTROPHILS % 86.7 % (36.0-66.0); PLATELET COUNT, AUTOMATED 576 10^3/uL (150-450); RED BLOOD COUNT 2.63 10^6/uL (4.30-6.10); WHITE BLOOD COUNT 21.5 10^3/uL (4.0-10.0)
[2024-01-23] MEDS: RAMELTEON 8 MG TAB (ROZEREM) PO PRN (02:52)
[2024-01-23 04:00] VITALS: BP 134/55; TEMP 97.3; O2SAT 97
[2024-01-23 06:38] LABS: HEMATOCRIT 23.7 % (42.0-52.0); HEMOGLOBIN 7.6 g/dl (13.5-17.5); MEAN CORPUSCULAR HEMOGLOBIN 29.9 pg (27.0-33.0); MEAN CORPUSCULAR HGB CONC 32.1 g/dl (32.0-36.5); MEAN CORPUSCULAR VOLUME 93.3 fl (80.0-96.0); PLATELET COUNT, AUTOMATED 571 10^3/uL (150-450); RED BLOOD COUNT 2.54 10^6/uL (4.30-6.10); WHITE BLOOD COUNT 18.9 10^3/uL (4.0-10.0)
[2024-01-23 07:10] LABS: ALBUMIN 0.8 G/DL (3.2-5.2); ALKALINE PHOSPHATASE 184 U/L (46-116); ALT/SGPT 19 U/L (7.0-40); AST/SGOT 18 U/L (<34); BILIRUBIN,TOTAL 0.2 MG/DL (0.3-1.2); BLOOD UREA NITROGEN 38 MG/DL (9-23); CALCIUM LEVEL 6.2 MG/DL (8.3-10.6); CARBON DIOXIDE LEVEL 20 MMOL/L (20-31); CHLORIDE LEVEL 109 MMOL/L (98-107); CREATININE FOR GFR 1.07 MG/DL (0.70-1.30); GLOMERULAR FILTRATION RATE > 60.0 (>49); GLUCOSE, FASTING 172 MG/DL (74-106); POTASSIUM SERUM 4.3 MMOL/L (3.5-5.1); SODIUM LEVEL 134 MMOL/L (136-145)
[2024-01-23 08:49] LABS: C REACTIVE PROTEIN QUANTITATIV 9.8 MG/DL (<1.0)
[2024-01-23 08:58] LABS: PROCALCITONIN 1.15 ng/ml
[2024-01-23 10:59] VITALS: BP 114/51; TEMP 97.9; O2SAT 98
[2024-01-23 11:17] VITALS: BP 116/50; TEMP 97.7; O2SAT 98
[2024-01-23 12:00] VITALS: BP 115/51; TEMP 97.5; O2SAT 98
[2024-01-23] MEDS: PIPERACILLIN/TAZOBACTAM SOD 4.5 GM in D5W MINI-BAG PLUS 50 ML IV SCH (13:07)
[2024-01-23 13:11] VITALS: BP 119/56; TEMP 97.9; O2SAT 97
[2024-01-23 15:09] LABS: BASO # 0.1 10^3/uL (0.0-0.2); BASO % 0.2 % (0.0-1.0); EOS # 0.4 10^3/uL (0.0-0.5); EOS % 1.9 % (0.0-3.0); HEMATOCRIT 28.9 % (42.0-52.0); HEMOGLOBIN 9.2 g/dl (13.5-17.5); LYMPH # 0.8 10^3/uL (1.5-5.0); LYMPH % 3.8 % (24.0-44.0); MEAN CORPUSCULAR HEMOGLOBIN 29.9 pg (27.0-33.0); MEAN CORPUSCULAR HGB CONC 31.8 g/dl (32.0-36.5); MEAN CORPUSCULAR VOLUME 93.8 fl (80.0-96.0); MONO # 1.2 10^3/uL (0.0-0.8); NEUTROPHILS # 17.2 10^3/uL (1.5-8.5); NEUTROPHILS % 84.4 % (36.0-66.0); PLATELET COUNT, AUTOMATED 567 10^3/uL (150-450); RED BLOOD COUNT 3.08 10^6/uL (4.30-6.10); WHITE BLOOD COUNT 20.4 10^3/uL (4.0-10.0)
[2024-01-23] MEDS: SIMETHICONE 80MG CHEW TAB PO SCH (15:12)
[2024-01-23 20:00] VITALS: BP 121/55; TEMP 97.9; O2SAT 98
[2024-01-24 05:46] LABS: HEMATOCRIT 28.7 % (42.0-52.0); HEMOGLOBIN 9.4 g/dl (13.5-17.5); MEAN CORPUSCULAR HEMOGLOBIN 30.1 pg (27.0-33.0); MEAN CORPUSCULAR HGB CONC 32.8 g/dl (32.0-36.5); PLATELET COUNT, AUTOMATED 595 10^3/uL (150-450); RED BLOOD COUNT 3.12 10^6/uL (4.30-6.10); WHITE BLOOD COUNT 19.5 10^3/uL (4.0-10.0)
[2024-01-24 06:18] LABS: ALBUMIN 0.8 G/DL (3.2-5.2); ALKALINE PHOSPHATASE 211 U/L (46-116); ALT/SGPT 16 U/L (7.0-40); AST/SGOT 26 U/L (<34); BILIRUBIN,TOTAL 0.2 MG/DL (0.3-1.2); BLOOD UREA NITROGEN 35 MG/DL (9-23); CALCIUM LEVEL 6.8 MG/DL (8.3-10.6); CARBON DIOXIDE LEVEL 20 MMOL/L (20-31); CHLORIDE LEVEL 109 MMOL/L (98-107); CREATININE FOR GFR 1.06 MG/DL (0.70-1.30); GLOMERULAR FILTRATION RATE > 60.0 (>49); GLUCOSE, FASTING 195 MG/DL (74-106); POTASSIUM SERUM 4.7 MMOL/L (3.5-5.1); SODIUM LEVEL 135 MMOL/L (136-145); TOTAL PROTEIN 4.3 G/DL (5.7-8.2)
[2024-01-24] MEDS: LIDOCAINE 5% (LIDODERM) PATCH TD SCH (09:00)
[2024-01-24] MEDS: MEROPENEM INJ 1 GM in IV 1 EA IV SCH (16:02)
[2024-01-24] MEDS: NORCO, ANEXSIA 5/325MG TABLET (HYDROcodone/ACETAMINOPHEN) PO PRN (18:34)
[2024-01-24 19:49] VITALS: BP 135/61; TEMP 98.1; O2SAT 98
[2024-01-25 05:05] VITALS: BP 132/61; TEMP 97.9; O2SAT 98
[2024-01-25 05:16] LABS: HEMATOCRIT 26.5 % (42.0-52.0); HEMOGLOBIN 8.5 g/dl (13.5-17.5); MEAN CORPUSCULAR HEMOGLOBIN 29.8 pg (27.0-33.0); MEAN CORPUSCULAR HGB CONC 32.1 g/dl (32.0-36.5); PLATELET COUNT, AUTOMATED 624 10^3/uL (150-450); RED BLOOD COUNT 2.85 10^6/uL (4.30-6.10); WHITE BLOOD COUNT 17.5 10^3/uL (4.0-10.0)
[2024-01-25 05:38] LABS: ALBUMIN 0.7 G/DL (3.2-5.2); ALKALINE PHOSPHATASE 188 U/L (46-116); ALT/SGPT 15 U/L (7.0-40); AST/SGOT 24 U/L (<34); BILIRUBIN,TOTAL 0.2 MG/DL (0.3-1.2); BLOOD UREA NITROGEN 37 MG/DL (9-23); CALCIUM LEVEL 7.2 MG/DL (8.3-10.6); CARBON DIOXIDE LEVEL 21 MMOL/L (20-31); CHLORIDE LEVEL 110 MMOL/L (98-107); CREATININE FOR GFR 1.09 MG/DL (0.70-1.30); GLOMERULAR FILTRATION RATE > 60.0 (>49); GLUCOSE, FASTING 162 MG/DL (74-106); POTASSIUM SERUM 4.9 MMOL/L (3.5-5.1); SODIUM LEVEL 136 MMOL/L (136-145); TOTAL PROTEIN 4.1 G/DL (5.7-8.2)
[2024-01-25 12:00] VITALS: BP 127/51; TEMP 97.9; O2SAT 98
[2024-01-25 20:00] VITALS: BP 133/54; TEMP 97.9; O2SAT 99
[2024-01-26] VITALS (8 sets, daily range): BP systolic 116–150; BP diastolic 54–64; TEMP 97–98.2; O2SAT 91–98
[2024-01-26 08:05] LABS: BASO # 0.1 10^3/uL (0.0-0.2); BASO % 0.3 % (0.0-1.0); EOS # 0.2 10^3/uL (0.0-0.5); EOS % 0.8 % (0.0-3.0); HEMATOCRIT 29.1 % (42.0-52.0); HEMOGLOBIN 9.3 g/dl (13.5-17.5); LYMPH # 0.9 10^3/uL (1.5-5.0); MEAN CORPUSCULAR HEMOGLOBIN 30.1 pg (27.0-33.0); MEAN CORPUSCULAR VOLUME 94.2 fl (80.0-96.0); MONO % 4.3 % (2.0-8.0); NEUTROPHILS # 19.3 10^3/uL (1.5-8.5); NEUTROPHILS % 86.3 % (36.0-66.0); PLATELET COUNT, AUTOMATED 792 10^3/uL (150-450); RED BLOOD COUNT 3.09 10^6/uL (4.30-6.10); WHITE BLOOD COUNT 22.3 10^3/uL (4.0-10.0)
[2024-01-26 08:30] LABS: BLOOD UREA NITROGEN 45 MG/DL (9-23); CALCIUM LEVEL 7.6 MG/DL (8.3-10.6); CARBON DIOXIDE LEVEL 21 MMOL/L (20-31); CHLORIDE LEVEL 108 MMOL/L (98-107); CREATININE FOR GFR 1.11 MG/DL (0.70-1.30); GLOMERULAR FILTRATION RATE > 60.0 (>49); GLUCOSE, FASTING 171 MG/DL (74-106); MAGNESIUM LEVEL 2.2 MG/DL (1.8-2.4); POTASSIUM SERUM 5.4 MMOL/L (3.5-5.1); SODIUM LEVEL 134 MMOL/L (136-145)
[2024-01-26 14:45] LABS: BLOOD UREA NITROGEN 46 MG/DL (9-23); CALCIUM LEVEL 7.1 MG/DL (8.3-10.6); CARBON DIOXIDE LEVEL 21 MMOL/L (20-31); CHLORIDE LEVEL 106 MMOL/L (98-107); CREATININE FOR GFR 1.14 MG/DL (0.70-1.30); GLOMERULAR FILTRATION RATE > 60.0 (>49); GLUCOSE, FASTING 201 MG/DL (74-106); POTASSIUM SERUM 5.1 MMOL/L (3.5-5.1); SODIUM LEVEL 133 MMOL/L (136-145)
[2024-01-26 14:57] LABS: PROCALCITONIN 0.77 ng/ml
[2024-01-26] MEDS ORDERED: fentaNYL 250 MCG/5 ML INJECTION As Ordered ONE (17:54)
[2024-01-26] MEDS ORDERED: SUGAMMADEX SODIUM 500 MG/5 ML VIAL (BRIDION) As Ordered ONE (19:12)
[2024-01-26] MEDS: INSULIN LISPRO (NovoLOG) PER UNIT SC PRN (21:14)
[2024-01-26] MEDS: NS 1,000 ML IV SCH (23:12)
[2024-01-27] VITALS (51 sets, daily range): BP systolic 87–216; BP diastolic 44–83; TEMP 96.2–98.6; O2SAT 86–100
[2024-01-27] MEDS: ALBUTEROL 90 MCG/ACT 8GM HFA INHALER INH PRN (03:19)
[2024-01-27] MEDS ORDERED: NALOXONE 2MG/2ML SYRINGE As Ordered ONE (03:40)
[2024-01-27 04:01] LABS: ABG BASE EXCESS -28.5 (-2.0-2.0); ABG HCO3 5.2 MMOL/L (22.0-26.0); ABG O2 SATURATION 98.7 % (95.0-99.0); ABG PARTIAL PRESSURE CO2 37.4 mmHg (35.0-45.0); ABG PARTIAL PRESSURE O2 262.3 mmHg (75.0-100.0); ABG STANDARD HCO3 4.1 MMOL/L. (22.0-26.0); ABG TOTAL CO2 6.3 MMOL/L (23.0-31.0)
[2024-01-27 04:02] LABS: ABG pH (ARTERIAL) 6.759 UNITS (7.350-7.450)
[2024-01-27] MEDS ORDERED: SODIUM BICARBONATE 8.4% INJ 50ML SYRINGE As Ordered ONE (04:08)
[2024-01-27] MEDS ORDERED: FENTANYL DRIP LOCK BOX KEY 1 EACH XX PRN (04:15)
[2024-01-27] MEDS ORDERED: MIDAZOLAM 100MG/100ML-0.9%NACL IV ONE (04:15)
[2024-01-27] MEDS ORDERED: PROPOFOL 1,000 MG/100 ML VIAL As Ordered ONE (04:16)
[2024-01-27 04:19] LABS: HEMATOCRIT 25.8 % (42.0-52.0); HEMOGLOBIN 7.5 g/dl (13.5-17.5); MEAN CORPUSCULAR HGB CONC 29.1 g/dl (32.0-36.5); MEAN CORPUSCULAR VOLUME 106.6 fl (80.0-96.0); RED BLOOD COUNT 2.42 10^6/uL (4.30-6.10)
[2024-01-27] MEDS ORDERED: MIDAZOLAM 5MG/ML 1ML VIAL As Ordered ONE (04:23)
[2024-01-27 04:30] LABS: WHITE BLOOD COUNT 73.2 10^3/uL (4.0-10.0)
[2024-01-27 04:31] LABS: INR 1.7; PARTIAL THROMBOPLASTIN TIME 118.9 SECONDS (24.8-34.2); PLATELET COUNT, AUTOMATED 1007 10^3/uL (150-450); PROTHROMBIN TIME 19.4 SECONDS (12.5-14.5)
[2024-01-27] MEDS: propofoL 200 MG/20 ML VIAL IV ONE (04:31)
[2024-01-27] MEDS: NALOXONE 2MG/2ML SYRINGE IV STA (04:31)
[2024-01-27] MEDS: ETOMIDATE INJ 20MG/10ML VIAL IV ONE (04:31)
[2024-01-27] MEDS: SODIUM BICARBONATE 8.4% INJ 50ML SYRINGE IV STA ×2 (04:32→08:30)
[2024-01-27] MEDS: NS 1,000 ML IV SCH (04:34)
[2024-01-27] MEDS: MIDAZOLAM INJ 2MG/2ML VIAL IV STA (04:35)
[2024-01-27] MEDS: NOREPINEPHRINE 4MG IN D5 250ML 4 MG in IV 1 EA IV SCH (04:41)
[2024-01-27 04:42] LABS: ABG BASE EXCESS -20.9 (-2.0-2.0); ABG HCO3 7.6 MMOL/L (22.0-26.0); ABG O2 SATURATION 98.5 % (95.0-99.0); ABG PARTIAL PRESSURE CO2 27.1 mmHg (35.0-45.0); ABG PARTIAL PRESSURE O2 190.7 mmHg (75.0-100.0); ABG STANDARD HCO3 8.5 MMOL/L. (22.0-26.0); ABG TOTAL CO2 8.5 MMOL/L (23.0-31.0)
[2024-01-27] MEDS: fentaNYL CITRATE/NaCl 1,000 MCG in IV 1 EA IV SCH ×2 (04:44→12:25)
[2024-01-27 04:45] LABS: ABG pH (ARTERIAL) 7.067 UNITS (7.350-7.450)
[2024-01-27 05:02] LABS: ALBUMIN 0.7 G/DL (3.2-5.2); ALKALINE PHOSPHATASE 180 U/L (46-116); ALT/SGPT 38 U/L (7.0-40); AST/SGOT 110 U/L (<34); BILIRUBIN,DIRECT 0.2 MG/DL (<0.4); BILIRUBIN,TOTAL 0.2 MG/DL (0.3-1.2); BLOOD UREA NITROGEN 48 MG/DL (9-23); CALCIUM LEVEL 7.2 MG/DL (8.3-10.6); CARBON DIOXIDE LEVEL < 10.0 MMOL/L (20-31); CHLORIDE LEVEL 110 MMOL/L (98-107); CREATININE FOR GFR 1.56 MG/DL (0.70-1.30); GLOMERULAR FILTRATION RATE 47.6 (>49); GLUCOSE, FASTING 155 MG/DL (74-106); MAGNESIUM LEVEL 2.4 MG/DL (1.8-2.4); POTASSIUM SERUM 6.9 MMOL/L (3.5-5.1); SODIUM LEVEL 135 MMOL/L (136-145); TOTAL PROTEIN 3.8 G/DL (5.7-8.2)
[2024-01-27 05:21] LABS: ATYPICAL LYMPH 3 % (0-5); LYMPHOCYTES 9 % (16-44); METAMYELOCYTES 1 % (0-0); MONOCYTES 5 % (0-5); NEUTROPHILS 66 % (28-66); POLYCHROMASIA 1+
[2024-01-27 05:22] LABS: BURR CELLS 2+; POIKILOCYTOSIS 2+
[2024-01-27 05:23] LABS: HYPOCHROMASIA 1+
[2024-01-27 05:25] LABS: PLATELET CLUMPS MODERATE AMT; PLATELET ESTIMATE INVALID (NORMAL)
[2024-01-27 05:26] LABS: ANISOCYTOSIS 2+; MICROCYTOSIS 1+
[2024-01-27] MEDS: HumuLIN R (REGULAR) INSULIN (NovoLIN R) **100U/ML** PER UNIT IV STA (05:30)
[2024-01-27] MEDS: DEXTROSE 50% 50ML SYRINGE IV STA (05:30)
[2024-01-27] MEDS: CALCIUM GLUCONATE 1,000 MG in D5W MINI-BAG PLUS 100 ML IV ONE (05:34)
[2024-01-27] MEDS: SOD POLYSTYRENE SULFONATE SUSP 15GM 60ML UD PO ONE (05:37)
[2024-01-27] MEDS: FUROSEMIDE 40MG/4ML VIAL IV ONE (05:44)
[2024-01-27] MEDS: MIDAZOLAM INJ 2MG/2ML VIAL IV PRN (05:52)
[2024-01-27] MEDS: SODIUM BICARBONATE 150 MEQ in STERILE WATER LITER BAG 1,000 ML IV SCH (06:37)
[2024-01-27 06:53] LABS: BASO # 0.2 10^3/uL (0.0-0.2); BASO % 0.4 % (0.0-1.0); EOS % 0.1 % (0.0-3.0); HEMATOCRIT 26.6 % (42.0-52.0); LYMPH # 1.9 10^3/uL (1.5-5.0); LYMPH % 3.2 % (24.0-44.0); MEAN CORPUSCULAR HEMOGLOBIN 30.3 pg (27.0-33.0); MEAN CORPUSCULAR HGB CONC 30.1 g/dl (32.0-36.5); MEAN CORPUSCULAR VOLUME 100.8 fl (80.0-96.0); MONO % 3.3 % (2.0-8.0); NEUTROPHILS # 50.1 10^3/uL (1.5-8.5); NEUTROPHILS % 83.5 % (36.0-66.0); RED BLOOD COUNT 2.64 10^6/uL (4.30-6.10)
[2024-01-27] MEDS: propofoL 1,000 MG in IV 1 EA IV SCH (06:56)
[2024-01-27 06:59] LABS: PLATELET COUNT, AUTOMATED 872 10^3/uL (150-450); WHITE BLOOD COUNT 59.9 10^3/uL (4.0-10.0)
[2024-01-27 07:29] LABS: BLOOD UREA NITROGEN 52 MG/DL (9-23); CALCIUM LEVEL 7.2 MG/DL (8.3-10.6); CARBON DIOXIDE LEVEL < 10.0 MMOL/L (20-31); CHLORIDE LEVEL 109 MMOL/L (98-107); CREATININE FOR GFR 1.62 MG/DL (0.70-1.30); GLOMERULAR FILTRATION RATE 45.6 (>49); GLUCOSE, FASTING 215 MG/DL (74-106); MAGNESIUM LEVEL 2.2 MG/DL (1.8-2.4); POTASSIUM SERUM 6.1 MMOL/L (3.5-5.1); SODIUM LEVEL 135 MMOL/L (136-145)
[2024-01-27] MEDS ORDERED: GLUCOSE 4 GM CHEW PO PRN (07:50)
[2024-01-27] MEDS ORDERED: DEXTROSE 50% 50ML SYRINGE IV PRN (07:50)
[2024-01-27] MEDS ORDERED: GLUCAGON INJ 1MG VIAL SC PRN (07:50)
[2024-01-27] MEDS ORDERED: MIDAZOLAM INJ 2MG/2ML VIAL IV PRN (08:05)
[2024-01-27] MEDS: INSULIN LISPRO (NovoLOG) PER UNIT SC SCH (08:32)
[2024-01-27] MEDS: FUROSEMIDE 100MG/10ML VIAL IV ONE (08:34)
[2024-01-27 10:12] LABS: VENOUS BASE EXCESS -7.8 (-2.0-2.0); VENOUS O2 SATURATION 95.5 % (60.0-80.0); VENOUS PARTIAL PRESSURE CO2 31.9 mmHg (38.0-50.0); VENOUS PARTIAL PRESSURE O2 77.3 mmHg (30.0-50.0); VENOUS PH 7.344 UNITS (7.330-7.430); VENOUS STANDARD HCO3 18.1 MMOL/L
[2024-01-27] MEDS: MORPHINE 2 MG/ML 1ML VIAL IV PRN (10:14)
[2024-01-27 10:27] LABS: CALCIUM LEVEL 6.4 MG/DL (8.3-10.6); CREATININE FOR GFR 1.69 MG/DL (0.70-1.30); GLOMERULAR FILTRATION RATE 43.4 (>49)
[2024-01-27 10:41] LABS: ALBUMIN 0.7 G/DL (3.2-5.2); BILIRUBIN,DIRECT 0.4 MG/DL (<0.4); BILIRUBIN,TOTAL 0.5 MG/DL (0.3-1.2); TOTAL PROTEIN 3.3 G/DL (5.7-8.2)
[2024-01-27] MEDS ORDERED: ACETAMINOPHEN 650MG SUPP PR PRN (12:25)
[2024-01-27] MEDS ORDERED: ONDANSETRON 4MG 2ML VIAL IV PRN (12:25)
[2024-01-27] MEDS ORDERED: MORPHINE 2 MG/ML 1ML VIAL IV PRN (12:25)
[2024-01-27] MEDS ORDERED: HYOSCYAMINE SULFATE 0.125 MG SUBL TABLET PO PRN (12:25)
[2024-01-27] MEDS ORDERED: ATROPINE SULFATE 1% OPHTH SOLN 2ML BTL SL PRN (12:25)
[2024-01-27] MEDS ORDERED: BISACODYL 10MG SUPP PR PRN (12:25)
[2024-01-27] MEDS: LORazepam 2 MG/ML 1ML VIAL IV PRN (13:58)
[2024-01-28] MEDS ORDERED: MEROPENEM INJ 1 GM in IV 1 EA IV SCH (06:00)
[2024-01-28] MEDS: fentaNYL CITRATE/NaCl 1,000 MCG in IV 1 EA IV SCH (08:00)
== END 2024-01-28 08:28 | disposition expired | DRG 329 ==
LOC: EDBD 00:53 → M ED 00:53 → M SDC 07:35 → M ICU 10:45 → M MSPAV 01-19 11:10 → M SDC 01-19 11:32 → M MSPAV 01-19 11:32 → M ICU 01-27 03:31 → M MSPAV 01-27 18:12
PROVIDERS: ADMIT Surgery; ATTEND Student in an Organized Health Care Education/Training Program
PROC: 8E0W4CZ Robotic Assisted Procedure of Trunk Region, Percutaneous Endoscopic Approach (ICD-10-PCS; 2024-01-18)
PROC: 30233N1 Transfusion of Nonautologous Red Blood Cells into Peripheral Vein, Percutaneous Approach (ICD-10-PCS; 2024-01-18)
PROC: 0DB84ZZ Excision of Small Intestine, Percutaneous Endoscopic Approach (ICD-10-PCS; principal; 2024-01-18 07:30)
PROC: 0D1 Gastrointestinal System, Bypass (ICD-10-PCS; 2024-01-26)
PROC: 0DB80ZZ Excision of Small Intestine, Open Approach (ICD-10-PCS; 2024-01-27)
PROC: 02HV33Z Insertion of Infusion Device into Superior Vena Cava, Percutaneous Approach (ICD-10-PCS; 2024-01-27)
PROC: 5A1935Z Respiratory Ventilation, Less than 24 Consecutive Hours (ICD-10-PCS; 2024-01-27)
DX: K63.1 Perforation of intestine (nontraumatic) (principal); A41.9 Sepsis, unspecified organism; R65.21 Severe sepsis with septic shock; J96.01 Acute respiratory failure with hypoxia; K65.9 Peritonitis, unspecified; C78.6 Secondary malignant neoplasm of retroperitoneum and peritoneum; C78.02 Secondary malignant neoplasm of left lung; I13.0 Hypertensive heart and chronic kidney disease with heart failure and stage 1 through stage 4 chronic kidney disease, or unspecified chronic kidney disease; C64.2 Malignant neoplasm of left kidney, except renal pelvis; I50.32 Chronic diastolic (congestive) heart failure; C79.51 Secondary malignant neoplasm of bone; R18.8 Other ascites; N17.9 Acute kidney failure, unspecified; E87.20 Acidosis, unspecified; E11.42 Type 2 diabetes mellitus with diabetic polyneuropathy; K90.0 Celiac disease; E66.9 Obesity, unspecified; Z68.30 Body mass index [BMI] 30.0-30.9, adult; K21.9 Gastro-esophageal reflux disease without esophagitis; E03.9 Hypothyroidism, unspecified; M17.0 Bilateral primary osteoarthritis of knee; E78.5 Hyperlipidemia, unspecified; Z51.5 Encounter for palliative care; J45.909 Unspecified asthma, uncomplicated; M10.9 Gout, unspecified; N40.0 Benign prostatic hyperplasia without lower urinary tract symptoms; M54.50 Low back pain, unspecified; N18.30 Chronic kidney disease, stage 3 unspecified; R49.0 Dysphonia; L89.610 Pressure ulcer of right heel, unstageable; L89.322 Pressure ulcer of left buttock, stage 2; E87.5 Hyperkalemia; D64.9 Anemia, unspecified; T45.1X5A Adverse effect of antineoplastic and immunosuppressive drugs, initial encounter; R57.1 Hypovolemic shock; B96.1 Klebsiella pneumoniae [K. pneumoniae] as the cause of diseases classified elsewhere; K76.9 Liver disease, unspecified; Z90.5 Acquired absence of kidney; Z79.4 Long term (current) use of insulin; Z79.899 Other long term (current) drug therapy; Z79.69 Long term (current) use of other immunomodulators and immunosuppressants